=== PATIENT | male | born 1935 | race Caucasian/White ===

== ENCOUNTER 2017-01-18 17:30 | Inpatient (IN) | payer OTHER, MEDICARE ==
[~2017-01-18] VITALS: Ht 188 cm; Wt 107.1 kg
--- NOTE | 2017-01-18 17:30 | NUR ---
Patient to ER bed 1 to gown for evaluation. Side rails up. Report given to Liz FERNANDES.
--- NOTE | 2017-01-18 17:35 | NUR ---
Patient to ER C/O SOB. Patient states that yesterday he felt sick and today he is unable to breathe. AAOx4, accessory muscle effort, lower bases crackles, diminished upper lobes, rhonchi, productive cough.
--- NOTE | 2017-01-18 17:36 | NUR ---
ER MD Kerr at bedside for evaluation
[2017-01-18 17:40] VITALS: BP 150/77; PULSE 77; RESP 26; TEMP 98.1; O2SAT 89
--- NOTE | 2017-01-18 17:40 | NUR ---
RT at bedside for breathing treatments
[2017-01-18] MEDS ORDERED: LEVOFLOXACIN 500 MG/D5W 100 ML IV ONE (17:45)
[2017-01-18] MEDS ORDERED: ASPIRIN 81 MG TAB.CHEW PO ONE (17:45)
[2017-01-18] MEDS ORDERED: ALBUTEROL SULFATE 0.083% 2.5 MG/3 ML VIAL.NEB INH ONE (17:45)
[2017-01-18] MEDS ORDERED: FUROSEMIDE 40 MG/4 ML VIAL IVP ONE (17:45)
[2017-01-18] MEDS ORDERED: NITROGLYCERIN 1 INCH (GM) OINT. TP ONE (17:45)
[2017-01-18 17:57] LABS: BASOPHILS % (AUTO) 0.1 % (0.0-2.0); MEAN CORPUSCULAR HGB CONC 34 % (32-36)
[2017-01-18 18:01] LABS: ANION GAP 11 (5-15); CALCIUM 8.7 mg/dL (8.4-11.0); CHLORIDE 104 mmol/L (98-107); CREATININE 1.21 mg/dL (0.55-1.30); GLUCOSE 163 mg/dL (70-99); POTASSIUM 4.2 mmol/L (3.5-5.1); SODIUM SERUM 139 mmol/L (136-145); UREA NITROGEN, BLOOD 39 mg/dL (8-21)
[2017-01-18 18:06] LABS: ALANINE AMINOTRANSFERASE 76 U/L (12-78); ALBUMIN 3.2 g/dL (3.4-4.8); ASPARTATE AMINOTRANSFERASE 52 U/L (10-37); TOTAL BILIRUBIN 2.1 mg/dL (0.0-1.0); TOTAL PROTEIN, SERUM 6.7 g/dL (6.4-8.3)
[2017-01-18 18:10] LABS: INR 1.4 (0.80-1.20); PROTHROMBIN TIME 15.6 SECS (9.5-12.5)
[2017-01-18 18:11] LABS: LYMPHOCYTES # (AUTO) 1.3 K/uL (1.0-5.5); LYMPHOCYTES % (AUTO) 10.4 % (20.5-51.5); MEAN CORPUSCULAR HEMOGLOBIN 31 pg (27-31); MEAN CORPUSCULAR VOLUME 89 fL (79.0-98.0); MONOCYTES # (AUTO) 2.1 K/uL (0.0-1.0); MONOCYTES % (AUTO) 17.5 % (1.7-9.3); NEUTROPHILS # (AUTO) 8.7 K/uL (1.8-7.7); RED BLOOD CELL COUNT(AUTO) 3.92 MIL/uL (4.2-6.2); RED CELL DISTRIBUTION WIDTH 13.6 % (9.0-15.0); WHITE BLOOD COUNT (AUTO) 12.1 K/uL (4.8-10.8)
[2017-01-18 18:11] LABS: ABG TOTAL HEMOGLOBIN 12.5 G/dL (12.0-18.0); BLOOD GAS BASE EXCESS -2.8 mmol/L (-3.0-3.0); BLOOD GAS COHb% 0.9 % (0.5-1.5); BLOOD GAS HHB 1.3 % (0.0-6.0); BLOOD GAS PH 7.385 (7.350-7.450); BLOOD O2Hb% 97.2 % (94.0-97.0)
[2017-01-18] MEDS ORDERED: OMEP20CA10 PO (18:21)
[2017-01-18] MEDS ORDERED: IBRU140C PO (18:21)
[2017-01-18] MEDS ORDERED: APIX5TAB PO (18:21)
[2017-01-18] MEDS ORDERED: CORCR40 PO (18:21)
[2017-01-18] MEDS ORDERED: DDA.1 PO (18:21)
[2017-01-18] MEDS ORDERED: LISI2.5T48 PO (18:21)
[2017-01-18] MEDS ORDERED: ACET-1010 PO (18:21)
--- NOTE | 2017-01-18 18:21 | NUR ---
Medication reconciliation completed with information provided by - handwritten list from patient. Any prior medication reconciliation on file was reviewed and corrected.
[2017-01-18 18:38] LABS: PLATELET COUNT (AUTO) 112 K/uL (130-430)
--- NOTE | 2017-01-18 18:42 | NUR ---
Patient meets SEPSIS protocol. ER MD Kerr aware of presentation and lab results. Awaiting fluids & ABX
[2017-01-18 18:46] LABS: BILIRUBIN,URINE 1+ (NEGATIVE); BLOOD, URINE TRACE (NEGATIVE); CLARITY/URINE CLEAR (CLEAR); COLOR,URINE YELLOW (YELLOW); GLUCOSE,URINE NEGATIVE (NEGATIVE); KETONES,URINE TRACE (NEGATIVE); LEUKOCYTE ESTERASE ,URINE NEGATIVE (NEGATIVE); NITRITE, URINE NEGATIVE (NEGATIVE); PROTEIN URINE 1+ (NEGATIVE)
[2017-01-18 18:55] LABS: BACTERIA,URINE FEW /HPF (None Seen); FINE GRANULAR CASTS,URINE 0-10 /LPF (None Seen); MUCUS,URINE 2+ /LPF (None Seen); RBC,URINE 0-3 /HPF (0-3); WBC,URINE 0-3 /HPF (0-3)
--- NOTE | 2017-01-18 19:05 | NUR ---
Patient will be admitted to care of DR ALFARO. Admitted to ICU unit. Will go to room ER HOLD. Belongings list completed. Summary report printed. Report given to RN.
--- NOTE | 2017-01-18 19:07 | NUR ---
ICU HOLD per ICU charge, no beds or nurses available. food service supervisor and charge nurse aware.
--- NOTE | 2017-01-18 19:30 | NUR ---
Calling consults Dr Winchester - Cardiology Dr Craig - Pulmonology
--- NOTE | 2017-01-18 19:47 | NUR ---
MD ALFARO at bedside evaluating the patient.
--- NOTE | 2017-01-18 20:06 | NUR ---
Patient evaluated by MD Gloria. Per MD Gloria patient is downgraded to TELE floor.
--- NOTE | 2017-01-18 20:09 | NUR ---
Patient will be admitted to care of DR ALFARO. Admitted to TELE IN unit. Will go to room 107A. Belongings list completed. Summary report printed. Report given to RN.
--- NOTE | 2017-01-18 20:12 | NUR ---
Transfer to 107A via ACLS protocol. Licensed nurse present. IV present no signs or symptoms of infiltration.
--- NOTE | 2017-01-18 20:24 | NUR ---
CONSULTATION PAGED REASON FOR CONSULTATION:PNEUMONIA,CLL WAS CONSULT CALLED?Y PERSON WHO WAS NOTIFIED:JUAN CARLOS CONSULTING PHYSICIAN:YONNY BYRD LAND LEASE INFORMATION CLERK SPECIALTY:INFECTIOUS DISEASE LAND LEASE INFORMATION CLERK PHONE NUMBER:[phone]
--- NOTE | 2017-01-18 20:24 | NUR ---
Admission Note Received patient from ER with diagnosis of ARF, PNA. Initial Plan of Care discussed-patient verbalized understanding. Family at bedside. Oriented to room, call light, pain management and safety.
[2017-01-18] MEDS ORDERED: ACETAMINOPHEN 500 MG TABLET PO SCH (20:30)
--- NOTE | 2017-01-18 20:30 | NUR ---
opening note received patient resting in bed. vs stable. no s/s resp distress. oxymizer in place at 3liters. 02 sat 95%. discoloration noted to bilat lower extremities. occasional coughing noted. no c/o pain. comm board updated.
--- NOTE | 2017-01-18 20:32 | NUR ---
CONSULTATION PAGED REASON FOR CONSULTATION:ELEVATED TROPONIN WAS CONSULT CALLED?Y PERSON WHO WAS NOTIFIED:KATE CONSULTING PHYSICIAN:NAWAF LEIGH STATEMENT CLERK SPECIALTY:RELIGIOUS ACTIVITIES DIRECTOR PHONE NUMBER:[phone]
[2017-01-18 20:36] VITALS: BP 133/81; PULSE 60; RESP 22; TEMP 98.2; O2SAT 95
--- NOTE | 2017-01-18 20:38 | NUR ---
CONSULTATION PAGED REASON FOR CONSULTATION:ACUTE RESPIRATORY FAILURE, PNEUMONIA WAS CONSULT CALLED?Y PERSON WHO WAS NOTIFIED:JUAN CARLOS CONSULTING PHYSICIAN:SARA BOURNE ([employer]) SANDBLASTER STONE SPECIALTY:PULMONARY SANDBLASTER STONE PHONE NUMBER:[phone]
[2017-01-18 21:00] VITALS: BP 133/81; PULSE 64; RESP 22; TEMP 97.8; O2SAT 95
[2017-01-18] MEDS ORDERED: IBRUTINIB 420 MG PO SCH (21:00)
[2017-01-18] MEDS: NITROGLYCERIN 1 INCH (GM) OINT. TP SCH (22:18)
[2017-01-18] MEDS: CARVEDILOL 12.5 MG TABLET (COREG) PO SCH (22:19)
[2017-01-18] MEDS: CEFEPIME 1 GM in D5W 50 ML IV SCH (23:00)
[2017-01-18] MEDS: ALBUTEROL SULFATE 0.083% 2.5 MG/3 ML VIAL.NEB INH SCH (23:34)
[2017-01-18] MEDS: IPRATROPIUM BROM 0.5 MG/2.5 ML VIAL.NEB (ATROVENT) INH PRN (23:34)
[2017-01-18 23:45] VITALS: BP 133/81; PULSE 65
[2017-01-19 00:35] VITALS: BP 109/58; PULSE 77; RESP 21; TEMP 97.6; O2SAT 95
[2017-01-19] MEDS: guaiFENesin 200 MG/10 ML UDC PO PRN ×3 (02:57→23:11)
--- NOTE | 2017-01-19 02:58 | NUR ---
cough pt continues to rest. cough med given as ordered for cough. will continue to monitor. no s/s resp distress.
[2017-01-19] MEDS: IPRATROPIUM BROM 0.5 MG/2.5 ML VIAL.NEB (ATROVENT) INH PRN (03:50)
[2017-01-19] MEDS: ALBUTEROL SULFATE 0.083% 2.5 MG/3 ML VIAL.NEB INH SCH ×4 (03:50→19:46)
[2017-01-19 04:21] VITALS: BP 117/64; PULSE 58; RESP 21; TEMP 97.8; O2SAT 95
--- NOTE | 2017-01-19 05:00 | NUR ---
RN ROUNDS PT. RESTING QUIETLY, VITAL SIGNS STABLE, NO DISTRESS NOTED, DENIES PAIN, CALL LIGHT WITHIN REACH, WILL CONTINUE TO MONITOR. Addendum: 01/20/17 at 2002 by Lynette Villa RN DISREGARD NOTE, WRONG DATE ENTERED
[2017-01-19] MEDS: NITROGLYCERIN 1 INCH (GM) OINT. TP SCH ×3 (06:00→21:25)
[2017-01-19 06:28] LABS: HEMATOCRIT 32.7 % (36-54); HEMOGLOBIN 10.5 g/dL (14.0-18.0); LYMPHOCYTES # (AUTO) 0.6 K/uL (1.0-5.5); LYMPHOCYTES % (AUTO) 7.9 % (20.5-51.5); MEAN CORPUSCULAR HEMOGLOBIN 30 pg (27-31); MEAN CORPUSCULAR HGB CONC 32 % (32-36); MEAN CORPUSCULAR VOLUME 92 fL (79.0-98.0); MONOCYTES # (AUTO) 0.8 K/uL (0.0-1.0); MONOCYTES % (AUTO) 11.1 % (1.7-9.3); NEUTROPHILS # (AUTO) 5.9 K/uL (1.8-7.7); RED BLOOD CELL COUNT(AUTO) 3.57 MIL/uL (4.2-6.2); RED CELL DISTRIBUTION WIDTH 13.6 % (9.0-15.0)
--- NOTE | 2017-01-19 06:30 | NUR ---
rounds pt resting. no coughing noted at this time . cough medication effective. blood pressure 100/53. hr 61 held nitropaste. will endorse to morning nurse. no s/s resp distress. respirations even and unlabored.
[2017-01-19 06:40] LABS: ALANINE AMINOTRANSFERASE 68 U/L (12-78); ALBUMIN 2.6 g/dL (3.4-4.8); ANION GAP 9 (5-15); ASPARTATE AMINOTRANSFERASE 45 U/L (10-37); CALCIUM 8.5 mg/dL (8.4-11.0); CHLORIDE 105 mmol/L (98-107); CREATININE 0.98 mg/dL (0.55-1.30); GLUCOSE 142 mg/dL (70-99); POTASSIUM 3.7 mmol/L (3.5-5.1); SODIUM SERUM 139 mmol/L (136-145); TOTAL BILIRUBIN 1.5 mg/dL (0.0-1.0); TOTAL PROTEIN, SERUM 5.9 g/dL (6.4-8.3); UREA NITROGEN, BLOOD 38 mg/dL (8-21)
[2017-01-19 07:02] LABS: WHITE BLOOD COUNT (AUTO) 7.3 K/uL (4.8-10.8)
--- NOTE | 2017-01-19 08:30 | NUR ---
AM handoff report and vital signs.
[2017-01-19 08:39] LABS: PLATELET COUNT (AUTO) 51 K/uL (130-430)
[2017-01-19] MEDS: FLUTICASONE PROPIONATE 50 mCg/SPRAY 16 GM NS SCH ×2 (09:00→21:00)
[2017-01-19] MEDS: OMEPRAZOLE 20 MG CAPSULE.DR (PriLOSEC) PO SCH (09:04)
[2017-01-19] MEDS: CARVEDILOL 12.5 MG TABLET (COREG) PO SCH ×2 (09:04→21:24)
[2017-01-19] MEDS: LISINOPRIL 5 MG TABLET PO SCH (09:04)
[2017-01-19] MEDS: APIXABAN 2.5 MG TABLET PO SCH ×2 (09:06→21:24)
--- NOTE | 2017-01-19 09:07 | NUR ---
Nutrition Update Steve Scale 15 noted. Pt admitted for acute respiratory failure, pneumonia. Diet: cardiac BMI: 30.7 kg/m2 RD to follow per nutrition care standards.
[2017-01-19] MEDS: methylPREDNISolone SOD SUCC/PF 62.5 MG/ML VIAL IVP SCH ×2 (09:09→21:23)
[2017-01-19] MEDS: DESMOPRESSIN 0.1 MG TAB (DDAVP) PO SCH (09:09)
[2017-01-19] MEDS: TEARS ARTIFICIAL 15 ML DROPS OP PRN (09:09)
[2017-01-19 09:15] VITALS: BP 105/71; PULSE 63; RESP 20; TEMP 97.2; O2SAT 93
--- NOTE | 2017-01-19 10:30 | NUR ---
Patient rounds. Slight confusion. Will continue to monitor for safety.
[2017-01-19 11:46] VITALS: BP 119/54; PULSE 63; RESP 20; TEMP 98; O2SAT 98
[2017-01-19 12:32] VITALS: Ht 188 cm; Wt 107.1 kg
--- NOTE | 2017-01-19 12:42 | NUR ---
Rounds to patient. Given extra orange juice at this time.
[2017-01-19] MEDS ORDERED: FUROSEMIDE 20 MG/2 ML VIAL IVP ONE (14:45)
[2017-01-19] MEDS: IPRATROPIUM BROM 0.5 MG/2.5 ML VIAL.NEB (ATROVENT) INH SCH ×2 (16:00→19:47)
[2017-01-19 16:07] VITALS: BP 116/52; PULSE 70; RESP 20; TEMP 97.8; O2SAT 97
[2017-01-19] MEDS: MONTELUKAST 10 MG TABLET PO SCH (17:53)
[2017-01-19] MEDS ORDERED: VANCOMYCIN HCL 1 GM/NS PREMIX 250 ML IV ONE (18:00)
[2017-01-19 19:45] VITALS: BP 112/56; PULSE 57; RESP 20; TEMP 97.6; O2SAT 97
--- NOTE | 2017-01-19 19:45 | NUR ---
PM ASSESSMENT PT. A/OX4, VITAL SIGNS STABLE, NO DISTRESS NOTED, DENIES PAIN, PT. IS CURRENTLY RECEIVING BREATHING TREATMENT AT THIS TIME. UPDATED WITH PLAN OF CARE, ENCOURAGED PT. TO USE CALL LIGHT FOR ASSISTANCE, CALL LIGHT WITHIN REACH, WILL CONTINUE TO MONITOR.
[2017-01-19] MEDS: CEFEPIME 1 GM in D5W 50 ML IV SCH (21:23)
--- NOTE | 2017-01-19 21:30 | NUR ---
RN ROUNDS PT. RESTING QUIETLY, VITAL SIGNS STABLE, NO DISTRESS NOTED, DENIES PAIN, CALL LIGHT WITHIN REACH, WILL CONTINUE TO MONITOR.
[2017-01-19] MEDS: LEVOFLOXACIN 500 MG/D5W 100 ML IV SCH (23:21)
--- NOTE | 2017-01-19 23:46 | NUR ---
PT. REFUSED SCDS PT. REFUSED SCDS, EDUCATION GIVEN REGARDING DVT PROPHYLAXIS, PT. STILL REFUSED SCDS, SCDS NOT APPLIED.
[2017-01-20] VITALS (7 sets, daily range): BP systolic 119–145; BP diastolic 68–94; PULSE 60–67; RESP 18–21; TEMP 97–98.1; O2SAT 93–97
[2017-01-20] MEDS: ALBUTEROL SULFATE 0.083% 2.5 MG/3 ML VIAL.NEB INH SCH ×7 (00:15→23:25)
[2017-01-20] MEDS: IPRATROPIUM BROM 0.5 MG/2.5 ML VIAL.NEB (ATROVENT) INH SCH ×7 (00:15→23:25)
--- NOTE | 2017-01-20 00:34 | NUR ---
Consultation Paged Reason for consultation: Thrombocytopenia Was consult called: Yes Person who was notified: Lashawn Consulting Physician: Abimael Gabriel Community Educator Specialty: Hematology Consulting
--- NOTE | 2017-01-20 01:00 | NUR ---
RN ROUNDS PT. RESTING QUIETLY, VITAL SIGNS STABLE, NO DISTRESS NOTED, DENIES PAIN, CALL LIGHT WITHIN REACH, WILL CONTINUE TO MONITOR.
--- NOTE | 2017-01-20 03:00 | NUR ---
RN ROUNDS PT. RESTING QUIETLY, VITAL SIGNS STABLE, NO DISTRESS NOTED, DENIES PAIN, CALL LIGHT WITHIN REACH, WILL CONTINUE TO MONITOR.
--- NOTE | 2017-01-20 05:00 | NUR ---
RN ROUNDS PT. RESTING QUIETLY, VITAL SIGNS STABLE, NO DISTRESS NOTED, DENIES PAIN, CALL LIGHT WITHIN REACH, WILL CONTINUE TO MONITOR.
[2017-01-20] MEDS: NITROGLYCERIN 1 INCH (GM) OINT. TP SCH ×3 (05:44→21:21)
--- NOTE | 2017-01-20 06:30 | NUR ---
CLOSING NOTES PT. RESTING QUIETLY, VITAL SIGNS STABLE, NO DISTRESS NOTED, DENIES PAIN, CALL LIGHT WITHIN REACH, KEPT COMFORTABLE.
[2017-01-20 06:33] LABS: BASOPHILS % (AUTO) 0.1 % (0.0-2.0); HEMATOCRIT 33.5 % (36-54); HEMOGLOBIN 10.9 g/dL (14.0-18.0); LYMPHOCYTES % (AUTO) 10.3 % (20.5-51.5); MEAN CORPUSCULAR HEMOGLOBIN 30 pg (27-31); MEAN CORPUSCULAR HGB CONC 33 % (32-36); MEAN CORPUSCULAR VOLUME 91 fL (79.0-98.0); MONOCYTES # (AUTO) 0.7 K/uL (0.0-1.0); MONOCYTES % (AUTO) 7.5 % (1.7-9.3); NEUTROPHILS # (AUTO) 8.3 K/uL (1.8-7.7); NEUTROPHILS % (AUTO) 82.1 % (40.0-70.0); RED BLOOD CELL COUNT(AUTO) 3.69 MIL/uL (4.2-6.2); RED CELL DISTRIBUTION WIDTH 13.7 % (9.0-15.0)
[2017-01-20 07:01] LABS: INR 1.2 (0.80-1.20); PROTHROMBIN TIME 13.2 SECS (9.5-12.5)
[2017-01-20 08:12] LABS: PLATELET COUNT (AUTO) 97 K/uL (130-430)
[2017-01-20] MEDS: FLUTICASONE PROPIONATE 50 mCg/SPRAY 16 GM NS SCH ×2 (09:00→20:26)
[2017-01-20] MEDS: APIXABAN 2.5 MG TABLET PO SCH ×2 (11:25→20:25)
[2017-01-20] MEDS: OMEPRAZOLE 20 MG CAPSULE.DR (PriLOSEC) PO SCH (11:25)
[2017-01-20] MEDS: methylPREDNISolone SOD SUCC/PF 62.5 MG/ML VIAL IVP SCH (11:25)
[2017-01-20] MEDS: guaiFENesin 200 MG/10 ML UDC PO PRN ×2 (11:25→17:47)
[2017-01-20] MEDS: CARVEDILOL 12.5 MG TABLET (COREG) PO SCH ×2 (11:26→20:26)
[2017-01-20] MEDS: LISINOPRIL 5 MG TABLET PO SCH (11:26)
[2017-01-20] MEDS: TEARS ARTIFICIAL 15 ML DROPS OP PRN (11:28)
[2017-01-20] MEDS: DESMOPRESSIN 0.1 MG TAB (DDAVP) PO SCH (11:28)
[2017-01-20] MEDS: CEFEPIME 1 GM in D5W 50 ML IV SCH ×2 (11:29→20:25)
[2017-01-20] MEDS: MONTELUKAST 10 MG TABLET PO SCH (17:45)
--- NOTE | 2017-01-20 19:50 | NUR ---
PM ASSESSMENT PT. A/OX4, VITAL SIGNS STABLE, NO DISTRESS NOTED, DENIES PAIN, PT. IS ON ROOM AIR WITH O2 SAT. 93%, BILATERAL SCDS IN PLACE, UPDATED WITH PLAN OF CARE, ENCOURAGED PT. TO USE CALL LIGHT FOR ASSISTANCE, CALL LIGHT WITHIN REACH, WILL CONTINUE TO MONITOR.
[2017-01-20] MEDS: LEVOFLOXACIN 500 MG/D5W 100 ML IV SCH (21:21)
--- NOTE | 2017-01-20 21:39 | NUR ---
RN ROUNDS PT. RESTING QUIETLY, VITAL SIGNS STABLE, NO DISTRESS NOTED, DENIES PAIN, CALL LIGHT WITHIN REACH, WILL CONTINUE TO MONITOR.
--- NOTE | 2017-01-20 23:42 | NUR ---
RN ROUNDS PT. RESTING QUIETLY, VITAL SIGNS STABLE, NO DISTRESS NOTED, DENIES PAIN, CALL LIGHT WITHIN REACH, WILL CONTINUE TO MONITOR.
[2017-01-21] VITALS: BP 139/84; PULSE 61; RESP 20; TEMP 97.2; O2SAT 99
--- NOTE | 2017-01-21 01:30 | NUR ---
RN ROUNDS PT. RESTING QUIETLY, VITAL SIGNS STABLE, NO DISTRESS NOTED, DENIES PAIN, CALL LIGHT WITHIN REACH, WILL CONTINUE TO MONITOR.
[2017-01-21] MEDS: IPRATROPIUM BROM 0.5 MG/2.5 ML VIAL.NEB (ATROVENT) INH SCH ×6 (03:20→23:54)
[2017-01-21] MEDS: ALBUTEROL SULFATE 0.083% 2.5 MG/3 ML VIAL.NEB INH SCH ×6 (03:20→23:54)
--- NOTE | 2017-01-21 03:30 | NUR ---
RN ROUNDS PT. RESTING QUIETLY, VITAL SIGNS STABLE, NO DISTRESS NOTED, DENIES PAIN, CALL LIGHT WITHIN REACH, WILL CONTINUE TO MONITOR.
[2017-01-21 04:15] VITALS: BP 141/77; PULSE 60; RESP 20; TEMP 97.2; O2SAT 96
--- NOTE | 2017-01-21 05:30 | NUR ---
RN ROUNDS PT. RESTING QUIETLY, VITAL SIGNS STABLE, NO DISTRESS NOTED, DENIES PAIN, CALL LIGHT WITHIN REACH, WILL CONTINUE TO MONITOR.
[2017-01-21] MEDS: NITROGLYCERIN 1 INCH (GM) OINT. TP SCH ×3 (05:54→21:36)
--- NOTE | 2017-01-21 06:39 | NUR ---
CLOSING NOTES PT. RESTING QUIETLY, VITAL SIGNS STABLE, NO DISTRESS NOTED, DENIES PAIN, CALL LIGHT WITHIN REACH, IV ACCESS PATENT AND BENIGN, ALL ANTICIPATED NEEDS MET, KEPT COMFORTABLE.
--- NOTE | 2017-01-21 08:30 | NUR ---
Patient awake and alert, oriented x 4. Patient is paced on monitor on telemetry. He is pleasant and cooperative. No co pain. Eating breakfast and consumes 100%. Jarod Small RN
[2017-01-21] MEDS: DESMOPRESSIN 0.1 MG TAB (DDAVP) PO SCH (08:55)
[2017-01-21] MEDS: TEARS ARTIFICIAL 15 ML DROPS OP PRN (08:56)
[2017-01-21] MEDS: FLUTICASONE PROPIONATE 50 mCg/SPRAY 16 GM NS SCH ×2 (08:56→20:56)
[2017-01-21] MEDS: OMEPRAZOLE 20 MG CAPSULE.DR (PriLOSEC) PO SCH (08:57)
[2017-01-21] MEDS: APIXABAN 2.5 MG TABLET PO SCH ×2 (08:57→20:55)
[2017-01-21] MEDS: LISINOPRIL 5 MG TABLET PO SCH (08:58)
[2017-01-21] MEDS: CEFEPIME 1 GM in D5W 50 ML IV SCH ×2 (08:59→20:55)
[2017-01-21] MEDS: CARVEDILOL 12.5 MG TABLET (COREG) PO SCH ×2 (08:59→20:55)
[2017-01-21 09:35] VITALS: BP 140/92; PULSE 62
[2017-01-21 12:03] VITALS: BP 151/76; PULSE 63; RESP 20; TEMP 97.7; O2SAT 96
--- NOTE | 2017-01-21 14:00 | NUR ---
Patient IV out during using urinal, and second RN applies pressure, and right ac site wrapped with guaze. IV #22 started left arm with good blood return. Jarod Small RN
[2017-01-21] MEDS: guaiFENesin 200 MG/10 ML UDC PO PRN (14:50)
--- NOTE | 2017-01-21 16:30 | NUR ---
Family friend visits patient, and I did update on present condition. The patient has been off 02 all day, and 02 sat wnl. Jarod Small RN
[2017-01-21 16:47] VITALS: BP 129/62; PULSE 63; RESP 20; TEMP 98; O2SAT 95
[2017-01-21] MEDS: MONTELUKAST 10 MG TABLET PO SCH (18:12)
--- NOTE | 2017-01-21 19:30 | NUR ---
PM ASSESSMENT: Patient alert and oriented x 3. Able to make needs known verbally. Afebrile. Paced on the monitor. Patient on O2 2LPM via nasal cannula. IV access on the left wrist G 20, saline lock, patent and intact. No signs of redness or swelling on the IV site. SCDs on the floor. Patient refuses to use SCDs at this time. Patient uses urinal. Denies any pain or discomfort. All needs met. Call light within reach. Will continue to monitor.
[2017-01-21 20:00] VITALS: BP 139/76; PULSE 64; RESP 22; TEMP 97.9; O2SAT 95
[2017-01-21] MEDS: LEVOFLOXACIN 500 MG/D5W 100 ML IV SCH (20:54)
--- NOTE | 2017-01-21 22:20 | NUR ---
PT UPDATE: Patient was assisted by charge nurse to the restroom. Patient assisted back to bed without any incident. No SOB nor acute distress noted at this time. Will continue to monitor.
[2017-01-22] VITALS: BP 143/63; PULSE 60; RESP 18; TEMP 97.7; O2SAT 99
[2017-01-22] MEDS: guaiFENesin 200 MG/10 ML UDC PO PRN ×3 (00:38→20:29)
--- NOTE | 2017-01-22 00:44 | NUR ---
COUGH: Patient noted to have dry hacking cough. Cough medicine given. Afebrile. No acute distress or SOB noted. Made comfortable. Patient can reposition self. Will continue to monitor.
[2017-01-22] MEDS: ALBUTEROL SULFATE 0.083% 2.5 MG/3 ML VIAL.NEB INH SCH ×5 (03:58→19:54)
[2017-01-22] MEDS: IPRATROPIUM BROM 0.5 MG/2.5 ML VIAL.NEB (ATROVENT) INH SCH ×5 (03:58→19:54)
[2017-01-22 04:10] VITALS: BP 150/84; PULSE 67; RESP 18; TEMP 99; O2SAT 94
[2017-01-22] MEDS: NITROGLYCERIN 1 INCH (GM) OINT. TP SCH ×3 (05:36→23:56)
[2017-01-22 07:23] LABS: ALANINE AMINOTRANSFERASE 47 U/L (12-78); ALBUMIN 2.4 g/dL (3.4-4.8); ANION GAP 3 (5-15); ASPARTATE AMINOTRANSFERASE 21 U/L (10-37); CALCIUM 7.8 mg/dL (8.4-11.0); CHLORIDE 108 mmol/L (98-107); CREATININE 0.86 mg/dL (0.55-1.30); GLUCOSE 95 mg/dL (70-99); POTASSIUM 4.2 mmol/L (3.5-5.1); SODIUM SERUM 142 mmol/L (136-145); TOTAL BILIRUBIN 0.9 mg/dL (0.0-1.0); TOTAL PROTEIN, SERUM 5.5 g/dL (6.4-8.3); UREA NITROGEN, BLOOD 30 mg/dL (8-21)
[2017-01-22 07:36] LABS: BASOPHILS % (AUTO) 0.3 % (0.0-2.0); EOSINOPHILS # (AUTO) 0.3 K/uL (0.0-0.4); EOSINOPHILS % (AUTO) 3.3 % (0.0-4.0); HEMATOCRIT 33.9 % (36-54); HEMOGLOBIN 11.2 g/dL (14.0-18.0); LYMPHOCYTES # (AUTO) 1.1 K/uL (1.0-5.5); LYMPHOCYTES % (AUTO) 11.1 % (20.5-51.5); MEAN CORPUSCULAR HEMOGLOBIN 30 pg (27-31); MEAN CORPUSCULAR HGB CONC 33 % (32-36); MEAN CORPUSCULAR VOLUME 91 fL (79.0-98.0); MONOCYTES # (AUTO) 1.2 K/uL (0.0-1.0); MONOCYTES % (AUTO) 11.3 % (1.7-9.3); NEUTROPHILS # (AUTO) 7.6 K/uL (1.8-7.7); RED BLOOD CELL COUNT(AUTO) 3.74 MIL/uL (4.2-6.2); RED CELL DISTRIBUTION WIDTH 13.4 % (9.0-15.0); WHITE BLOOD COUNT (AUTO) 10.2 K/uL (4.8-10.8)
[2017-01-22 08:00] VITALS: BP 123/55; PULSE 60; RESP 18; TEMP 97.4; O2SAT 97
--- NOTE | 2017-01-22 08:00 | NUR ---
initial notes rec patient asleep but arousable to stimuli hob elevated with o2 at 2 liters via nasal cannula. no acute distress noted. on breathing tx at bedside and chip well. bed in low position and side rails up and locked. call light within reached. will continue to monitor patient.
[2017-01-22 08:33] LABS: PLATELET COUNT (AUTO) 153 K/uL (130-430)
[2017-01-22] MEDS: TEARS ARTIFICIAL 15 ML DROPS OP PRN (09:48)
[2017-01-22] MEDS: APIXABAN 2.5 MG TABLET PO SCH ×2 (09:48→20:30)
[2017-01-22] MEDS: OMEPRAZOLE 20 MG CAPSULE.DR (PriLOSEC) PO SCH (09:48)
[2017-01-22] MEDS: DESMOPRESSIN 0.1 MG TAB (DDAVP) PO SCH (09:49)
[2017-01-22] MEDS: FLUTICASONE PROPIONATE 50 mCg/SPRAY 16 GM NS SCH ×2 (09:49→20:29)
[2017-01-22] MEDS: LISINOPRIL 5 MG TABLET PO SCH (09:57)
[2017-01-22] MEDS: CARVEDILOL 12.5 MG TABLET (COREG) PO SCH ×2 (09:58→20:30)
[2017-01-22] MEDS: CEFEPIME 1 GM in D5W 50 ML IV SCH ×2 (09:59→20:29)
[2017-01-22 11:45] VITALS: BP 136/93; PULSE 67; RESP 19; TEMP 97.9; O2SAT 93
--- NOTE | 2017-01-22 12:00 | NUR ---
rounds up sitting at the edge of the bed and eating lunch. no acute distress noted. call light within reached.
--- NOTE | 2017-01-22 14:15 | NUR ---
rounds sleeping when rounds made. stable no acute distress noted. due meds was
[2017-01-22 15:52] VITALS: BP 131/68; PULSE 60; RESP 19; TEMP 97.7; O2SAT 98
--- NOTE | 2017-01-22 16:00 | NUR ---
rounds assisted to the br and chip well with min assists. no sob noted.
--- NOTE | 2017-01-22 18:00 | NUR ---
rounds eating dinner at the edge of the bed slowly. no sob noted. call light within reached and knows when to call for assistance.
[2017-01-22] MEDS: MONTELUKAST 10 MG TABLET PO SCH (18:10)
--- NOTE | 2017-01-22 19:58 | NUR ---
OPENING NOTE PATIENT IS A/OX4. NO SIGNS OF DISTRESS. BREATHING IS NON LABORED. VITAL SIGNS ARE STABLE. IV IS PATENT AND SHOWS NO SIGNS OF COMPLICATION. O2 IS NOTED AND IS FLOWING. PATIENT HAS NO COMPLAINTS OF PAIN. PATIENT INSTRUCTED TO CALL FOR ASSISTANCE. CALL LIGHT IS WITHIN REACH. BED ALARM IS ON. SAFETY MEASURES ARE IN PLACE. WILL CONTINUE TO MONITOR.
[2017-01-22 20:00] VITALS: BP 144/73; PULSE 65; RESP 16; TEMP 98.3
[2017-01-22] MEDS: PREDNISONE 20 MG TABLET PO SCH (20:30)
--- NOTE | 2017-01-22 21:50 | NUR ---
ROUNDS PATIENT WAS ASSISTED TO THE RESTROOM AND BACK INTO BED. PATIENT INSTRUCTED TO CALL FOR ASSISTANCE. CALL LIGHT IS WITHIN REACH. BED ALARM IS ON. WILL CONTINUE TO MONITOR.
[2017-01-22] MEDS: LEVOFLOXACIN 500 MG/D5W 100 ML IV SCH (23:52)
[2017-01-23] VITALS: BP 136/68; PULSE 64; RESP 18; TEMP 98.8; O2SAT 94
[2017-01-23] MEDS: IPRATROPIUM BROM 0.5 MG/2.5 ML VIAL.NEB (ATROVENT) INH SCH ×7 (00:03→23:35)
[2017-01-23] MEDS: ALBUTEROL SULFATE 0.083% 2.5 MG/3 ML VIAL.NEB INH SCH ×7 (00:03→23:35)
--- NOTE | 2017-01-23 00:30 | NUR ---
ROUNDS PATIENT IS IN BED RESTING COMFORTABLY. NO SIGNS OF DISTRESS. BREATHING IS NON LABORED. NO COMPLAINTS OF PAIN. BED ALARM IS ON. CALL LIGHT IS WITHIN REACH. WILL CONTINUE TO MONITOR.
--- NOTE | 2017-01-23 02:25 | NUR ---
ROUNDS PATIENT WAS ASSISTED TO THE RESTROOM AND BACK INTO BED. NO SIGNS OF DISTRESS. BREATHING IS NON LABORED. PATIENT INSTRUCTED TO CALL FOR ASSISTANCE. CALL LIGHT IS WITHIN REACH. BED ALARM IS ON. WILL CONTINUE TO MONITOR.
--- NOTE | 2017-01-23 03:50 | NUR ---
URINARY RETENTION PATIENT COMPLAINED OF ABDOMINAL PAIN. UPON ABDOMINAL ASSESSMENT, PATIENT BLADDER WAS DISTENDED. PATIENT WAS BLADDER SCAN AND THE SCANNER RESULT IN 610 ML OF URINE RETENTION. WILL NOTIFY
--- NOTE | 2017-01-23 03:54 | NUR ---
PAGED PAGED .ELLEN AT [phone] SPOKE WITH GUNJAN.
[2017-01-23 04:00] VITALS: BP 151/79; PULSE 61; RESP 17; TEMP 98.7; O2SAT 98
--- NOTE | 2017-01-23 04:15 | NUR ---
CALLED BACK DR. ALFARO CALLED BACK. INFORMED MD OF BLADDER SCAN READING GREATER THAN 600. WILL INPUT NEW ORDERS.
--- NOTE | 2017-01-23 04:20 | NUR ---
DIEZ CATH: # 16 FR Diez catheter with 10 cc bulb inserted with use of sterile technique. Bulb inflated with 10 cc sterile water. Immediate return of 1100cc clear Laine urine noted. Bedside drainage bag placed below level of bladder. Urine sample collected and sent to lab. Pt tolerated procedure well.
[2017-01-23] MEDS ORDERED: traMADol HCL HCL 50 MG TABLET (ULTRAM) PO PRN (04:30)
[2017-01-23] MEDS: guaiFENesin 200 MG/10 ML UDC PO PRN ×2 (05:13→22:04)
[2017-01-23] MEDS: NITROGLYCERIN 1 INCH (GM) OINT. TP SCH ×3 (06:00→21:52)
--- NOTE | 2017-01-23 06:20 | NUR ---
0600 NITRO PASTE HELD HELD NITRO PASTE HELD. PATIENT BLOOD PRESSURE WAS LOW. BP= 97/73
--- NOTE | 2017-01-23 06:40 | NUR ---
IV INFILTRATION/ PATIENT REFUSED IV IS INFILTRATED. INFORMED PATIENT THAT IV NEEDS TO BE REPLACED. PATIENT STATED THAT " PLEASE NOT RIGHT NOW. I JUST WANT TO SLEEP. I HAVEN'T GOT A BIT OF SLEEP ALL NIGHT." WILL INFORM MORNING NURSE OF IV REPLACEMENT NEEDS.
--- NOTE | 2017-01-23 07:10 | NUR ---
CLOSING NOTES PATIENT IS IN BED SLEEPING. NO SIGNS OF DISTRESS. BREATHING IS NON LABORED. PATIENT REFUSED IV INSERTION. WILL INFORM MORNING NURSE. BED ALARM IS ON. CALL LIGHT IS WITHIN REACH. WILL ENDORSE CARE TO MORNING NURSE.
--- NOTE | 2017-01-23 07:54 | NUR ---
initial notes rec patient asleep but arousable to stimuli.with o2 at 2 liters via nasal cannula. no sob noted. hob slightly elevated. cramer cath intact and draining to mod amount of yumi output. bed in low position and side rails up and locked. call light within reached and know when to call for assistance.will continue to monitor patient.
[2017-01-23 08:00] VITALS: BP 127/74; PULSE 60; RESP 18; TEMP 97.4; O2SAT 97
[2017-01-23] MEDS ORDERED: TAMSULOSIN HCL 0.4 MG CAP PO SCH (09:30)
[2017-01-23] MEDS: DESMOPRESSIN 0.1 MG TAB (DDAVP) PO SCH (09:47)
[2017-01-23] MEDS: FLUTICASONE PROPIONATE 50 mCg/SPRAY 16 GM NS SCH ×2 (09:47→21:54)
[2017-01-23] MEDS: APIXABAN 2.5 MG TABLET PO SCH ×2 (09:49→21:51)
[2017-01-23] MEDS: PREDNISONE 20 MG TABLET PO SCH ×2 (09:49→21:52)
[2017-01-23] MEDS: CARVEDILOL 12.5 MG TABLET (COREG) PO SCH ×2 (09:49→21:52)
[2017-01-23] MEDS: OMEPRAZOLE 20 MG CAPSULE.DR (PriLOSEC) PO SCH (09:49)
[2017-01-23] MEDS: CEFEPIME 1 GM in D5W 50 ML IV SCH ×2 (09:50→21:51)
[2017-01-23] MEDS: LISINOPRIL 5 MG TABLET PO SCH (09:50)
--- NOTE | 2017-01-23 10:00 | NUR ---
rounds seen by dr acosta and with orders. sleeping sounfly at intervals. no acute distress.
--- NOTE | 2017-01-23 10:10 | NUR ---
CONSULT CALLED CONSULT JERALD WAN FOR URINARY RETENTION
[2017-01-23 12:00] VITALS: BP 127/65; PULSE 60; RESP 20; TEMP 97.7; O2SAT 95
--- NOTE | 2017-01-23 14:00 | NUR ---
rounds pt eating at this time. no sob noted. assisted to the br after with min assists and chip well.
[2017-01-23 16:00] VITALS: BP 124/65; PULSE 65; RESP 20; TEMP 98; O2SAT 95
[2017-01-23 17:21] LABS: BILIRUBIN,URINE NEGATIVE (NEGATIVE); BLOOD, URINE 3+ (NEGATIVE); CLARITY/URINE CLOUDY (CLEAR); COLOR,URINE YELLOW (YELLOW); GLUCOSE,URINE NEGATIVE (NEGATIVE); KETONES,URINE NEGATIVE (NEGATIVE); LEUKOCYTE ESTERASE ,URINE NEGATIVE (NEGATIVE); NITRITE, URINE NEGATIVE (NEGATIVE); PROTEIN URINE 1+ (NEGATIVE); UROBILINOGEN,URINE 0.2 (0.2-1.0)
[2017-01-23 17:30] LABS: BACTERIA,URINE FEW /HPF (None Seen); MUCUS,URINE None Seen /LPF (None Seen); RBC,URINE >100 /HPF (0-3)
[2017-01-23] MEDS: MONTELUKAST 10 MG TABLET PO SCH (17:45)
--- NOTE | 2017-01-23 18:00 | NUR ---
rounds seen by dr martinez with order.
--- NOTE | 2017-01-23 18:30 | NUR ---
closing notes pt went back to sleep after dinner. resting quietly at this time. no sob noted. stable.bed in low position.
[2017-01-23] MEDS: TAMSULOSIN HCL 0.4 MG CAP PO SCH (19:42)
--- NOTE | 2017-01-23 20:00 | NUR ---
ROUNDS PATIENT RESTING COMFORTABLY IN BED, NOT IN DISTRESS, VITALS STABLE, DENIES ANY PAIN AND DISCOMFORT AT THIS TIME. ASSESSMENT DONE AND DOCUMENTED. SEE FLOWSHEET. NEEDS ATTENDED TO. REPOSITIONED AND MADE COMFORTABLE. SAFETY AND FALL PRECAUTION MEASURES IN PLACED. CALL LIGHT PLACED WITHIN REACH.
--- NOTE | 2017-01-23 21:00 | NUR ---
MEDICATION DUE MEDICATIONS GIVEN SCHEDULED, TOLERATED WELL. WILL CONTINUE TO MONITOR.
[2017-01-23] MEDS: LEVOFLOXACIN 500 MG/D5W 100 ML IV SCH (22:32)
[2017-01-24] VITALS (7 sets, daily range): BP systolic 104–147; BP diastolic 60–82; PULSE 60–69; RESP 16–20; TEMP 96.4–98.8; O2SAT 94–97
--- NOTE | 2017-01-24 00:10 | NUR ---
PATIENT RESTING: Patient resting quietly. No acute distress noted. Vital signs within normal range.
--- NOTE | 2017-01-24 02:10 | NUR ---
ROUNDS PATIENT ASLEEP, NO SOB NOTED, WILL CONTINUE TO MONITOR.
[2017-01-24] MEDS: IPRATROPIUM BROM 0.5 MG/2.5 ML VIAL.NEB (ATROVENT) INH SCH ×6 (03:00→23:17)
[2017-01-24] MEDS: ALBUTEROL SULFATE 0.083% 2.5 MG/3 ML VIAL.NEB INH SCH ×6 (03:00→23:17)
--- NOTE | 2017-01-24 04:00 | NUR ---
PATIENT RESTING: Patient resting quietly. No acute distress noted. Vital signs within normal range.
[2017-01-24] MEDS: NITROGLYCERIN 1 INCH (GM) OINT. TP SCH (05:19)
--- NOTE | 2017-01-24 07:00 | NUR ---
CLOSING NOTES PATIENT AWAKE, VITALS STABLE, NO PAIN AT THIS TIME. ALL NEEDS ATTENDED TO. SAFETY AND FALL PRECAUTION MEASURES MAINTAINED. CALL LIGHT PLACED WITH PATIENT.
[2017-01-24 07:09] LABS: ANION GAP 3 (5-15); CHLORIDE 108 mmol/L (98-107); CREATININE 0.77 mg/dL (0.55-1.30); GLUCOSE 128 mg/dL (70-99); POTASSIUM 4.5 mmol/L (3.5-5.1); SODIUM SERUM 141 mmol/L (136-145); UREA NITROGEN, BLOOD 21 mg/dL (8-21)
[2017-01-24 07:11] LABS: BASOPHILS % (AUTO) 0.1 % (0.0-2.0); EOSINOPHILS # (AUTO) 0.1 K/uL (0.0-0.4); HEMATOCRIT 33.3 % (36-54); HEMOGLOBIN 10.6 g/dL (14.0-18.0); LYMPHOCYTES % (AUTO) 11.5 % (20.5-51.5); MEAN CORPUSCULAR HEMOGLOBIN 29 pg (27-31); MEAN CORPUSCULAR HGB CONC 32 % (32-36); MEAN CORPUSCULAR VOLUME 91 fL (79.0-98.0); MONOCYTES # (AUTO) 0.8 K/uL (0.0-1.0); MONOCYTES % (AUTO) 8.9 % (1.7-9.3); NEUTROPHILS # (AUTO) 6.7 K/uL (1.8-7.7); NEUTROPHILS % (AUTO) 78.5 % (40.0-70.0); PLATELET COUNT (AUTO) 113 K/uL (130-430); RED BLOOD CELL COUNT(AUTO) 3.65 MIL/uL (4.2-6.2); RED CELL DISTRIBUTION WIDTH 13.7 % (9.0-15.0); WHITE BLOOD COUNT (AUTO) 8.6 K/uL (4.8-10.8)
--- NOTE | 2017-01-24 08:00 | NUR ---
Patient is at rest, A/Ox4. Iv on left forearm, #20, SL. On O2 2L, satting at mid 90s%. Has F/C, draining yumi urine. Call light in place, bed at lowest position, instructed patient to use call light for needs.
[2017-01-24] MEDS: LISINOPRIL 5 MG TABLET PO SCH (08:07)
[2017-01-24] MEDS: APIXABAN 2.5 MG TABLET PO SCH ×2 (08:07→21:02)
[2017-01-24] MEDS: CEFEPIME 1 GM in D5W 50 ML IV SCH ×3 (08:07→21:09)
[2017-01-24] MEDS: OMEPRAZOLE 20 MG CAPSULE.DR (PriLOSEC) PO SCH (08:10)
[2017-01-24] MEDS: CARVEDILOL 12.5 MG TABLET (COREG) PO SCH ×2 (08:10→21:02)
[2017-01-24] MEDS: PREDNISONE 20 MG TABLET PO SCH ×2 (08:10→21:02)
[2017-01-24] MEDS: DESMOPRESSIN 0.1 MG TAB (DDAVP) PO SCH (08:11)
[2017-01-24] MEDS: FLUTICASONE PROPIONATE 50 mCg/SPRAY 16 GM NS SCH ×2 (08:16→21:03)
[2017-01-24] MEDS ORDERED: LEVOFLOXACIN 500 MG TABLET PO SCH (10:00)
--- NOTE | 2017-01-24 10:49 | NUR ---
DISCHARGE PLANNING DC order to [facility]. Faxed SNF referral to [facility] [phone]. will follow up. Addendum: 01/24/17 at 1523 by Serena MCDERMOTT [phone] keep coming back busy. spoke with Lew in admitting re-faxed referral to [facility] [phone]. Lew will return call to [facility] to confirm fax was received. Addendum: 01/24/17 at 1608 by Serena MCDERMOTT Spoke with Sylvia in admitting at [facility] patient accepted assigned to room 104A RN to report , bed available anytime. Confirmed patient currently not on BiPap and is on O2. DOM Jerome made aware. Called [facility] [phone] spoke with Francisco arranged BLS transport tow picker between 6-7pm. Placed transportation packet in nurses station.
--- NOTE | 2017-01-24 11:16 | NUR ---
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 fibr. per MD notes Pertinent Medications Levofloxacin IB, fluticasone propionate, cefepime HCl, prednisone, prilosec, desmopressin acetate, eliquis, coreg Current Diet Order Cardiac (x5 days) Height (Feet) 6 feet Height (Inches) 2.00 inches Weight (Pounds) 239 pounds (admission) 01/21/17: 236 lb, 107.06 kg (bedscale) Weight (Calculated Kilograms) 108.950831 kilograms Patient Weight 108.409 kg Body Mass Index (modified 01/24) 30.3 kg/m2 (overweight, geriatric status) [place]/Adjusted Body Weight IBW: 190 lb (86 kg), 124% of IBW; Adjusted IBW: 202 lb (92 kg) Estimated Needs 6422-2322 kcal/day (BEE x 1.2-1.5 for sepsis and cancer) Grams of Protein per Day 129-172 gm/day (1.5-2 gm/kg IBW for sepsis and cancer) Fluid Intake Goal 2.3-2.9 L/day (1 ml/kcal/day for maintenance) Pertinent Labs 01/24/17: Hgb 10.6 L, Hct 33.3 L, BUN 21 WNL (improved), BG 128 H 01/22/17: BNP 161 H, Procalcitonin 1.73 H 01/20/17: Tbili 0.9 WNL (improved), AST 21 WNL (improved), ALB 2.4 L 01/19/17: Troponin 0.037 WNL (improved) Other Subjective Data Physical: Pt seen awake and alert resting in bed. Per recorded wt 01/21/17, pt's weight stable. Slight wt loss likely d/t reduction in edema. GI Integrity: Abdomen is soft and non-distended with active bowel sounds. BM x1 yesterday, normal stool. No BM today. States BM every 2 days is normal for him. Pt denies any n/v/d/c at this time. PO Intakes: PO records average 91% x 12 meals. Pt reports good appetite. Plans/Procedures: Active DC order to SNF. Current diet is appropriate, pt is tolerating and meeting optimum nutrition. Pt declined nutrition education at this time. Problem, Etiology, Signs/Symptoms Increased nutrient needs related to catabolic illness and metabolic demands as evidenced by increased estimated caloric and protein needs for sepsis and cancer. * ongoing Expected Outcomes or Goals 1. Monitor PO intakes with goal of meeting at least 75% of estimated needs with acceptable tolerance 2. Labs trending within normal limits 3. Weight maintenance 4. Maintain skin integrity 5. Maintain normal GI function Dietitian Recommendations * Continue cardiac diet per MD order * Encourage increase PO intakes at meal times Follow Up Low Risk: F/U in 7 days Addendum: 01/24/17 at [address] CORRECTIONS: [place]/Adjusted Body Weigh 126% of IBW RD reviewed/approved internal investigator's note. DAT, CEASAR
--- NOTE | 2017-01-24 12:30 | NUR ---
DC planning: DC conservation planner Serena indicates fax to [facility] keeps coming back busy. I communicated this with Lew, intake at [facility], that there is issue with their fax #. Lew checking on this. DOM
--- NOTE | 2017-01-24 15:00 | NUR ---
DC planning: Serena has fax confirmation of 30 pages to [facility] at fax#[phone] but Sylvia at [facility] says they still don't have fax--I have let Don know this as well. I checked back with Lew again at 1525 and he said he found the fax and they are reviewing-questions arose about bipap. I checked with Jj in cardio and he indicates pt only used bipap machine in ER. Serena had put call out to Sylvia at approx 1535 and called her back again later to confirm that pt doesn't require bipap. VEENA RN
--- NOTE | 2017-01-24 16:40 | NUR ---
DC planning: nurse Justus came to our dept to let us know there is a cousin Basia at [phone] who told him she isn't agreeable for pt to go to [facility] due to internet findings--I spoke with pt, he is alert/oriented, brought him pamphlet and explained the facility has 5 star rating by Medicare and that Dr. Gloria could follow his care there. Pt said he didn't have any issues with going there and agreeable to go and that his cousin had just been looking on the internet. I returned to give pt IM letter and gave pt copy as well, and pt changed his mind about going to [facility] because his cousin wants to go look at facility now. I gave pt list of local SNFs with pamphlets and pt choice of vendor form signed-pt would only choose [facility] or [place] at this time. I asked director of community services to put ambulance on will-call in case pt agrees after feedback from his cousin. Per Justus, he hasn't seen this cousin at bedside all day, but had received a call from her this evening disagreeing about [facility]. Dr. Gloria made aware, he called the cousin, who told him she has been here several times to visit pt. Our family caseworker had only spoken with pt, who never mentioned he had a cousin who would have input on placement at SNF--will f/u for further dc planning tomorrow. VEENA FERNANDES
--- NOTE | 2017-01-24 17:33 | NUR ---
Patient refused to leave; Case management is notified.
--- NOTE | 2017-01-24 17:42 | NUR ---
Ambulance Call was placed to [facility], spoke with Francisco, placed on will call. Will follow up as needed.
[2017-01-24] MEDS: MONTELUKAST 10 MG TABLET PO SCH (18:17)
[2017-01-24] MEDS: TAMSULOSIN HCL 0.4 MG CAP PO SCH (18:17)
--- NOTE | 2017-01-24 18:45 | NUR ---
Patient is eating, dinner, tolerated well, no signs of distress noted.
--- NOTE | 2017-01-24 19:40 | NUR ---
initial note pt. received aaox4. no s/s of distress noted. VSS. pt. sating well on 2L NC. denies any pain. bilateral upper arm bruising noted. IV access to right AC saline lock, no redness or swelling at the site. cramer catheter draining to gravity, yumi colored output noted. SCDs in place bilaterally. plan of care discussed with the pt., verbalizes understanding. will continue to monitor for any changes. safety and fall precautions in place. call light in reach, side rails up x3.
--- NOTE | 2017-01-24 22:03 | NUR ---
rounds pt. resting in bed, no s/s of sob or distress noted. pt. denies pain at this time. will continue to monitor for any changes. safety and fall precautions in place. call light in reach.
[2017-01-25 00:30] VITALS: BP 129/59; PULSE 60; RESP 18; TEMP 97.6; O2SAT 95
--- NOTE | 2017-01-25 02:05 | NUR ---
rounds pt. resting in bed with eyes closed. chest rise and fall noted. no s/s of sob or distress, no facial grimacing indicating any pain. will continue to monitor for any changes. safety and fall precautions in place. call light in reach.
[2017-01-25] MEDS: ALBUTEROL SULFATE 0.083% 2.5 MG/3 ML VIAL.NEB INH SCH ×3 (03:00→11:29)
[2017-01-25] MEDS: IPRATROPIUM BROM 0.5 MG/2.5 ML VIAL.NEB (ATROVENT) INH SCH ×3 (03:00→11:29)
--- NOTE | 2017-01-25 04:03 | NUR ---
rounds pt. resting in bed with eyes closed. chest rise and fall noted. no s/s of sob or distress, no facial grimacing indicating any pain. pt. removed SCDs for time being. does not wish to have them on at this time. will continue to monitor for any changes. safety and fall precautions in place. call light in reach.
[2017-01-25 04:25] VITALS: BP 133/76; PULSE 60; RESP 18; TEMP 96.2; O2SAT 98
--- NOTE | 2017-01-25 06:58 | NUR ---
CLOSING NOTE PT. RESTING IN BED. NO S/S OF SOB OR DISTRESS NOTED. PT. DENIES ANY PAIN AT THIS TIME. ALL NECESSARY NEEDS WERE MET. SAFETY AND FALL PRECAUTIONS WERE MAINTAINED. WILL ENDORSE CARE TO AM NURSE. CALL LIGHT IN REACH, BED IN LOWEST POSITION.
[2017-01-25 08:00] VITALS: BP 147/74; PULSE 62; RESP 18; TEMP 97.2; O2SAT 98
--- NOTE | 2017-01-25 08:00 | NUR ---
Patient awake .alert and oriented with occasional productive cough with scanty whitish secretion. Lungs bilaterally Diminished on O@ at 2 liters NC.,O2 Sat -96%.
--- NOTE | 2017-01-25 08:50 | NUR ---
JANETH planning: satish Pastrana and I met w/pt at bedside and requested his decision on which preference of SNFs he had. He said he had only one choice now, [facility]. Victoriano updated choice of vendor form to include his choice of [facility]. janeth Lyons production planner scheduler, will fax snf referral to [facility]. Pt said he would also [facility] himself and interview them. Pt has phone# and brochure for [facility]. VEENA RN
[2017-01-25] MEDS: CEFEPIME 1 GM in D5W 50 ML IV SCH (08:51)
[2017-01-25] MEDS: APIXABAN 2.5 MG TABLET PO SCH (08:51)
[2017-01-25] MEDS: OMEPRAZOLE 20 MG CAPSULE.DR (PriLOSEC) PO SCH (08:52)
[2017-01-25] MEDS: LISINOPRIL 5 MG TABLET PO SCH (08:52)
[2017-01-25] MEDS: CARVEDILOL 12.5 MG TABLET (COREG) PO SCH (08:54)
[2017-01-25] MEDS: FLUTICASONE PROPIONATE 50 mCg/SPRAY 16 GM NS SCH (08:54)
[2017-01-25] MEDS: PREDNISONE 20 MG TABLET PO SCH (08:54)
[2017-01-25] MEDS: DESMOPRESSIN 0.1 MG TAB (DDAVP) PO SCH (08:55)
--- NOTE | 2017-01-25 09:31 | NUR ---
DISCHARGE PLANNING Faxed SNF referral to [facility] [phone] [phone]. Will follow up. Addendum: 01/25/17 at 1045 by Serena Lei DP spoke with Jordan at [facility] patient accepted assigned to room Melvin, RN to report [phone]. bed available anytime. QUANG Pastrana updated patient/family. Called [facility] [phone] spoke with Francisco arranged transport turkey picker 1pm.
--- NOTE | 2017-01-25 10:00 | NUR ---
Ambulated with Physical Therapy. Tolerated activity,no shortness of breath.
--- NOTE | 2017-01-25 10:35 | NUR ---
DC PLANNING: Per pt's request to notify Baisa via her cell phone that the pt. chose [facility]. The pt.already spoke with staff at [facility] and agreed to be transferred there. Basia stated " she did some research about the facility but unable to visit the facility until 3 pm today. CM made her aware that the pt. will be transferred by 1 pm today. She stated " it is okay to transfer the pt. today." The pt. also made aware and agreed .
--- NOTE | 2017-01-25 12:00 | NUR ---
Patient at bedside ,denies any pain or discomfort. Made aware that he will be transferred to [facility] at 1pm and he agreed.
[2017-01-25 12:12] VITALS: BP 147/74; PULSE 62; RESP 20; TEMP 98; O2SAT 96
[2017-01-25 12:53] VITALS: BP 139/77; PULSE 62; RESP 18; TEMP 97.8; O2SAT 99
--- NOTE | 2017-01-25 13:00 | NUR ---
PHYSICAL THERAPY CO-SIGN The Physical Therapy Progress Notes documented by Log Chipper have been reviewed. Reviewed/Co-Signed by: Melonie Velazquez PT Documentation Done by: Jose Henry PTA I concur with the documentation of this HEALTH RECORD TECHNICIAN. Patient will be going to SNF placement later today. Addendum: 01/26/17 at 0846 by Melonie Velazquez PT Amended: Links added.
--- NOTE | 2017-01-25 13:00 | NUR ---
Report given to nursing supervisor byproducts at [facility].
--- NOTE | 2017-01-25 13:18 | NUR ---
Discharge DC patient to [facility] via ambulance. patient awake ,alert and oriented ,denies any pain. Saline lock on the left forearm patent and cramer cath kept .ID band removed. All belongings sent with patient .
== END 2017-01-25 13:25 | DRG 871 ==
LOC: SED 17:30 → SIC 19:09 → STU 20:12 → SMU 01-23 17:17
PROVIDERS: ADMIT Internal Medicine; ATTEND Internal Medicine
PROC: 5A09357 Assistance with Respiratory Ventilation, Less than 24 Consecutive Hours, Continuous Positive Airway Pressure (ICD-10-PCS; principal; 2017-01-18)
DX: A41.9 Sepsis, unspecified organism (principal); J96.00 Acute respiratory failure, unspecified whether with hypoxia or hypercapnia; J15.9 Unspecified bacterial pneumonia; I42.9 Cardiomyopathy, unspecified; C91.10 Chronic lymphocytic leukemia of B-cell type not having achieved remission; J44.0 Chronic obstructive pulmonary disease with (acute) lower respiratory infection; J44.1 Chronic obstructive pulmonary disease with (acute) exacerbation; J98.01 Acute bronchospasm; I11.0 Hypertensive heart disease with heart failure; I50.9 Heart failure, unspecified; I48.2 Chronic atrial fibrillation; I25.10 Atherosclerotic heart disease of native coronary artery without angina pectoris; D69.6 Thrombocytopenia, unspecified; J32.9 Chronic sinusitis, unspecified; R33.9 Retention of urine, unspecified; Z82.49 Family history of ischemic heart disease and other diseases of the circulatory system; Z95.1 Presence of aortocoronary bypass graft; Z87.891 Personal history of nicotine dependence; Z95.2 Presence of prosthetic heart valve; Z95.810 Presence of automatic (implantable) cardiac defibrillator
CPT/HCPCS: 36415; 36600; 71010; 80048; 80053; 81000-TC; 82550-TC; 82803-TC; 83605; 83880; 84484; 85025; 85610-TC; 85730-TC; 86480; 86710; 86738; 87040-TC; 87081; 87205-TC; 93005; 93306; 94640; 94660; 94760; 96365; 96375; 97110-GP; 97116-GP; 97530-GP; 99285; J0692; J1940; J1956; J2930; J3370; J7040; J7060; J7512

== ENCOUNTER 2017-02-16 18:06 | Inpatient (IN) | payer OTHER, MEDICARE ==
[~2017-02-16] VITALS: Ht 188 cm; Wt 93.0 kg
[2017-02-16 18:06] VITALS: BP 95/46; PULSE 123; RESP 28; TEMP 98.2; O2SAT 96
[~2017-02-16 18:06] MED LIST: ACET-1010 PO; APIX5TAB PO; CORCR40 PO; DDA.1 PO; IBRU140C PO; LISI2.5T48 PO; OMEP20CA10 PO
--- NOTE | 2017-02-16 18:06 | NUR ---
Patient to ER bed 5 to gown for evaluation. Side rails up. Report given to Liz FERNANDES.
--- NOTE | 2017-02-16 18:08 | NUR ---
Patient brought to ER by BLS from [facility] sent by MD Gloria for low H/H. Patient was recently admitted to [facility] about 3 weeks ago and had a cystoscopy done my MD Dc. Patient states since them gross hematuria and prior procedure he was unable to urinate. Patient C/O generalized weakness, denies N/V, denies pain, skin pale, unlabored breathing, tachycardia 130-140's, has pacemaker with defibrilator.
--- NOTE | 2017-02-16 18:10 | NUR ---
ER MD Barron at bedside for evaluation
--- NOTE | 2017-02-16 18:17 | NUR ---
Patient arrived with Lancaster placed by SD at last admission 3 weeks ago. Patient states that MD Dc performed a cystoscopy for bladder and prostate evaluation. Patient has Hx of BPH and prior was unable to urinate. At this time the urine has gross hematuria. Due to the existing BPH and recent procedure, to avoid further trauma to the urethra, Lancaster will not be changed per protocol. ER MD Barron aware.
--- NOTE | 2017-02-16 18:20 | NUR ---
# 18 gauge angiocath placed to RIGHT FOREARM. Use of asceptic technique. Opsite placed over site. Blood return noted. Blood for lab drawn from site including lactic & blood cultures and pink top. Flushed with 10 cc of normal saline. No evidence of infiltration noted. Patient tolerated well.
[2017-02-16 18:39] LABS: BASOPHILS # (AUTO) 0.1 K/uL (0.0-0.2); EOSINOPHILS % (AUTO) 0.1 % (0.0-4.0); LYMPHOCYTES # (AUTO) 2.2 K/uL (1.0-5.5); MONOCYTES # (AUTO) 0.7 K/uL (0.0-1.0); MONOCYTES % (AUTO) 6.4 % (1.7-9.3); NEUTROPHILS # (AUTO) 7.5 K/uL (1.8-7.7); RED BLOOD CELL COUNT(AUTO) 2.42 MIL/uL (4.2-6.2); WHITE BLOOD COUNT (AUTO) 10.5 K/uL (4.8-10.8)
[2017-02-16 18:43] LABS: BASOPHILS % (AUTO) 0.9 % (0.0-2.0); MEAN CORPUSCULAR HEMOGLOBIN 30 pg (27-31); MEAN CORPUSCULAR HGB CONC 34 % (32-36); MEAN CORPUSCULAR VOLUME 87 fL (79.0-98.0); NEUTROPHILS % (AUTO) 71.6 % (40.0-70.0); RED CELL DISTRIBUTION WIDTH 13.8 % (9.0-15.0)
[2017-02-16 18:52] LABS: PLATELET COUNT (AUTO) 89 K/uL (130-430)
[2017-02-16 18:55] LABS: ANION GAP 5 (5-15); CALCIUM 7.9 mg/dL (8.4-11.0); CHLORIDE 98 mmol/L (98-107); CREATININE 1.37 mg/dL (0.55-1.30); GLUCOSE 143 mg/dL (70-99); HEMOGLOBIN 7.2 g/dL (14.0-18.0); POTASSIUM 5.2 mmol/L (3.5-5.1); SODIUM SERUM 129 mmol/L (136-145); UREA NITROGEN, BLOOD 30 mg/dL (8-21)
[2017-02-16 18:56] LABS: BILIRUBIN,URINE NEGATIVE (NEGATIVE); BLOOD, URINE 3+ (NEGATIVE); CLARITY/URINE CLOUDY (CLEAR); COLOR,URINE RED (YELLOW); GLUCOSE,URINE NEGATIVE (NEGATIVE); KETONES,URINE NEGATIVE (NEGATIVE); LEUKOCYTE ESTERASE ,URINE 1+ (NEGATIVE); NITRITE, URINE NEGATIVE (NEGATIVE); PH,URINE 6.5 (5.0-8.0); PROTEIN URINE 3+ (NEGATIVE); UROBILINOGEN,URINE 0.2 (0.2-1.0)
[2017-02-16] MEDS ORDERED: FLUT16SP16 NS (18:57)
[2017-02-16] MEDS ORDERED: PRED20TA PO (18:57)
[2017-02-16] MEDS ORDERED: DULR10 RC (18:57)
[2017-02-16] MEDS ORDERED: ACET325T53 PO (18:57)
[2017-02-16] MEDS ORDERED: IBRU140C PO ×2 (18:57→21:00)
[2017-02-16] MEDS ORDERED: TAMS-11 PO (18:57)
[2017-02-16] MEDS ORDERED: MAGN400O4 PO (18:57)
[2017-02-16] MEDS ORDERED: FERR-57 PO (18:57)
[2017-02-16] MEDS ORDERED: MONT10TA25 PO (18:57)
[2017-02-16] MEDS ORDERED: NA P118E RC (18:57)
[2017-02-16] MEDS ORDERED: TRAM50TA92 PO (18:57)
--- NOTE | 2017-02-16 18:57 | NUR ---
Medication reconciliation completed based upon medication list from SN[facility].
[2017-02-16 18:59] LABS: ALANINE AMINOTRANSFERASE 24 U/L (12-78); ALBUMIN 2.4 g/dL (3.4-4.8); ASPARTATE AMINOTRANSFERASE 15 U/L (10-37); TOTAL BILIRUBIN 0.3 mg/dL (0.0-1.0); TOTAL PROTEIN, SERUM 5.1 g/dL (6.4-8.3)
[2017-02-16 19:00] LABS: BACTERIA,URINE FEW /HPF (None Seen); MUCUS,URINE None Seen /LPF (None Seen); RBC,URINE >100 /HPF (0-3)
[2017-02-16 19:03] LABS: INR 1.1 (0.80-1.20); PROTHROMBIN TIME 11.5 SECS (9.5-12.5)
[2017-02-16] MEDS ORDERED: cefTRIAXone 1 GM IVPB PREMIX 50 ML IV ONE (19:30)
[2017-02-16] MEDS ORDERED: NS 500 ML IV ONE ×2 (19:45→21:00)
--- NOTE | 2017-02-16 19:51 | NUR ---
Patient will be admitted to care of DR ALFARO. Admitted to TELE IN unit. Will go to room 135. Belongings list completed. Summary report printed. Report given to RN.
--- NOTE | 2017-02-16 19:58 | NUR ---
Transfer to [facility] via ACLS protocol. Licensed nurse present. IV present no signs or symptoms of infiltration.
[2017-02-16 20:00] VITALS: BP 102/60; PULSE 70; RESP 18; TEMP 97.6; O2SAT 99
--- NOTE | 2017-02-16 20:15 | NUR ---
ADMISSION NOTES: Received patient from ER with diagnosis of UTI, ANEMIA. Initial Plan of Care discussed-patient verbalized understanding. Family at bedside. Oriented to room, call light, pain management and safety.
--- NOTE | 2017-02-16 20:15 | NUR ---
recieved pt.via er-dept.nguyen vasquez;rn yecenian present.pt.present admit dx:anemia;2 recieve 2-units rbc's blood trx. pt.preswents cramer catheter;hematuria manifested:gross: apprised of the hematuria.pt.presents hx:cll cancer po meds present 2 b sent 2 rx.v/s assessed.no c/o pain,nausea,nor sob.
[2017-02-16 20:20] VITALS: BP 102/60; PULSE 70; RESP 18; TEMP 97.6; O2SAT 99
[2017-02-16] MEDS ORDERED: POTASSIUM CHLORIDE 10 MEQ in NACL 0.9% 1,000 ML IV SCH (21:00)
--- NOTE | 2017-02-16 21:00 | NUR ---
pt.assessed.food snacks provided 2 pt.cramer catheter flushed:blood clots present.belongings accounted 4. ruiz:$65.00 @bedside w/ pt.accounted 4 w/ pt's attesting 2 amount & denominations.
--- NOTE | 2017-02-16 21:13 | NUR ---
Consult Called Reason for consultation: Anemia, CLL was consult called: yes Person who was notified: [place] Consulting Physician: JENNIFER HUTCHISON MD Order by: ELLEN ALFARO MD
[2017-02-16 21:30] VITALS: BP 102/60; PULSE 70; RESP 18; TEMP 97.6; O2SAT 99
[2017-02-16] MEDS ORDERED: BISACODYL 10 MG/SUPPOSITORY RC PRN (21:30)
[2017-02-16] MEDS ORDERED: ACETAMINOPHEN 500 MG TABLET PO SCH (21:30)
[2017-02-16] MEDS ORDERED: MILK OF MAGNESIA 30 ML UDC PO PRN (21:30)
[2017-02-16] MEDS ORDERED: NA PHOS,M-B/NA PHOS,DI-BA 118 ML (FLEET ENEMA) RC PRN (21:30)
[2017-02-16] MEDS ORDERED: ACETAMINOPHEN 325 MG TABLET PO PRN (21:30)
--- NOTE | 2017-02-16 21:35 | NUR ---
Consult Called Reason for Consultation: Hematuria Person who was notified: Hillary Consulting Physician: JERALD WAN Day Light Relief Operator Speciality: Nephrology Order by: Dr. Gloria
[2017-02-16 21:59] LABS: ANION GAP 4 (5-15); CALCIUM 7.7 mg/dL (8.4-11.0); CHLORIDE 100 mmol/L (98-107); CREATININE 1.22 mg/dL (0.55-1.30); GLUCOSE 139 mg/dL (70-99); POTASSIUM 5.4 mmol/L (3.5-5.1); SODIUM SERUM 131 mmol/L (136-145); UREA NITROGEN, BLOOD 29 mg/dL (8-21)
--- NOTE | 2017-02-16 22:00 | NUR ---
pt.assessed.pt.repositioned.juice provided. Addendum: 02/17/17 at 0549 by Gianni Diaz RN cramer catheter flushed.clots manifested.
[2017-02-17] VITALS (8 sets, daily range): BP systolic 101–132; BP diastolic 53–72; PULSE 60–83; RESP 17–20; TEMP 96.6–98; O2SAT 94–100; Ht 188 cm; Wt 93.0 kg
--- NOTE | 2017-02-17 | NUR ---
pt.assessed.pt.repositioned.v/s assessed.no c/o pain,nauseas.cramer catheter flushed.clots manifested.
[2017-02-17] MEDS: NACL 0.9% 1,000 ML IV SCH ×2 (00:58→07:30)
--- NOTE | 2017-02-17 02:00 | NUR ---
pt.assessed.pt.repositioned.cramer catheter flushed:clots manifested.no c/o pain. Addendum: 02/17/17 at 0554 by Gianni Diaz RN iv fluids initiated via peripheral access;rt.forearm.
--- NOTE | 2017-02-17 02:30 | NUR ---
blood trx initiated:the 1st of 2 units;via rt.forearm access.nguyen vasquez;rn double checked the pts' info/data. v/s assessed.
--- NOTE | 2017-02-17 03:00 | NUR ---
pt.assessed.blood tx assessed.v/s assessed.no c/o pain,nausea.juice provided 2 the pt.
--- NOTE | 2017-02-17 04:00 | NUR ---
pt.assessed.pt.repositioned.blood trx.cramer catheter flushed;clots manifested.no c/o pain.
--- NOTE | 2017-02-17 05:30 | NUR ---
blood trx completed:unit#1 0f 2.no adverse reaction manifested.call light w/in pt's reach.no distress/discomfort manifested.pt.asleep. Addendum: 02/18/17 at 1827 by Gianni Diaz RN noted time [place] record:@[id number].
--- NOTE | 2017-02-17 05:58 | NUR ---
pt.assessed.blood trx transfusing nearing completion.pt.repositioned.cramer catheter flushed.clots manifested.
[2017-02-17 07:22] LABS: BASOPHILS % (AUTO) 0.2 % (0.0-2.0); EOSINOPHILS % (AUTO) 0.1 % (0.0-4.0); HEMOGLOBIN 7.3 g/dL (14.0-18.0); LYMPHOCYTES % (AUTO) 29.9 % (20.5-51.5); MEAN CORPUSCULAR HEMOGLOBIN 30 pg (27-31); MEAN CORPUSCULAR HGB CONC 34 % (32-36); MEAN CORPUSCULAR VOLUME 87 fL (79.0-98.0); MONOCYTES # (AUTO) 0.8 K/uL (0.0-1.0); MONOCYTES % (AUTO) 11.3 % (1.7-9.3); NEUTROPHILS # (AUTO) 3.9 K/uL (1.8-7.7); NEUTROPHILS % (AUTO) 58.5 % (40.0-70.0); RED BLOOD CELL COUNT(AUTO) 2.45 MIL/uL (4.2-6.2); RED CELL DISTRIBUTION WIDTH 14.2 % (9.0-15.0); WHITE BLOOD COUNT (AUTO) 6.7 K/uL (4.8-10.8)
[2017-02-17 07:27] LABS: INR 1.1 (0.80-1.20); PROTHROMBIN TIME 11.5 SECS (9.5-12.5)
[2017-02-17 07:34] LABS: ALANINE AMINOTRANSFERASE 22 U/L (12-78); ANION GAP 4 (5-15); ASPARTATE AMINOTRANSFERASE 13 U/L (10-37); CALCIUM 7.7 mg/dL (8.4-11.0); CHLORIDE 102 mmol/L (98-107); GLUCOSE 110 mg/dL (70-99); SODIUM SERUM 132 mmol/L (136-145); TOTAL BILIRUBIN 0.3 mg/dL (0.0-1.0); TOTAL PROTEIN, SERUM 4.5 g/dL (6.4-8.3); UREA NITROGEN, BLOOD 25 mg/dL (8-21)
--- NOTE | 2017-02-17 07:40 | NUR ---
Received Critical Labs for Hgb / HCT. - Will have blood redrawn because patient was having blood transfusion at the time of the draw. Will redraw an hour after 2nd unit of PRBC is complete.
[2017-02-17 07:44] LABS: HEMATOCRIT 21.4 % (36-54)
[2017-02-17] MEDS ORDERED: CARVEDILOL PHOSPHATE 10 MG CPMP.24HR ( COREG CR) PO SCH (08:00)
--- NOTE | 2017-02-17 08:01 | NUR ---
OPENING NOTES PT SITTING UP IN BED WITH HIS FEET ON THE FLOOR, EATING BREAKFAST, AND IS ABLE TO FEED HIMSELF. STATES HE IS COMFORTABLE, PAIN 0/10. VS STABLE. BEGAN INFUSING PRBC #2 OF 2 AT 0800 AND WILL REMAIN WITH PT FOR 15 MINUTES
--- NOTE | 2017-02-17 08:15 | NUR ---
PT ASSESSED FOR BLOOD TRANSFUSION REACTION VS STABLE, NO COMPLAINTS OF PAIN OR NAUSEA. NO S/S OF ADVERSE REACTION
[2017-02-17 08:18] LABS: PLATELET COUNT (AUTO) 62 K/uL (130-430)
--- NOTE | 2017-02-17 09:03 | NUR ---
Nutrition Update Steve Scale 15 noted. Pt admitted for UTI, anemia. Diet: cardiac BMI: 26.4 kg/m2 RD to follow per nutrition care standards.
[2017-02-17] MEDS: PREDNISONE 20 MG TABLET PO SCH ×2 (10:07→20:54)
[2017-02-17] MEDS: OMEPRAZOLE 20 MG CAPSULE.DR (PriLOSEC) PO SCH (10:07)
[2017-02-17] MEDS: FERROUS SULFATE 325 MG TABLET.DR PO SCH ×3 (10:07→20:54)
[2017-02-17] MEDS: FLUTICASONE PROPIONATE 50 mCg/SPRAY 16 GM NS SCH ×2 (10:07→20:55)
[2017-02-17] MEDS: DESMOPRESSIN 0.1 MG TAB (DDAVP) PO SCH (10:25)
[2017-02-17] MEDS ORDERED: AMINOCAPROIC ACID 500 MG TABLET PO ONE ×2 (10:45)
--- NOTE | 2017-02-17 10:45 | NUR ---
DIEZ CHANGE DR BARAJAS'S VENDOR MANAGEMENT ASSOCIATE, PHYSICIAN'S VENDOR MANAGEMENT ASSOCIATE HANS, IS AT BEDSIDE PERFORMING THE BLADDER IRRIGATION. HANS REMOVED THE CURRENT DIEZ AND INSERTED A 22 FRINGE 3-WAY DIEZ SO THAT CONTINUOUS IRRIGATION CAN BE ESTABLISHED. PT TOLERATED PROCEDURE WELL
[2017-02-17] MEDS ORDERED: AMINOCAPROIC ACID IV ONE ×2 (11:45)
[2017-02-17] MEDS ORDERED: NS IV SCH (11:45)
[2017-02-17] MEDS ORDERED: AMINOCAPROIC ACID IV SCH (11:45)
[2017-02-17] MEDS ORDERED: NS IV ONE ×2 (11:45)
[2017-02-17] MEDS: cefTRIAXone 1 GM in D5W 50 ML IV SCH (11:54)
[2017-02-17] MEDS ORDERED: CARVEDILOL 12.5 MG TABLET (COREG) PO ONE (12:00)
--- NOTE | 2017-02-17 12:33 | NUR ---
ROUNDS PT SITTING UP IN BED, EATING LUNCH. DIEZ IS SECURED AND PT DOES NOT COMPLAIN OF PAIN. VS STABLE, BED IN LOWEST POSITION, BED ALARM SET. PT EDUCATED ON REASON FOR BLADDER IRRIGATION AND USE OF HIS CALL LIGHT.
[2017-02-17 12:41] LABS: BASOPHILS % (AUTO) 0.2 % (0.0-2.0); EOSINOPHILS % (AUTO) 0.5 % (0.0-4.0); HEMATOCRIT 25.3 % (36-54); HEMOGLOBIN 8.4 g/dL (14.0-18.0); LYMPHOCYTES # (AUTO) 2.1 K/uL (1.0-5.5); LYMPHOCYTES % (AUTO) 27.4 % (20.5-51.5); MEAN CORPUSCULAR HEMOGLOBIN 29 pg (27-31); MEAN CORPUSCULAR HGB CONC 33 % (32-36); MEAN CORPUSCULAR VOLUME 88 fL (79.0-98.0); MONOCYTES # (AUTO) 0.9 K/uL (0.0-1.0); MONOCYTES % (AUTO) 12.3 % (1.7-9.3); NEUTROPHILS # (AUTO) 4.7 K/uL (1.8-7.7); NEUTROPHILS % (AUTO) 59.6 % (40.0-70.0); RED BLOOD CELL COUNT(AUTO) 2.89 MIL/uL (4.2-6.2); RED CELL DISTRIBUTION WIDTH 13.9 % (9.0-15.0); WHITE BLOOD COUNT (AUTO) 7.7 K/uL (4.8-10.8)
[2017-02-17 12:56] LABS: PLATELET COUNT (AUTO) 78 K/uL (130-430)
--- NOTE | 2017-02-17 13:40 | NUR ---
ROUNDS/URINE SAMPLE COLLECTED PT IN BED, TALKING WITH A FRIEND WHO IS AT BEDSIDE. PT STATED HE IS COMFORTABLE AND FREE OF PAIN. BED IN LOWEST POSITION AND CALL LIGHT IS WITHIN REACH
[2017-02-17] MEDS ORDERED: cefTRIAXone 1 GM IVPB PREMIX 50 ML IV SCH (16:00)
--- NOTE | 2017-02-17 16:00 | NUR ---
ROUNDS ND IS RESTING IN BED AND REQUESTED A YOGURT A SNACK (I ORDERED IT FROM DIETARY). I HUNG THE SECOND 3-LITER BAG OF SALINE TO MAINTAIN CONTINUOUS BLADDER IRRIGATION ORDERED. BED IN LOWEST POSITION AND CALL LIGHT IS WITHIN REACH.
--- NOTE | 2017-02-17 17:19 | NUR ---
paged dr Castro [facility] Imbruvica 140mg PO 3 caps daily at bedtime
[2017-02-17] MEDS: MONTELUKAST 10 MG TABLET PO SCH (18:26)
[2017-02-17] MEDS: CARVEDILOL 12.5 MG TABLET (COREG) PO SCH (18:27)
--- NOTE | 2017-02-17 18:35 | NUR ---
CLOSING NOTES PT FINISHED DINNER AND IS IN BED WATCHING TV. PT IS IN GOOD SPIRITS AND IS NOT COMPLAINING OF PAIN, ASIDE FROM A DISCOMFORT AT THE MEATUS DUE TO THE DIEZ. REPOSITIONED FOR COMFORT. SET THE BED TO THE LOWEST POSITION AND ENSURED CALL LIGHT IS WITHIN REACH
--- NOTE | 2017-02-17 19:50 | NUR ---
NOTES; RECEIVED PT IN BED. A/A/O X4. NO ACUTE DISTRESS NOTED. 3WAY DIEZ CATHETER WITH CONTINUOUS BLADDER IRRIGATION ONGOING. OUT PUT IN DIEZ BAG IS BRIGHT RED. WILL MONITOR PATENCY OF DIEZ CATHETER. DIEZ SECUREMENT IN PLACE. IV ON THE RT FOREARM WITH ORDERED IVF INFUSING WELL. NO SIGNS OR SYMPTOMS OF INFECTION NOTED ON IV SITE. PT DENIES ANY PAIN AT THIS TIME. INSTRUCTED PT ON THE USE OF CALL LIGHT. PT VERBALIZED UNDERSTANDING. BED LOCKED AND IN LOW POSITION, SIDE RAILS UP X3, BED ALARM ON. CALL LIGHT WITHIN REACH. WILL CONTINUE TO MONITOR.
[2017-02-17] MEDS: TAMSULOSIN HCL 0.4 MG CAP PO SCH (20:54)
--- NOTE | 2017-02-17 20:56 | NUR ---
NOTES; SCHEDULED PO MEDICATION ADMINISTERED. PT TOLERATED MEDS WELL.
--- NOTE | 2017-02-17 21:00 | NUR ---
NOTES; DIEZ CATHETER IS NOT DRAINING WELL. OUT PUT IN BAG APPEAR TO BE RED BLOOD. MANUAL DIEZ CATHETER IRRIGATED. NOTED BIG CLOTS OF BLOOD. IRRIGATION OPEN TO FAST FLOW. WILL CONTINUE TO MONITOR.
--- NOTE | 2017-02-17 22:00 | NUR ---
NOTES; OUT PUT IN DIEZ BAG COLOR CHANGED TO PINK. CONTINUOUS BLADDER IRRIGATION ONGOING. PT DENIES ANY PAIN AT THIS TIME. SAFETY MEASURES IN PROGRESS. WILL CONTINUE TO MONITOR.
--- NOTE | 2017-02-17 23:00 | NUR ---
NOTES; INCONTINENT OF LARGE SOFT GREEN BM. TOTAL BED BATH GIVEN, LINEN CHANGED. DIEZ CATHETER WITH ONGOING BLADDER IRRIGATION PATENT. URIN OUT PUT IS PINK. PT DENIES ANY PAIN AT THIS TIME. SAFETY MEASURES IN PROGRESS. WILL CONTINUE TO MONITOR.
--- NOTE | 2017-02-18 | NUR ---
NOTES; CONTINUOUS BLADDER IRRIGATION ONGOING. URINE IS PINK. PT DENIES ANY PAIN AT THIS TIME. SAFETY MEASURES IN PROGRESS.
[2017-02-18] MEDS: NACL 0.9% 1,000 ML IV SCH ×3 (00:01→20:27)
--- NOTE | 2017-02-18 02:00 | NUR ---
NOTES; CONTINUOUS BLADDER IRRIGATION ONGOING. URINE IS PINK. PT DENIES ANY PAIN AT THIS TIME. SAFETY MEASURES IN PROGRESS.
--- NOTE | 2017-02-18 03:00 | NUR ---
NOTES; CONTINUOUS BLADDER IRRIGATION ONGOING. URINE IS PINK. PT DENIES ANY PAIN AT THIS TIME. SAFETY MEASURES IN PROGRESS.
[2017-02-18 03:26] VITALS: BP 118/69; PULSE 79; RESP 18; TEMP 97.2; O2SAT 98
--- NOTE | 2017-02-18 04:58 | NUR ---
NOTES; CONTINUOUS BLADDER IRRIGATION ONGOING. URINE IS PINK. PT DENIES ANY PAIN AT THIS TIME. SAFETY MEASURES IN PROGRESS.
[2017-02-18 06:48] LABS: EOSINOPHILS % (AUTO) 0.2 % (0.0-4.0); MONOCYTES # (AUTO) 0.4 K/uL (0.0-1.0); NEUTROPHILS # (AUTO) 3.3 K/uL (1.8-7.7)
[2017-02-18 06:57] LABS: BASOPHILS % (AUTO) 0.1 % (0.0-2.0); HEMATOCRIT 22.4 % (36-54); HEMOGLOBIN 7.6 g/dL (14.0-18.0); LYMPHOCYTES # (AUTO) 2.1 K/uL (1.0-5.5); LYMPHOCYTES % (AUTO) 35.6 % (20.5-51.5); MEAN CORPUSCULAR HEMOGLOBIN 30 pg (27-31); MEAN CORPUSCULAR HGB CONC 34 % (32-36); MEAN CORPUSCULAR VOLUME 88 fL (79.0-98.0); MONOCYTES % (AUTO) 7.3 % (1.7-9.3); NEUTROPHILS % (AUTO) 56.8 % (40.0-70.0); RED BLOOD CELL COUNT(AUTO) 2.55 MIL/uL (4.2-6.2); RED CELL DISTRIBUTION WIDTH 13.9 % (9.0-15.0); WHITE BLOOD COUNT (AUTO) 5.8 K/uL (4.8-10.8)
[2017-02-18 06:59] LABS: PLATELET COUNT (AUTO) 60 K/uL (130-430)
--- NOTE | 2017-02-18 07:02 | NUR ---
NOTES; RESTING QUIETLY, EASILY AROUSED. NO ACUTE DISTRESS NOTED. CONTINUOUS BLADDER IRRIGATION FLOWING WELL, DIEZ CATHETER IS PATENT. NO CLOTS NOTED. URINE. OUT PUT IS PINK. IVF INFUSING WELL. PT DENIES ANY PAIN AT THIS TIME. ALL NEEDS ATTENDED. SAFETY MEASURES IN PROGRESS.
[2017-02-18 07:03] LABS: ANION GAP 3 (5-15); CALCIUM 7.7 mg/dL (8.4-11.0); CHLORIDE 104 mmol/L (98-107); CREATININE 0.97 mg/dL (0.55-1.30); GLUCOSE 107 mg/dL (70-99); SODIUM SERUM 133 mmol/L (136-145); UREA NITROGEN, BLOOD 21 mg/dL (8-21)
[2017-02-18 07:53] VITALS: BP 101/63; PULSE 60; RESP 17; TEMP 96.6; O2SAT 100
--- NOTE | 2017-02-18 07:55 | NUR ---
OPENING NOTE PT SITTING UP IN BED, EATING BREAKFAST. PT STATED HE SLEPT WELL AND IS IN NO DISCOMFORT.
[2017-02-18 08:05] LABS: PROTHROMBIN TIME 11.1 SECS (9.5-12.5)
--- NOTE | 2017-02-18 08:09 | NUR ---
PRBC ORDERED PT HBG IS 7.6. PER DR HUTCHISON'S ORDER, PREPARING TO TRANSFUSE 2 UNITS OF PRBC.
[2017-02-18] MEDS: FLUTICASONE PROPIONATE 50 mCg/SPRAY 16 GM NS SCH ×2 (09:00→20:26)
[2017-02-18] MEDS: DESMOPRESSIN 0.1 MG TAB (DDAVP) PO SCH (09:07)
[2017-02-18] MEDS: PREDNISONE 20 MG TABLET PO SCH ×2 (09:07→20:26)
[2017-02-18] MEDS: OMEPRAZOLE 20 MG CAPSULE.DR (PriLOSEC) PO SCH (09:08)
[2017-02-18] MEDS: FERROUS SULFATE 325 MG TABLET.DR PO SCH ×3 (09:08→20:25)
[2017-02-18] MEDS: CARVEDILOL 12.5 MG TABLET (COREG) PO SCH ×2 (09:08→17:04)
--- NOTE | 2017-02-18 10:00 | NUR ---
NOTES PT RESTING IN BED, COMPLAINES OF URETHRA PAIN. SLOWED BLADDER IRRIGATION SLIGHTLY, EMPTIED DIEZ BAG, AND PROVIDED PRN ANALGESIC. WILL CONTINUE TO MONITOR
[2017-02-18] MEDS: traMADol HCL HCL 50 MG TABLET (ULTRAM) PO PRN (10:17)
--- NOTE | 2017-02-18 12:00 | NUR ---
ROCEPHIN DELAYED DUE TO BLOOD TRANSFUSION
[2017-02-18 12:08] VITALS: BP 120/62; PULSE 79; RESP 16; TEMP 97.6; O2SAT 99
--- NOTE | 2017-02-18 12:24 | NUR ---
PRBC TRANSFUSION STARTED VS STABLE, REMAINING WITH PT FOR THE FIRST 15 MINUTES TO MONITOR FOR S/S OF TRANSFUSION REACTION
--- NOTE | 2017-02-18 12:50 | NUR ---
BT 15-MINUTE CHECK PT EDUCATED ON S/S OF TRANSFUSION REACTION. NOT SIGN OF REACTION OR DISTRESS, VE STABLE AND PT TOLERATING WELL. BED IN LOWEST POSITION AND CALL LIGHT WITHIN REACH
--- NOTE | 2017-02-18 14:00 | NUR ---
Patient resting, tolerating CBI well. Pt complain of occasional spasm, but overall doing well. Will continue to monitor.
[2017-02-18] MEDS: cefTRIAXone 1 GM in D5W 50 ML IV SCH (15:06)
--- NOTE | 2017-02-18 16:00 | NUR ---
ROUNDS PT STILL SLEEPING. BED IN LOWEST POSITION AND CALL LIGHT WITHIN REACH
[2017-02-18 16:18] VITALS: BP 102/46; PULSE 61; RESP 16; TEMP 97.6; O2SAT 98
[2017-02-18] MEDS: MONTELUKAST 10 MG TABLET PO SCH (17:02)
--- NOTE | 2017-02-18 17:17 | NUR ---
BT INITIATION: Consent signed per pt agreeing to administration of blood. Blood has been type and crossmatched. Blood sent from blood bank. Information on unit of blood checked against patient wristband at bedside by two nurses. All information matches. Patient informed of potential complications associated with blood transfusion. Informed of possible transfusion reaction symptoms. Aware of need to notify nurse at once of itching, shortness of breath, flushing, feeling of impending doom, or other symptoms not previously present. Vital signs taken within 5 minutes prior to initiation of transfusion and are stable. RN will remain with patient for first 15 minutes of transfusion at which time vital signs will be re-assessed.
--- NOTE | 2017-02-18 19:00 | NUR ---
CLOSING NOTES PT IN BED, RESTING, PRBC STILL TRANSFUSING. PT STATES HE IS NOT IN PAIN AND EXHIBITS NO S/S OF BLOOD TRANSFUSE REACTION. BED IN LOWEST POSITION AND CALL LIGHT WITHIN REACH
--- NOTE | 2017-02-18 19:30 | NUR ---
PM ASSESSMENT PT. A/OX4, VITAL SIGNS STABLE, NO DISTRESS NOTED, DENIES PAIN, NOTED WITH CONTINUOUS BLADDER IRRIGATION, FLUSHED BY AM NURSE DURING CHANGE OF SHIFT, CBI NOTED WITH VERY SLOW DRIP AT THIS TIME, WILL REATTEMPT TO FLUSH AGAIN LATER, 400 CC RED DRAINAGE EMPTIED FROM DIEZ, UPDATED WITH PLAN OF CARE, ENCOURAGED PT. TO USE CALL LIGHT FOR ASSISTANCE, CALL LIGHT WITHIN REACH, WILL CONTINUE TO MONITOR.
--- NOTE | 2017-02-18 19:55 | NUR ---
BLOOD TRANSFUSION COMPLETE BLOOD TRANSFUSION COMPLETE, VITAL SIGNS STABLE, NO S/S OF BLOOD TRANSFUSION REACTION NOTED, PT. TOLERATED WELL. WILL NOTIFY LAB FOR H/H DRAW AFTER 1 HOUR.
[2017-02-18] MEDS: TAMSULOSIN HCL 0.4 MG CAP PO SCH (20:25)
[2017-02-18] MEDS: MUPIROCIN 2% TOPICAL OINTMENT 22 GM TP SCH (20:26)
--- NOTE | 2017-02-18 21:30 | NUR ---
RN ROUNDS DIEZ DRAINING WITH DARK RED DRAINAGE, DRIP CHAMBER ON CBI DRIPPING VERY SLOW, WILL FLUSH CBI WITH 50 ML NS, VITAL SIGNS STABLE, PT. DENIES PAIN AT THIS TIME.
[2017-02-18 22:06] LABS: HEMATOCRIT 27.1 % (36-54)
--- NOTE | 2017-02-18 23:37 | NUR ---
RN ROUNDS DIEZ DRAINING PINK DRAINAGE AT THIS TIME, CBI DRIPPING CONTINUOUSLY, PT. VITAL SIGNS STABLE, DENIES PAIN AT THIS TIME, WILL CONTINUE TO MONITOR.
[2017-02-18 23:48] VITALS: BP 136/68; PULSE 62; RESP 18; TEMP 97.2; O2SAT 99
--- NOTE | 2017-02-19 01:32 | NUR ---
RN ROUNDS DIEZ DRAINING PINK DRAINAGE AT THIS TIME, CBI DRIPPING CONTINUOUSLY, PT. VITAL SIGNS STABLE, DENIES PAIN AT THIS TIME, WILL CONTINUE TO MONITOR.
--- NOTE | 2017-02-19 02:00 | NUR ---
RN ROUNDS DIEZ CATHETER DRAINING WELL WITH RED DRAINAGE AND BLOOD CLOTS, VITAL SIGNS STABLE, DENIES PAIN AT THIS TIME, WILL CONTINUE TO MONITOR.
--- NOTE | 2017-02-19 04:00 | NUR ---
RN ROUNDS DIEZ DRAINING PINK DRAINAGE AT THIS TIME, CBI DRIPPING CONTINUOUSLY, PT. VITAL SIGNS STABLE, DENIES PAIN AT THIS TIME, WILL CONTINUE TO MONITOR.
[2017-02-19 04:26] VITALS: BP 140/86; PULSE 88; RESP 18; TEMP 97.9; O2SAT 99
--- NOTE | 2017-02-19 06:18 | NUR ---
CLOSING NOTES DIEZ DRAINING PINK DRAINAGE AT THIS TIME, CBI DRIPPING CONTINUOUSLY, PT. VITAL SIGNS STABLE, DENIES PAIN AT THIS TIME, WILL CONTINUE TO MONITOR. ALL ANTICIPATED NEEDS MET, KEPT COMFORTABLE.
[2017-02-19 07:06] LABS: PROTHROMBIN TIME 11.3 SECS (9.5-12.5)
[2017-02-19 07:10] LABS: BASOPHILS # (AUTO) 0.1 K/uL (0.0-0.2); BASOPHILS % (AUTO) 0.7 % (0.0-2.0); EOSINOPHILS % (AUTO) 0.2 % (0.0-4.0); HEMOGLOBIN 9.3 g/dL (14.0-18.0); LYMPHOCYTES # (AUTO) 2.4 K/uL (1.0-5.5); LYMPHOCYTES % (AUTO) 29.8 % (20.5-51.5); MEAN CORPUSCULAR HEMOGLOBIN 29 pg (27-31); MEAN CORPUSCULAR HGB CONC 32 % (32-36); MEAN CORPUSCULAR VOLUME 89 fL (79.0-98.0); MONOCYTES # (AUTO) 0.5 K/uL (0.0-1.0); MONOCYTES % (AUTO) 6.3 % (1.7-9.3); NEUTROPHILS # (AUTO) 5.1 K/uL (1.8-7.7); PLATELET COUNT (AUTO) 87 K/uL (130-430); RED BLOOD CELL COUNT(AUTO) 3.27 MIL/uL (4.2-6.2); RED CELL DISTRIBUTION WIDTH 13.9 % (9.0-15.0); WHITE BLOOD COUNT (AUTO) 8.1 K/uL (4.8-10.8)
--- NOTE | 2017-02-19 07:20 | NUR ---
Initial notes: pt on bed awake, alert and oriented. stable. i.v. access patent. on going bladder irrigation. cramer cath draining well with blood in urine. discussed plan of care. call light within reach. report received at bedside.
[2017-02-19 08:00] VITALS: BP 141/78; PULSE 77; RESP 14; TEMP 97.2; O2SAT 99
[2017-02-19] MEDS: MUPIROCIN 2% TOPICAL OINTMENT 22 GM TP SCH ×2 (08:35→21:16)
[2017-02-19] MEDS: FLUTICASONE PROPIONATE 50 mCg/SPRAY 16 GM NS SCH ×2 (08:35→21:17)
[2017-02-19] MEDS: FERROUS SULFATE 325 MG TABLET.DR PO SCH ×3 (08:35→21:17)
[2017-02-19] MEDS: OMEPRAZOLE 20 MG CAPSULE.DR (PriLOSEC) PO SCH (08:36)
[2017-02-19] MEDS: CARVEDILOL 12.5 MG TABLET (COREG) PO SCH ×2 (08:36→18:31)
[2017-02-19] MEDS: PREDNISONE 20 MG TABLET PO SCH ×2 (08:36→21:17)
[2017-02-19] MEDS: DESMOPRESSIN 0.1 MG TAB (DDAVP) PO SCH (08:36)
--- NOTE | 2017-02-19 08:39 | NUR ---
rounds: pt sitting on the bed. eating breakfast. no distress noted.
[2017-02-19] MEDS: cefTRIAXone 1 GM in D5W 50 ML IV SCH (10:52)
[2017-02-19] MEDS: traMADol HCL HCL 50 MG TABLET (ULTRAM) PO PRN (10:52)
--- NOTE | 2017-02-19 10:57 | NUR ---
P.T. did P.T. exercise. able to walk inside the room.
--- NOTE | 2017-02-19 11:15 | NUR ---
STEVE SCALE EVALUATION: Patient evaluated for a low Steve score of 17. Patient was awake, alert, oriented, and received in a Micaela bed with an IsoFlex OSCAR mattress. Patient is able to turn independently, and ambulate with FWW with assist. Skin is fair. Recommend encourage and assist patient as needed with repositioning every 2 hours with pillow support, and off-load heels and pressure areas with pillows for pressure re-distribution. Use moisture barrier cream on buttocks and other moisture susceptible areas QID and as needed for soiling. Perform skin care and monitor skin integrity Q shift.
[2017-02-19 12:37] VITALS: BP 144/73; PULSE 67; RESP 16; TEMP 97.6; O2SAT 99
[2017-02-19] MEDS: NACL 0.9% 1,000 ML IV SCH ×2 (13:33→21:17)
--- NOTE | 2017-02-19 16:00 | NUR ---
Bladder irrigation: Pt on continuous bladder irrigation. It was clogged. Charge Nurse changed cramer cath. Draining well with bloody urine. Drained 1400cc.
[2017-02-19 16:52] VITALS: BP 134/68; PULSE 66; RESP 18; TEMP 98.2; O2SAT 98
[2017-02-19] MEDS: MONTELUKAST 10 MG TABLET PO SCH (18:28)
--- NOTE | 2017-02-19 18:45 | NUR ---
rounds: pt eating dinner. stable.
--- NOTE | 2017-02-19 19:30 | NUR ---
closing notes: pt on bed awake. stable. bladder irrigation stop/clogged. pass report to construction driller. call light within reach.
[2017-02-19 20:00] VITALS: BP 110/64; PULSE 60; RESP 19; TEMP 97.8; O2SAT 97
--- NOTE | 2017-02-19 20:00 | NUR ---
PM Shift Assessment Received patient sitting up in bed, AAO x4, no acute distress noted. IV noted to right forearm, IV fluids infusing well, no redness or swelling noted to IV site. Catheter noted, not patent, irrigated, continuous bladder irrigation re-started and flowing well. Plan of care discussed with patient, he verbalized understanding. Patient is verbally able to make needs known and encouraged to do so. Education provided to not get out of bed without calling for assistance for safety, he verbalized understanding. Call light is within reach, all fall, safety and isolation precautions in place, will continue to monitor for change in patient status.
[2017-02-19] MEDS: TAMSULOSIN HCL 0.4 MG CAP PO SCH (21:17)
--- NOTE | 2017-02-19 22:18 | NUR ---
RN Rounds Patient is resting quietly in bed, no acute distress noted. Continuous bladder irrigation flowing well, patent, no complain of pain or pressure, patient tolerating well. Scheduled medications were administered as ordered per MD earlier. IV fluids infusing well. Encouraged patient to call with all needs. Call light is within reach, all fall and safety precautions in place, will continue to monitor.
[2017-02-20 00:04] VITALS: BP 130/80; PULSE 92; RESP 20; TEMP 98; O2SAT 98
--- NOTE | 2017-02-20 00:27 | NUR ---
RN Rounds Patient is sleeping but easily arousable, no acute distress noted. IV fluids infusing well. Continuous bladder irrigation patent and flowing well. Call light is within reach, all fall and safety precautions in place, will continue to monitor closely.
--- NOTE | 2017-02-20 02:32 | NUR ---
RN Rounds Patient is resting quietly in bed, no acute distress noted. Continuous bladder irrigation patent and flowing well. Call light is within reach, all fall and safety precautions in place, will continue to monitor.
[2017-02-20 03:26] VITALS: BP 104/51; PULSE 62; RESP 20; TEMP 97.6; O2SAT 96
[2017-02-20 06:35] LABS: INR 1.1 (0.80-1.20); PROTHROMBIN TIME 11.5 SECS (9.5-12.5)
--- NOTE | 2017-02-20 06:39 | NUR ---
Closing Notes Patient is sleeping but easily arousable, no acute distress noted. IV fluids infusing well. Continuous bladder irrigation patent and flowing well. Patient is stable, all needs met throughout shift. Call light is within reach. All fall, safety, and isolation precautions in place, will continue to monitor until SBAR report is endorsed to AM nurse at bedside.
[2017-02-20 07:11] LABS: BASOPHILS # (AUTO) 0.1 K/uL (0.0-0.2); EOSINOPHILS % (AUTO) 0.2 % (0.0-4.0); HEMATOCRIT 28.5 % (36-54); HEMOGLOBIN 9.1 g/dL (14.0-18.0); LYMPHOCYTES # (AUTO) 2.7 K/uL (1.0-5.5); LYMPHOCYTES % (AUTO) 30.8 % (20.5-51.5); MEAN CORPUSCULAR HEMOGLOBIN 28 pg (27-31); MEAN CORPUSCULAR HGB CONC 32 % (32-36); MEAN CORPUSCULAR VOLUME 89 fL (79.0-98.0); MONOCYTES # (AUTO) 0.5 K/uL (0.0-1.0); MONOCYTES % (AUTO) 5.2 % (1.7-9.3); NEUTROPHILS # (AUTO) 5.4 K/uL (1.8-7.7); NEUTROPHILS % (AUTO) 62.8 % (40.0-70.0); PLATELET COUNT (AUTO) 99 K/uL (130-430); RED BLOOD CELL COUNT(AUTO) 3.21 MIL/uL (4.2-6.2); RED CELL DISTRIBUTION WIDTH 14.3 % (9.0-15.0); WHITE BLOOD COUNT (AUTO) 8.7 K/uL (4.8-10.8)
--- NOTE | 2017-02-20 08:00 | NUR ---
Opening note: Received report from night nurse. Patient is alert and oriented. IV is patent and infusing. Lancaster draining to gravity. Bladder Irrigation is in place. Vital signs wnl, assessment complete. Call light in reach, bed in lowest position, and will continue to monitor.
[2017-02-20 08:03] VITALS: BP 110/65; PULSE 79; RESP 16; TEMP 97.4; O2SAT 93
[2017-02-20] MEDS: PREDNISONE 20 MG TABLET PO SCH ×2 (08:57→21:40)
[2017-02-20] MEDS: OMEPRAZOLE 20 MG CAPSULE.DR (PriLOSEC) PO SCH (08:57)
[2017-02-20] MEDS: FERROUS SULFATE 325 MG TABLET.DR PO SCH ×3 (08:57→21:40)
[2017-02-20] MEDS: FLUTICASONE PROPIONATE 50 mCg/SPRAY 16 GM NS SCH ×2 (08:58→21:40)
[2017-02-20] MEDS: MUPIROCIN 2% TOPICAL OINTMENT 22 GM TP SCH ×2 (08:58→21:39)
[2017-02-20] MEDS: CARVEDILOL 12.5 MG TABLET (COREG) PO SCH ×2 (08:58→17:37)
[2017-02-20] MEDS: DESMOPRESSIN 0.1 MG TAB (DDAVP) PO SCH (10:00)
--- NOTE | 2017-02-20 10:00 | NUR ---
NOTE: PATIENT IS RESTING COMFORTABLY IN BED. NO S/S OF DISTRESS OR SOB. PATIENT IS ALERT AND ORIENTED, ABLE TO EXPRESS NEEDS, AND ASK FOR ASSISTANCE. CALL LIGHT IN REACH, BED IN LOWEST POSITION, AND WILL CONTINUE TO MONITOR.
[2017-02-20] MEDS: cefTRIAXone 1 GM in D5W 50 ML IV SCH (11:23)
[2017-02-20] MEDS: NACL 0.9% 1,000 ML IV SCH ×2 (11:23→18:49)
[2017-02-20 12:47] VITALS: BP 113/69; PULSE 72; RESP 18; TEMP 97.4; O2SAT 95
--- NOTE | 2017-02-20 14:00 | NUR ---
NOTE: PATIENT IS RESTING COMFORTABLY IN BED. NO S.S OF DISTRESS OR SOB. BLADDER IRRIGATION STOPPED DUE TO CLOTS, MANUAL IRRIGATION WAS PERFORMED AND SOME CLOTS REMOVED. IV IRRIGATION CONTINUED ON ITS OWN, SLOW BUT RUNNING. PATIENT TOLERATED WELL. CALL LIGHT IN REACH, BED IN LOWEST POSITION, AND WILL CONTINUE TO MONITOR.
--- NOTE | 2017-02-20 14:48 | NUR ---
PHYSICAL THERAPY CO-SIGN The Physical Therapy Progress Notes documented by Game Designer have been reviewed. I CONCUR W/TAILERCPA NOTE; CONT PER TX PLAN Reviewed/Co-Signed by: Molly Torres PT Documentation Done by: JAYLEN NGO TAILERCPA Addendum: 02/20/17 at 1449 by Molly Torres PT Amended: Links added.
--- NOTE | 2017-02-20 16:00 | NUR ---
Note: Patient is resting comfortably in bed. No s/s of distress or sob. patient is alert and oriented, able to express needs, and ask for assistance. Call light in reach, bed in lowest position, and will continue to monitor.
[2017-02-20 17:27] VITALS: BP 142/73; PULSE 69; RESP 18; TEMP 97.5; O2SAT 98
[2017-02-20] MEDS: MONTELUKAST 10 MG TABLET PO SCH (17:36)
--- NOTE | 2017-02-20 18:27 | NUR ---
CLOSING NOTE: PATIENT IS RESTING COMFORTABLY IN BED. NO S/S OF DISTRESS OR SOB. PATIENT IS CURRENTLY SITTING IN BED EATING DINNER. IV IS PATENT AND INFUSING. CONTINUOUS IRRIGATION IN PLACE. DIEZ DRAINING TO GRAVITY. CALL LIGHT IN REACH, BED IN LOWEST POSITION, AND WILL GIVE REPORT TO NIGHT NURSE.
[2017-02-20 19:15] VITALS: BP 124/60; PULSE 71; RESP 16; TEMP 98; O2SAT 98
--- NOTE | 2017-02-20 19:15 | NUR ---
OPENING NOTES RECEIVED REPORT AT BEDSIDE FROM AM NURSE. PATIENT'S CONTINUOUS BLADDER IRRIGATION RUNNING AND DIEZ FILLING. PATIENT DENIES ANY PAIN. NO ACUTE SIGNS OR SYMPTOMS OF DISTRESS NOTED. BED IN LOWEST POSITION, CALL LIGHT WITHIN REACH, CONTACT PRECAUTIONS IN PLACE. WILL CONTINUE TO MONITOR FREQUENTLY.
[2017-02-20] MEDS: TAMSULOSIN HCL 0.4 MG CAP PO SCH (21:40)
--- NOTE | 2017-02-20 21:50 | NUR ---
ROUNDS PATIENT SITTING UP IN BED WATCHING TELEVISION, EATING A SANDWICH. PATIENT IN GOOD SPIRITS. CONTINUOUS BLADDER IRRIGATION CONTINUES TO RUN. NO IMMEDIATE COMPLICATIONS NOTED. IV PATENT. FALL AND CONTACT PRECAUTIONS IN PLACE. CALL LIGHT WITHIN REACH.
--- NOTE | 2017-02-20 23:45 | NUR ---
ROUNDS PATIENT SLEEPING COMFORTABLY. VISIBLE RISE AND FALL OF CHEST NOTED, AUDIBLY SNORING. FALL PRECAUTIONS IN PLACE. NO ACUTE S/S OF DISTRESS NOTED. WILL CONTINUE TO MONITOR. CALL LIGHT WITHIN REACH.
[2017-02-21] VITALS: BP 102/43; PULSE 61; RESP 16; TEMP 97.6; O2SAT 96
--- NOTE | 2017-02-21 02:00 | NUR ---
ROUNDS PATIENT SLEEPING COMFORTABLY WITH VISIBLE RISE AND FALL OF CHEST NOTED. FALL PRECAUTIONS IN PLACE. NO ACUTE S/S OF DISTRESS NOTED. WILL CONTINUE TO MONITOR. CALL LIGHT WITHIN REACH.
[2017-02-21 04:00] VITALS: BP 127/63; PULSE 74; RESP 16; TEMP 98.4; O2SAT 98
--- NOTE | 2017-02-21 04:04 | NUR ---
ROUNDS PATIENT SITTING UP IN BED WATCHING TELEVISION. NO ACUTE S/S OF DISTRESS NOTED. CONTINUOUS BLADDER IRRIGATION RUNNING. PATIENT PROVIDED WITH CRACKERS AT HIS REQUEST. BED IN LOWEST POSITION AND CALL LIGHT WITHIN REACH.
[2017-02-21 06:28] LABS: ANION GAP 3 (5-15); CALCIUM 7.7 mg/dL (8.4-11.0); CHLORIDE 106 mmol/L (98-107); CREATININE 0.78 mg/dL (0.55-1.30); GLUCOSE 164 mg/dL (70-99); POTASSIUM 3.7 mmol/L (3.5-5.1); SODIUM SERUM 134 mmol/L (136-145); UREA NITROGEN, BLOOD 20 mg/dL (8-21)
--- NOTE | 2017-02-21 06:42 | NUR ---
CLOSING NOTES PATIENT SITTING IN BED RESTING COMFORTABLY. CONTINUOUS BLADDER IRRIGATION RUNNING AND LIGHTENING UP IN COLOR, FROM A DARK RED TO A LIGHT PADMAJA. IV PATENT AND RUNNING. PATIENT IN GOOD SPIRITS WATCHING TELEVISION. NO ACUTE S/S OF DISTRESS NOTED. BED IN LOWEST POSITION, CALL LIGHT WITHIN REACH. ALL NEEDS MET THROUGHOUT THE SHIFT. WILL ENDORSE CARE TO DAY SHIFT NURSE.
[2017-02-21 06:58] LABS: BASOPHILS # (AUTO) 0.1 K/uL (0.0-0.2); EOSINOPHILS % (AUTO) 0.2 % (0.0-4.0); HEMATOCRIT 26.8 % (36-54); HEMOGLOBIN 8.6 g/dL (14.0-18.0); LYMPHOCYTES # (AUTO) 2.5 K/uL (1.0-5.5); LYMPHOCYTES % (AUTO) 25.4 % (20.5-51.5); MEAN CORPUSCULAR HEMOGLOBIN 29 pg (27-31); MEAN CORPUSCULAR HGB CONC 32 % (32-36); MEAN CORPUSCULAR VOLUME 89 fL (79.0-98.0); MONOCYTES # (AUTO) 0.6 K/uL (0.0-1.0); MONOCYTES % (AUTO) 6.1 % (1.7-9.3); NEUTROPHILS # (AUTO) 6.7 K/uL (1.8-7.7); NEUTROPHILS % (AUTO) 67.3 % (40.0-70.0); PLATELET COUNT (AUTO) 111 K/uL (130-430); RED CELL DISTRIBUTION WIDTH 13.7 % (9.0-15.0); WHITE BLOOD COUNT (AUTO) 9.9 K/uL (4.8-10.8)
--- NOTE | 2017-02-21 07:15 | NUR ---
initial notes: pt on bed awake, alert and oriented. discussed plan of care. call light within reach. report given at bedside.
[2017-02-21] MEDS: FERROUS SULFATE 325 MG TABLET.DR PO SCH ×3 (09:08→21:29)
[2017-02-21] MEDS: PREDNISONE 20 MG TABLET PO SCH ×2 (09:09→21:28)
[2017-02-21] MEDS: CARVEDILOL 12.5 MG TABLET (COREG) PO SCH ×2 (09:09→17:51)
[2017-02-21] MEDS: OMEPRAZOLE 20 MG CAPSULE.DR (PriLOSEC) PO SCH (09:09)
[2017-02-21] MEDS: MUPIROCIN 2% TOPICAL OINTMENT 22 GM TP SCH ×2 (09:10→21:29)
[2017-02-21] MEDS: FLUTICASONE PROPIONATE 50 mCg/SPRAY 16 GM NS SCH ×2 (09:12→21:29)
[2017-02-21] MEDS: DESMOPRESSIN 0.1 MG TAB (DDAVP) PO SCH (09:13)
--- NOTE | 2017-02-21 09:18 | NUR ---
Eduardo.: seen by Mehnaz plan to ambulate in the hallway.
--- NOTE | 2017-02-21 09:18 | NUR ---
Tayler rounds: seen by Dr. Corona.
[2017-02-21 11:45] VITALS: BP 98/50; PULSE 60; RESP 16; TEMP 97.7; O2SAT 99
[2017-02-21] MEDS: cefTRIAXone 1 GM in D5W 50 ML IV SCH (11:49)
--- NOTE | 2017-02-21 12:45 | NUR ---
PHYSICAL THERAPY CO-SIGN The Physical Therapy Progress Notes documented by Payment Poster have been reviewed. Reviewed/Co-Signed by: Melonie Velazquez,PT Documentation Done by: Jose Henry PTA I concur with the documentation of this BAND RIPSAW OPERATOR. Plan: continue PT as per plan of care. Addendum: 02/21/17 at 1404 by Melonie Velazquez PT Amended: Links added.
[2017-02-21 16:18] VITALS: BP 144/101; PULSE 71; RESP 16; TEMP 98.5; O2SAT 99
[2017-02-21] MEDS: NACL 0.9% 1,000 ML IV SCH (16:46)
--- NOTE | 2017-02-21 16:52 | NUR ---
Urine output: Drained 3,000cc with light red urine color.
[2017-02-21] MEDS: MONTELUKAST 10 MG TABLET PO SCH (17:50)
--- NOTE | 2017-02-21 18:00 | NUR ---
rounds: pt on bed. stable. finishing dinner. urine output very light red.
--- NOTE | 2017-02-21 19:30 | NUR ---
Initial Notes Pt is A/Ox3, pleasant and cooperative. Pt denies any pain or discomfort at this time. Pt is on a continuous bladder irrigation 3 way with light pink tinged urine noted with good flow to gravity. Plan of care discussed with pt, pt verbalized understanding. Will reinforce teaching as needed. VSS. IV intact. Breathing is even and unlabored. Safety precautions in place, side rails up x3, with bed in lowest, locked position, bed alarm on, pt's room close to nurses station. Pt educated modeling and simulation analyst light and correct back demonstration noted. All needs met at this time. Call light in hand. Will continue to monitor.
--- NOTE | 2017-02-21 19:30 | NUR ---
closing notes: pt on bed resting. stable. needs attended. call light within reach. report received at bedside.
--- NOTE | 2017-02-21 21:15 | NUR ---
Pain Management Pt c/o pain 05/28 to right hip/leg, stating that pain was not relived by tylenol given earlier. Pt medicated with Ultram for moderate pain as ordered. Will continue to monitor. Addendum: 02/22/17 at 0021 by Luz Bob LVN Correct time [id number]
[2017-02-21] MEDS: TAMSULOSIN HCL 0.4 MG CAP PO SCH (21:29)
--- NOTE | 2017-02-21 21:30 | NUR ---
Assisted fall/pain management Pt assisted to floor, when pt stated that his right leg "gave out" and was painful. No acute distress or sob noted. Pt noted to have skin tear to right arm. Wound care provided. Oil emulsion applied with non - adherent dressing and covered with kerlix and secured with tape. Pt assisted into bed safely. All scheduled medications discussed with pt, pt verbalized understanding. Pt c/o pain to right leg 01/26, pt medicated with Tylenol as ordered. All needs met at this time. Call light in hand. Will continue to monitor.
[2017-02-21] MEDS: traMADol HCL HCL 50 MG TABLET (ULTRAM) PO PRN (23:15)
--- NOTE | 2017-02-21 23:22 | NUR ---
Spoke with MD Rizo Informed that pt c/o right hip/leg pain after he had an assisted fall tonight, stating "It feels like my hip is broken." stated to take xray of hip and leg. general maintenance mechanic and Radiology made aware of new orders.
[2017-02-22] VITALS (11 sets, daily range): BP systolic 112–157; BP diastolic 59–99; PULSE 54–79; RESP 14–22; TEMP 97.3–98.4; O2SAT 66–100
--- NOTE | 2017-02-22 | NUR ---
Radiology at bedside Jayde from radiology with pt at this time.
--- NOTE | 2017-02-22 00:40 | NUR ---
Shira Rizo with Preliminary results of Xray of hip
--- NOTE | 2017-02-22 00:59 | NUR ---
Spoke with MD - Endorsement of care Spoke with MD Ladd informed of preliminary results of xray of right hip with showed fracture. MD ordered bucks traction 5 lbs, ortho consult with MD Germain, and Dilaudid 1mg IVP Q4 PRN for severe pain. Continuous bladder irrigation with pink tinged urine. Care and report endorsed to Elisabet FERNANDES.
--- NOTE | 2017-02-22 01:00 | NUR ---
CONSULTATION PAGED REASON FOR CONSULTATION:RIGHT FEMORAL NECK FRACTURE WAS CONSULT CALLED?Y PERSON WHO WAS NOTIFIED:CANDELARIO CONSULTING PHYSICIAN:VAZQUEZ OLGUIN SUPERINTENDENT DIVISION SPECIALTY:SURGEON SUPERINTENDENT DIVISION PHONE NUMBER:[phone]
--- NOTE | 2017-02-22 01:46 | NUR ---
ASSUMPTION OF CARE Pt. and report received from LVN. Amaris Will assume care for patient.
[2017-02-22] MEDS: NACL 0.9% 1,000 ML IV SCH ×3 (01:52→16:37)
[2017-02-22] MEDS: HYDROmorphone 1 MG INJ. 1 MG/ML AMPUL IVP PRN (01:54)
--- NOTE | 2017-02-22 01:58 | NUR ---
FALL RISK BAND ALERT/DILAUDID Pt. medicated with Dilaudid 1mg IVP as ordered PRN for severe pain to right leg. Educated pt. regarding medication and s/e and his risk for falls. Pt. verbalized understanding. Educated pt. regarding MD order for [place]' traction 5lbs. Pt. denies any questions or concerns at this time. Encouraged pt. to use call light for needs. Call light to right hand. Will continue to monitor.
--- NOTE | 2017-02-22 03:11 | NUR ---
BUCKS' TRACTION Randall' traction at 5lbs applied to right leg as ordered by . Pt. was instructed on its use and tolerated well with no other concerns at this time. Encouraged pt. to use call light for needs. Bed alarm on. Will continue to monitor.
--- NOTE | 2017-02-22 04:23 | NUR ---
ROUNDS Pt. is resting quietly in bed with eyes closed. Respirations are even and unlabored with visible chest rise and fall. No s/s of acute distress. Safety and fall precautions in place. Bed alarm on. Call light to right hand. Will continue to monitor.
--- NOTE | 2017-02-22 06:11 | NUR ---
TRANSFERRED TO ROOM 120A Transferred pt. to room 120A for safety/fall precautions. Pt. tolerated well. Oriented pt. to room, call light, safety and isolation precautions. Pt. denies any discomfort at this time. Bed alarm on. Will continue to monitor.
[2017-02-22 06:22] LABS: BASOPHILS % (AUTO) 0.1 % (0.0-2.0); EOSINOPHILS # (AUTO) 0.1 K/uL (0.0-0.4); EOSINOPHILS % (AUTO) 0.3 % (0.0-4.0); HEMATOCRIT 27.3 % (36-54); LYMPHOCYTES # (AUTO) 3.2 K/uL (1.0-5.5); LYMPHOCYTES % (AUTO) 18.6 % (20.5-51.5); MEAN CORPUSCULAR HEMOGLOBIN 28 pg (27-31); MEAN CORPUSCULAR HGB CONC 33 % (32-36); MEAN CORPUSCULAR VOLUME 85 fL (79.0-98.0); MONOCYTES # (AUTO) 0.8 K/uL (0.0-1.0); MONOCYTES % (AUTO) 4.8 % (1.7-9.3); NEUTROPHILS # (AUTO) 13.2 K/uL (1.8-7.7); NEUTROPHILS % (AUTO) 76.2 % (40.0-70.0); PLATELET COUNT (AUTO) 121 K/uL (130-430); RED CELL DISTRIBUTION WIDTH 14.3 % (9.0-15.0); WHITE BLOOD COUNT (AUTO) 17.3 K/uL (4.8-10.8)
--- NOTE | 2017-02-22 06:53 | NUR ---
WOUND CARE/CLOSING NOTES All needs met. Pt. is resting quietly in bed with no s/s of acute distress. VSS. Pt. denies any pain or discomfort at this time. States he is "comfortable." Wound care done to right arm due to soiling. Pt. tolerated well. IV site redressed due to soiling. No s/s of infiltration. IVF infusing as ordered. Lancaster catheter is intact with continuous irrigation as ordered, pinkish clear output noted. Hart traction to right leg with 5lb weight. Safety and fall precautions in place. Call light to right hand. Bed alarm on. Encouraged pt. to use call light for needs. Will endorse care to oncoming day shift nurse.
--- NOTE | 2017-02-22 07:51 | NUR ---
INITIAL NOTE PT LAYING IN BED, AWAKE, ALERT AND ORIENTED X4, NO S/S OF DISTRESS. VSS. NOTED RIGHT LEG TO BUCKS TRACTION 5 LBS, PT REFUSES SCD PLACEMENT AT THIS TIME DESPITE EDUCATION. IV TO RFA INTACT AND INFUSING FLUIDS AT ORDERED RATE, NOT S/S OF INFILTRATION NOTED. DIEZ CATHETER IN PLACE WITH CONTINUOUS IRRIGATION ORDERED, PINK CLEAR TINGED URINE NOTED. PT REORENTED TO USE OF CALL LIGHT AND IT IS PLACED WITHIN REACH, SAFETY MEASURES IN PLACE, BED IN LOW POSITION AND LOCKED, POC DISCUSSED WITH PATIENT, PT VERBALIZED UNDERSTANDING, WILL CONTINUE TO MONITOR.
[2017-02-22] MEDS: CARVEDILOL 12.5 MG TABLET (COREG) PO SCH ×2 (08:50→18:44)
[2017-02-22] MEDS: DESMOPRESSIN 0.1 MG TAB (DDAVP) PO SCH (08:52)
[2017-02-22] MEDS: FERROUS SULFATE 325 MG TABLET.DR PO SCH ×3 (08:55→20:40)
[2017-02-22] MEDS: PREDNISONE 20 MG TABLET PO SCH ×2 (08:55→20:37)
[2017-02-22] MEDS: OMEPRAZOLE 20 MG CAPSULE.DR (PriLOSEC) PO SCH (08:57)
[2017-02-22] MEDS: MUPIROCIN 2% TOPICAL OINTMENT 22 GM TP SCH ×2 (09:00→20:41)
[2017-02-22] MEDS: FLUTICASONE PROPIONATE 50 mCg/SPRAY 16 GM NS SCH ×2 (09:01→20:41)
--- NOTE | 2017-02-22 10:00 | NUR ---
PAIN ASSESSMENT PT VERBALIZED HE WAS INJURED WHILE HE WAS UP WITH ASSISTANCE TO THE RESTROOM, STATES HE WAS WALKING WALKER AND HE FELT HIS LEG GIVE OUT UNDER HIM, WAS ASSISTED TO FLOOR. WAS IN EXCRUCIATING PAIN BEFORE PAIN MEDICATION AND BUCKS TRACTION WAS APPLIED. WITH BUCKS TRACTION PAIN IS TOLERABLE, PT OFFERED PAIN MEDICATION, PT REFUSES MEDICATION AT THIS TIME, STATE PAIN IS AT A TOLERABLE LEVEL. NEURO CHECK COMPLETE, PEDAL PULSES PALPABLE, WILL FOLLOW UP
[2017-02-22] MEDS: cefTRIAXone 1 GM in D5W 50 ML IV SCH (10:28)
--- NOTE | 2017-02-22 11:00 | NUR ---
PT NOTE 1028 MEDICAL CHART REVIEWED, XRAY OF R FEMUR SHOWED DISPLACED FEMORAL NECK FX. PER RN, Pt FELL LAST NIGHT CURRENTLY ON BELLO'S TRACTION AND HAS PENDING ORTHO CONSULT. DC PT SERVICES FOR NOW DUE TO CHANGE IN MEDICAL CONDITION. ZACHERYE(1)
--- NOTE | 2017-02-22 12:00 | NUR ---
ROUNDS PT SITTING UP IN BED, PAIN ASSESSED, PT STATES HE HAS NO PAIN AT THIS TIME, PEDAL PULSES PALPABLE, ABLE TO WIGGLE TOES, PT SET UP FOR LUNCH, WILL FOLLOW UP.
--- NOTE | 2017-02-22 13:35 | NUR ---
DR FRY PAGED TO FOLLOW UP ON CONSULT, STATED HE WOULD BE IN TO SEE PATIENT SOON. WILL FOLLOW UP.
--- NOTE | 2017-02-22 14:10 | NUR ---
DR FRY AT BEDSIDE UPDATED PATIENT ON PLAN OF CARE, PT TO BE NPO AFTER MIDNIGHT PENDING RIGHT HIP HEMIARTHROPLASTY IN AM, PT VERBALIZED UNDERSTANDING AND AGREES WITH PLAN OF CARE. WILL FOLLOW UP WITH CONSENT AND PAPERWORK.
--- NOTE | 2017-02-22 15:30 | NUR ---
DR SOLIS ROUNDING FOR DR ALFARO, UPDATED ON PLAN OF CARE. NO NEW ORDERS RECEIVED.
--- NOTE | 2017-02-22 16:50 | NUR ---
Nutrition F/U Admitting Diagnosis UTI, severe anemia, acute renal failure, sepsis Reviewed Pertinent Medical/Surgical Hx Medical Record Medical History Comment: Significant for CLL, CAD, chronic leukemia Subjective Information Pt seen resting in bed at time of RD visit w/ primary RN providing care. Pt reported good appetite since last RD visit. He reported that he has been receiving snacks BID as previously ordered. Per RN, pt will have R hip hemiarthroplasty tomorrow, as pt had a fall yesterday per nursing notes. RD inquired about further food preferences for tonphilippe's dinner/snack prior to NPO status for Sx tomorrow. RD noted food preferences and notified [facility] staff. Current diet and snacks BID remain appropriate and adequate. Pt declined nutrition education. Current Diet Order/Nutrition Support Cardiac x5 days (active order for NPO at breakfast 02/23/17) Patient/Significant Other Able To Verbalize Pertinent Medications ceftriaxone/D5% IV at 100 ml/hr (408 kcal/day), prednisone, MoM, dulcolax Pertinent Labs 02/16/17: lactic acid 2 WNL (improved) Height (Feet) 6 feet Height (Inches) 2.00 inches Weight (Pounds) 205 pounds (admission) Weight (Calculated Kilograms) 92.921534 kilograms Patient Weight 92.986 kg Body Mass Index 26.32 kg/m2 (normal, appropriate for geriatric status) Usual Weight 240 lbs %UBW 85 %IBW 108 [place]/Adjusted Body Weight 190 lb/86 kg Recent Weight Change Yes - Reported 13% wt loss x 1 month Weight Status Overweight Last BM x3 02/18/17 Food Allergies Reported avoids foods high in vK d/t blood thinners Usual Diet At Home Adequate, 3 meals per day Skin Integrity Comment: Steve: 18. Per Retirement Actuary note 02/19/17: skin is fair Current % PO Good (75-100%); 94% average x12 meals Estimated Energy Expenditure (kcals/day) -- MODIFIED 9207-4914 kcal/day (BEE x 1.2-1.5 for sepsis, anticipated Sx) Estimated Protein Required (g/day) -- MODIFIED 86-103 gm/day (1-1.2 gm/kg IBW for acute renal failure, sepsis, anticipated Sx) Estimated Fluid Required (l/day) Per MD (ARF) Problem/Etiology/Signs/Symptoms Increased nutrient needs related to infection as evidenced by unintentional 13% wt loss x 1 month. *ongoing Expected Outcomes/Goals * Monitor tolerance of diet, appetite, and PO intakes with goal of pt meeting at least 75% of estimated nutritional needs, labs trending WNL, normal GI function, skin integrity/weight maintenance Dietitian Recommendations * Recommend continuing cardiac diet per MD * Encourage PO intake as tolerated * Recommend continuing snacks BID Follow Up Mod Risk: F/U in 3-5 days
--- NOTE | 2017-02-22 18:21 | NUR ---
PT SITTING IN BED, HAVING DINNER, NO S/S OF DISTRESS OR DIFFICULTY SWALLOWING, PT A/O X3, PT STATES HE HAS NO NEEDS AT THIS TIME, TO PLEASE RETURN LATER FOR [place] MEDICATIONS, SAFETY MEASURES IN PLACE,WILL FOLLOW UP.
[2017-02-22] MEDS: MONTELUKAST 10 MG TABLET PO SCH (18:44)
--- NOTE | 2017-02-22 19:20 | NUR ---
initial nursing notes: Patient is awake. Patient has IV fluid infusing on the right forearm IV access. Patient is on continuous bladder irrigation. Lancaster catheter draining yumi colored urine output with sediments.
--- NOTE | 2017-02-22 19:30 | NUR ---
CLOSING NOTE ALL NEEDS ATTENDED TO THROUGHOUT SHIFT, NO S/S OF DISTRESS OR COMPLAINT OF PAIN, VSS, IV TO RFA INTACT AND INFUSING AT ORDERED RATE, NO COMPLAINT OF PAIN OR DISCOMFORT AT SITE. DRESSING TO RIGHT ARM CLEAN, DRY AND INTACT. DIEZ CATHETER INTACT WITH CONTINUOUS IRRIGATION ORDERED, URINE OUTPUT CLEAR JAMES/PINK TINGED, BUCKS TRACTION TO RIGHT LEG WITH 5LB WEIGHT. SAFETY MEASURES IN PLACE, CALL LIGHT WITHIN REACH, BED IN LOW POSITION AND LOCKED, BED ALARM ON, SIDE RAILS UP X2, PT REMINDED TO CALL FOR ASSISTANCE, WILL GIVE REPORT TO RECEIVING DOM LEMUS.
[2017-02-22] MEDS: TAMSULOSIN HCL 0.4 MG CAP PO SCH (20:36)
--- NOTE | 2017-02-22 21:20 | NUR ---
nursing rounds: Patient watching television. Patient denies of having pain.
--- NOTE | 2017-02-22 23:20 | NUR ---
nursing rounds: Patient is asleep. Patient has no shortness of breath.
[2017-02-23 00:19] VITALS: BP 112/58; PULSE 60; RESP 18; TEMP 98.8; O2SAT 96
--- NOTE | 2017-02-23 01:20 | NUR ---
nursing rounds: Patient received suppository for constipation. Suppository was effective. Patient had a bowel movement.
[2017-02-23] MEDS: traMADol HCL HCL 50 MG TABLET (ULTRAM) PO PRN (03:02)
--- NOTE | 2017-02-23 03:20 | NUR ---
Patient received pain medication PO for right hip pain.
--- NOTE | 2017-02-23 05:20 | NUR ---
nursing rounds: Patient is sleeping in bed. Patient has no respiratory distress.
[2017-02-23 05:22] VITALS: BP 144/72; PULSE 58; RESP 18; TEMP 98.7; O2SAT 98
[2017-02-23 06:25] LABS: BASOPHILS % (AUTO) 0.1 % (0.0-2.0); EOSINOPHILS # (AUTO) 0.1 K/uL (0.0-0.4); EOSINOPHILS % (AUTO) 0.8 % (0.0-4.0); HEMATOCRIT 24.8 % (36-54); HEMOGLOBIN 8.2 g/dL (14.0-18.0); LYMPHOCYTES # (AUTO) 3.4 K/uL (1.0-5.5); LYMPHOCYTES % (AUTO) 27.9 % (20.5-51.5); MEAN CORPUSCULAR HEMOGLOBIN 29 pg (27-31); MEAN CORPUSCULAR HGB CONC 33 % (32-36); MEAN CORPUSCULAR VOLUME 88 fL (79.0-98.0); NEUTROPHILS # (AUTO) 7.6 K/uL (1.8-7.7); NEUTROPHILS % (AUTO) 63.2 % (40.0-70.0); PLATELET COUNT (AUTO) 128 K/uL (130-430); RED BLOOD CELL COUNT(AUTO) 2.83 MIL/uL (4.2-6.2); RED CELL DISTRIBUTION WIDTH 14.1 % (9.0-15.0); WHITE BLOOD COUNT (AUTO) 12.1 K/uL (4.8-10.8)
--- NOTE | 2017-02-23 07:55 | NUR ---
closing nursing notes: Patient is awake, alert and oriented X 4. Patient is in no acute respiratory distress. No episodes of fall and no injuries throughout the welder 2nd shift. Provided nursing report to incoming morning shift nurse, DOM Jimenes, at patient's bedside.
--- NOTE | 2017-02-23 08:00 | NUR ---
Neurovascular Alert/oriented x4 , kept NPO for surgery in the afternoon , right leg externally rotated short compare to left leg , warm to touch , pulse positive , right hip pain positional per patient but tolerable ,with bucks traction, able to move foot/toes with good peripheral sensation , needs attended, plan of care discussed with patient , pre operative health teaching , what to expect , pain management , rehab , skin care, safety , verbalized understanding.
[2017-02-23] MEDS: FLUTICASONE PROPIONATE 50 mCg/SPRAY 16 GM NS SCH ×2 (09:04→21:04)
[2017-02-23] MEDS: FERROUS SULFATE 325 MG TABLET.DR PO SCH ×3 (09:05→21:00)
[2017-02-23] MEDS: OMEPRAZOLE 20 MG CAPSULE.DR (PriLOSEC) PO SCH (09:05)
[2017-02-23] MEDS: MUPIROCIN 2% TOPICAL OINTMENT 22 GM TP SCH (09:05)
[2017-02-23] MEDS: PREDNISONE 20 MG TABLET PO SCH ×2 (09:05→20:59)
[2017-02-23] MEDS: CARVEDILOL 12.5 MG TABLET (COREG) PO SCH ×2 (09:06→17:17)
[2017-02-23] MEDS: DESMOPRESSIN 0.1 MG TAB (DDAVP) PO SCH (09:06)
[2017-02-23 09:10] VITALS: BP 131/62; PULSE 61; RESP 18; TEMP 98.6; O2SAT 98
[2017-02-23] MEDS: cefTRIAXone 1 GM in D5W 50 ML IV SCH (11:02)
[2017-02-23] MEDS: NACL 0.9% 1,000 ML IV SCH (11:03)
--- NOTE | 2017-02-23 11:30 | NUR ---
Seen and examined by Dr. jacinto with clear urine output , discussed plan of care verbalized understanding..bladder irrigation discontinued and will continue to observe,
[2017-02-23] MEDS: PHENOL/MENTHOL 14.5 MG LOZENGE MM PRN ×2 (11:31→16:17)
[2017-02-23 12:10] VITALS: BP 141/61; PULSE 64; RESP 18; TEMP 97.7; O2SAT 99
--- NOTE | 2017-02-23 13:00 | NUR ---
BT INITIATION:H/H 8.224.8 Consent signed per PATIENT agreeing to administration of blood. Blood has been type and crossmatched. Blood sent from blood bank. Information on unit of blood checked against patient wristband at bedside by two nurses. All information matches. Patient or responsible libertarian informed of potential complications associated with blood transfusion. Informed of possible transfusion reaction symptoms. Aware of need to notify nurse at once of itching, shortness of breath, flushing, feeling of impending doom, or other symptoms not previously present. Vital signs taken within 5 minutes prior to initiation of transfusion. RN will remain with patient for first 15 minutes of transfusion at which time vital signs will be re-assessed.
--- NOTE | 2017-02-23 13:50 | NUR ---
Spoke to Dr. Germain , with order to feed the patient surgery reschedule for 9:30 in the morning , patient was informed and ok with it , still with blood transfusion no sign of transfusion reaction, denies any hip pain unless he moves as verbalized , with good peripheral sensation able to wiggle toes, right leg externally rotated , will continue to monitor.
--- NOTE | 2017-02-23 15:34 | NUR ---
1st unit of PRBC completed, vitals sign stable , no sign of blood transfusion reaction.
[2017-02-23 16:18] VITALS: BP 122/57; PULSE 72; RESP 20; TEMP 98.1; O2SAT 99
--- NOTE | 2017-02-23 16:30 | NUR ---
2nd unit of PRBC will monitor and patient instructed of possible blood transfusion reaction and verbalized understanding , will monitor at the bedside.
[2017-02-23] MEDS: MONTELUKAST 10 MG TABLET PO SCH (17:16)
--- NOTE | 2017-02-23 18:37 | NUR ---
Blood transfusion still infusing no sign of transfusion reaction,tolerates po well,cramer catheter with yellow urine, patient instructed nothing by mouth after midnight for surgery in the morning., verbalized understanding.
[2017-02-23 19:23] VITALS: BP 123/54; PULSE 60; RESP 18; TEMP 99.7; O2SAT 98
--- NOTE | 2017-02-23 19:25 | NUR ---
initial nursing notes: Patient is awake. Patient had just finished receiving blood transfusion. Patient has no blood transfusion reaction.
[2017-02-23] MEDS: TAMSULOSIN HCL 0.4 MG CAP PO SCH (21:02)
--- NOTE | 2017-02-23 21:25 | NUR ---
nursing rounds: Patient watching television. Patient denies of having pain.
--- NOTE | 2017-02-23 23:25 | NUR ---
nursing rounds: Patient is getting ready to go to sleep. Reminded patient that he will be NPO after midnight. Patient verbalized understanding.
[2017-02-23] MEDS: HYDROmorphone 1 MG INJ. 1 MG/ML AMPUL IVP PRN (23:47)
--- NOTE | 2017-02-24 00:45 | NUR ---
ROUNDS PATIENT RESTING COMFORTABLY. NO S/S OF ACUTE DISTRESS NOTED. DIEZ DRAINING PROPERLY. IV PATENT, NO S/S OF INFILTRATION NOTED. BELLO'S TRACTION SET 5LBS, RIGHT LEG. BED IN LOWEST POSITION, BED ALARM SET, CALL LIGHT WITHIN REACH. WILL CONTINUE TO MONITOR.
[2017-02-24 00:46] VITALS: BP 134/64; PULSE 64; RESP 20; TEMP 98.5; O2SAT 97
--- NOTE | 2017-02-24 01:25 | NUR ---
nursing rounds: Patient is asleep. Patient has no shortness of breath.
[2017-02-24 03:22] VITALS: BP 132/69; PULSE 60; RESP 18; TEMP 98.6; O2SAT 95
--- NOTE | 2017-02-24 03:25 | NUR ---
nursing rounds: Patient is sleeping in bed. Patient has no respiratory distress.
[2017-02-24] MEDS: NACL 0.9% 1,000 ML IV SCH ×2 (05:25→13:55)
--- NOTE | 2017-02-24 05:25 | NUR ---
nursing rounds: Patient calmly resting in bed. Call light within patient's reach.
[2017-02-24 08:00] VITALS: BP 137/69; PULSE 77; RESP 18; TEMP 98; O2SAT 95
[2017-02-24] MEDS: CARVEDILOL 12.5 MG TABLET (COREG) PO SCH ×2 (08:00→18:06)
--- NOTE | 2017-02-24 08:00 | NUR ---
OPENING NOTES, RECIEVED PT IN BED, PT IS AAO4X , DENIES PAIN BUT PT STATED HE HAS PAIN ON R HIP WHEN HE MOVES, 5LBS BLELO TRACTION ON ON RIGHT LEG. NO SOB, NO DISTRESS, AFEBRILE. VITALS WNL. CHG BATH GIVEN BYT THIS RN. DIEZ INTACT AND WITH SECURE DEVICE, CLEAR YELLO URINE. CALL LIGHT IN REACH, BED IN LOW POSITION.
--- NOTE | 2017-02-24 08:14 | NUR ---
closing nursing notes: Patient is awake, alert and oriented X 4. Patient is in no acute respiratory distress. No episodes of fall and no injuries throughout the carton wrapper. Provided nursing report to incoming morning shift nurse, DOM Raygoza, at patient's bedside.
[2017-02-24] MEDS: FERROUS SULFATE 325 MG TABLET.DR PO SCH ×3 (09:00→20:20)
[2017-02-24] MEDS: OMEPRAZOLE 20 MG CAPSULE.DR (PriLOSEC) PO SCH (09:00)
[2017-02-24] MEDS: DESMOPRESSIN 0.1 MG TAB (DDAVP) PO SCH (09:00)
[2017-02-24] MEDS: PREDNISONE 20 MG TABLET PO SCH ×2 (09:00→20:20)
[2017-02-24] MEDS ORDERED: POLYMYXIN 500,000/BACIT.10,000 UNITS in NS IRR 1 L IR ONE (09:20)
[2017-02-24] MEDS: FLUTICASONE PROPIONATE 50 mCg/SPRAY 16 GM NS SCH ×2 (09:23→20:21)
--- NOTE | 2017-02-24 10:00 | NUR ---
NOTES; PT IN SURGERY.
--- NOTE | 2017-02-24 11:22 | NUR ---
CARDIOLOGY CONSULT Spoke with Jailyn regarding request for consultation with Dr. Winchester ([phone]) for reason: cardiac clearance for surgery. Dr. Be is currently video control engineer.
--- NOTE | 2017-02-24 12:00 | NUR ---
NOTES, PT IN BED, EATING LUNCH, PT'S SURGERY CANCELLED DUE TO NEEDING CARDIAC CLEARANCE PER DR FRY. NO SOB, NO DISTRESS. BED IN LOW POSITION. DIEZ AT FOOT OF BED, PATENT AND DRAINING WELL. BUCKS TRACTION ON. CALL LIGHT IN REACH. INSTRUCTED TO CALL FOR ASSIST.
--- NOTE | 2017-02-24 14:00 | NUR ---
NOTES, PT IN BED, NO SOB, NO PAIN, NO DISTRESS. BED IN LOW POSITION. DIEZ AT FOOT OF BED, PATENT AND DRAINING WELL. BUCKS TRACTION ON. CALL LIGHT IN REACH. INSTRUCTED TO CALL FOR ASSIST.
[2017-02-24 16:48] VITALS: BP 135/63; PULSE 71; RESP 17; TEMP 98.1; O2SAT 94
--- NOTE | 2017-02-24 17:54 | NUR ---
Seen and examined by for cardiac clearance ,OK for surgery from cardiac point of view , Dr. Germain paged to inform.
[2017-02-24] MEDS: MONTELUKAST 10 MG TABLET PO SCH (18:03)
--- NOTE | 2017-02-24 18:35 | NUR ---
CLOSING NOTES PT REMAINED ALERT AND ORIENTED, C/O OF DISCOMFORT ON R HIP BUT NO MAJOR PAIN, PAIN MED OFFERED AND REFUSED. ALL MEDS OFFERED AND TAKEN.DIEZ INTACT, ON FOOT OF BED, 5 LBS BUCKS TRACTION ON.CALLIGHT IN REACH, BED IN LOW POSITION. PT CLEARED BY DR OSPINA FOR SURGERY AND DR FRY IS AWARE PER BUTTON CUTTING MACHINE OPERATOR SYLVIA. WILL ENDORSE TO NIGHT DOM.
--- NOTE | 2017-02-24 19:54 | NUR ---
Initial Notes Received patient laying in bed, awake, alert, oriented. Vital signs stable. Patient denies any acute distress or pain at this time. Breathing even and unlabored on room air. Right lower extremity to treviño's traction, 5lbs weight hanging freely, toes warm to touch, pulses/sensation present, cap refill normal. Patient repositioned for comfort. IV to left forearm #20, patent/clean/dry, some bruising noted on forearm towards elbow but does not seem related to current IV. Lancaster draining to gravity. Skin tear noted to right forearm, dressing clean/dry/intact. Educated patient on use of call light for assistance and fall precautions, patient verbalized understanding. Call light in hand, fall precautions in place, will continue to monitor.
[2017-02-24 20:00] VITALS: BP 139/65; PULSE 73; RESP 18; TEMP 97.7; O2SAT 95
[2017-02-24] MEDS: TAMSULOSIN HCL 0.4 MG CAP PO SCH (20:20)
--- NOTE | 2017-02-24 22:36 | NUR ---
Rounds and handoff Patient resting in bed, awake. Patient denies any acute distress or pain at this time. Breathing even and unlabored. IV site patent/clean/dry. Lancaster draining yumi urine to gravity. Right leg to Pringle's traction, 5lbs hanging freely, patient tolerating well. Needs addressed. Call light in hand, fall precautions in place. Endorsed care of patient to Zulema FERNANDES.
--- NOTE | 2017-02-24 22:45 | NUR ---
REPORT RECEIVED FOR TRANSITION OF CARE
--- NOTE | 2017-02-25 | NUR ---
ROUNDS PATIENT NPO IN PREPARATION FOR SURGERY SET FOR 0930.
[2017-02-25] MEDS: HYDROmorphone 1 MG INJ. 1 MG/ML AMPUL IVP PRN ×2 (00:20→06:59)
[2017-02-25 00:53] VITALS: BP 128/64; PULSE 62; RESP 18; TEMP 99.6; O2SAT 96
--- NOTE | 2017-02-25 02:45 | NUR ---
ROUNDS PATIENT SLEEPING, VISIBLE RISE AND FALL OF CHEST NOTED. NO S/S OF ACUTE DISTRESS NOTED. DIEZ DRAINING PROPERLY, URINE YELLOW. IV PATENT, NO S/S OF INFILTRATION NOTED. BELLO'S TRACTION SET 5LBS, RIGHT LEG. BED IN LOWEST POSITION, BED ALARM SET, CALL LIGHT WITHIN REACH. WILL CONTINUE TO MONITOR.
[2017-02-25] MEDS: NACL 0.9% 1,000 ML IV SCH ×3 (03:20→22:39)
--- NOTE | 2017-02-25 04:45 | NUR ---
ROUNDS PATIENT SLEEPING, VISIBLE RISE AND FALL OF CHEST NOTED. NO S/S OF ACUTE DISTRESS NOTED. BELLO'S TRACTION SET 5LBS, RIGHT LEG. BED IN LOWEST POSITION, BED ALARM SET, CALL LIGHT WITHIN REACH. WILL CONTINUE TO MONITOR.
[2017-02-25 04:56] VITALS: BP 136/63; PULSE 60; RESP 18; TEMP 99.4; O2SAT 95
--- NOTE | 2017-02-25 06:45 | NUR ---
ROUNDS PATIENT SLEEPING, VISIBLE RISE AND FALL OF CHEST NOTED. NO S/S OF ACUTE DISTRESS NOTED. DIEZ DRAINING PROPERLY, URINE YELLOW. IV PATENT, NO S/S OF INFILTRATION NOTED, IV FLUIDS RUNNING. BELLO'S TRACTION SET 5LBS, RIGHT LEG. BED IN LOWEST POSITION, BED ALARM SET, CALL LIGHT WITHIN REACH. WILL ENDORSE CARE TO DAY SHIFT NURSE.
--- NOTE | 2017-02-25 06:45 | NUR ---
CLOSING NOTES WILL ENDORSE CARE TO DAY SHIFT NURSE
[2017-02-25 07:02] LABS: ANION GAP 1 (5-15); CALCIUM 7.6 mg/dL (8.4-11.0); CHLORIDE 104 mmol/L (98-107); CREATININE 0.64 mg/dL (0.55-1.30); GLUCOSE 123 mg/dL (70-99); SODIUM SERUM 133 mmol/L (136-145); UREA NITROGEN, BLOOD 19 mg/dL (8-21)
[2017-02-25 07:05] LABS: BASOPHILS % (AUTO) 0.2 % (0.0-2.0); EOSINOPHILS % (AUTO) 0.1 % (0.0-4.0); HEMATOCRIT 29.2 % (36-54); HEMOGLOBIN 9.1 g/dL (14.0-18.0); MEAN CORPUSCULAR HEMOGLOBIN 27 pg (27-31); MEAN CORPUSCULAR HGB CONC 31 % (32-36); MEAN CORPUSCULAR VOLUME 88 fL (79.0-98.0); MONOCYTES # (AUTO) 0.6 K/uL (0.0-1.0); MONOCYTES % (AUTO) 5.5 % (1.7-9.3); NEUTROPHILS # (AUTO) 7.6 K/uL (1.8-7.7); NEUTROPHILS % (AUTO) 67.2 % (40.0-70.0); PLATELET COUNT (AUTO) 117 K/uL (130-430); RED BLOOD CELL COUNT(AUTO) 3.34 MIL/uL (4.2-6.2); RED CELL DISTRIBUTION WIDTH 14.5 % (9.0-15.0); WHITE BLOOD COUNT (AUTO) 11.2 K/uL (4.8-10.8)
--- NOTE | 2017-02-25 07:30 | NUR ---
AM ROUNDS PATIENT RESTING IN BED, AWAKE, ALERT AND ORIENTED X4, DENIES PAIN , ASSESSMENT COMPLETE, BUCKS TRACTION IN PLACE ON RIGHT LEG, PATIENT TO HAVE SURGERY TODAY WITH DR BRUNSON, [facility] BATH DONE, EDUCATED THE PATIENT DUST COLLECTOR ATTENDANT LIGHT SYSTEM AND TO CALL FOR ANY ASSISTANCE, PATIENT VERBALIZED UNDERSTANDING AT THIS TIME, BED IN LOWEST POSITION, THREE SIDE RAILS UP, BED ALARM ON, BED CLOSE TO NURSE'S STATION, FALL, ASPIRATION AND ISOLATION PRECAUTIONS IN PLACE, CALL LIGHT PLACED IN THE PATIENT'S HAND.
[2017-02-25 07:36] LABS: IRON (SERUM) 24 mcg/dL (59-158); TOTAL IRON BIND. CAPACITY 157 ug/dL (250-450)
[2017-02-25] MEDS: FERROUS SULFATE 325 MG TABLET.DR PO SCH ×3 (08:12→20:17)
[2017-02-25] MEDS: CARVEDILOL 12.5 MG TABLET (COREG) PO SCH ×2 (08:12→17:26)
[2017-02-25] MEDS: DESMOPRESSIN 0.1 MG TAB (DDAVP) PO SCH (08:12)
[2017-02-25] MEDS: PREDNISONE 20 MG TABLET PO SCH ×2 (08:12→20:17)
--- NOTE | 2017-02-25 08:12 | NUR ---
RN ROUNDS PATIENT RESTING IN BED, DENIES PAIN, EDUCATED ON MEDICATION AND NEED TO TAKE BLOOD PRESSURE MEDICATION PRIOR TO SURGERY EVEN THOUGH PATIENT IS NOTHING BY MOUTH, EDUCATED ON THE MEDICATION AND POTENTIAL SIDE EFFECTS, PATIENT VERBALIZED UNDERSTANDING AND TOLERATED WELL, NO OTHER NEEDS AT THIS TIME, BED IN LOWEST POSITION, THREE SIDE RAILS UP, BED ALARM ON, BED CLOSE TO NURSE'S STATION, FALL, ASPIRATION AND ISOLATION PRECAUTIONS IN PLACE, CALL LIGHT NEXT TO THE PATIENT'S HAND.
[2017-02-25] MEDS: OMEPRAZOLE 20 MG CAPSULE.DR (PriLOSEC) PO SCH (08:13)
[2017-02-25] MEDS: FLUTICASONE PROPIONATE 50 mCg/SPRAY 16 GM NS SCH ×2 (08:13→20:17)
[2017-02-25] MEDS: HEPARIN SODIUM,PORCINE 5000 UNITS/ML VIAL SUBCUT SCH ×2 (08:13→20:17)
[2017-02-25] MEDS ORDERED: LR 1,000 ML IV ONE (09:18)
--- NOTE | 2017-02-25 09:20 | NUR ---
PATIENT OFF THE UNIT TO THE OR, STABLE CONDITION.
[2017-02-25] MEDS ORDERED: POLYMYXIN 500,000/BACIT.10,000 UNITS in NS IRR 1 L IR ONE (09:26)
[2017-02-25] MEDS ORDERED: NALBUPHINE HCL 10 MG/ML AMP IVP PRN (09:30)
[2017-02-25] MEDS ORDERED: fentaNYL CITRATE/PF 100 MCG/2 ML AMP IVP PRN (09:30)
[2017-02-25] MEDS ORDERED: ONDANSETRON HCL 4 MG/2 ML VIAL IVP PRN ×2 (09:30)
[2017-02-25] MEDS ORDERED: ePHEDrine sulfate 50 MG/ML VIAL IVP PRN (09:30)
[2017-02-25] MEDS ORDERED: DIPHENHYDRAMINE INJ 50 MG/ML VIAL IVP PRN (09:30)
[2017-02-25] MEDS ORDERED: NALOXONE HCL 0.4 MG/ML AMP (NARCAN) IVP PRN (09:30)
[2017-02-25 09:57] VITALS: BP 135/68; PULSE 63; RESP 16; TEMP 97; O2SAT 98
[2017-02-25] MEDS ORDERED: TRANEXAMIC ACID 1,000 MG/10 ML VIAL IV ONE ×2 (11:00→14:00)
--- NOTE | 2017-02-25 12:37 | NUR ---
PATIENT BACK ON THE UNIT STABLE CONDITION, WILL CONTINUE TO MONITOR, BED IN LOWEST POSITION, THREE SIDE RAILS UP, BED ALARM ON, FALL, ASPIRATION AND ISOLATION PRECAUTIONS IN PLACE, SURGICAL DRESSING IN PLACE ON RIGHT HIP, CLEAN, DRY AND INTACT, ICE PACK OVER THE DRESSING, CALL LIGHT NEXT TO THE PATIENT'S HAND.
--- NOTE | 2017-02-25 12:40 | NUR ---
NEUROVASCULAR CHECK PATIENT PEDAL PULSES PRESENT ON BLE, NORMAL AND STRONG, PATIENT IS ABLE TO MOVE TOES AND ANKLES BILATERALLY, PATIENT DENIES NUMBNESS OR TINGLING, CAPILLARY REFILL IS LESS THAN 3 SECONDS, PATIENT DENIES PAIN, WILL CONTINUE TO TO MONITOR.
[2017-02-25] MEDS ORDERED: CEFAZOLIN 2 GM IVPB PREMIX 50 ML IV ONE (14:00)
[2017-02-25] MEDS ORDERED: ONDANSETRON HCL 4 MG/2 ML VIAL ONE (14:00)
[2017-02-25] MEDS ORDERED: MIDAZOLAM HCL 5 MG/5 ML VIAL ONE (14:00)
[2017-02-25] MEDS ORDERED: MORPHINE SULFATE 10MG/10ML PF AMP ONE (14:00)
[2017-02-25] MEDS ORDERED: LR 1,000 ML IV.SOLN IV ONE (14:00)
[2017-02-25] MEDS ORDERED: fentaNYL CITRATE/PF 100 MCG/2 ML AMP ONE (14:00)
--- NOTE | 2017-02-25 14:06 | NUR ---
RN ROUNDS PATIENT RESTING IN BED, AWAKE, EATING LUNCH, ASPIRATION PRECAUTIONS IN PLACE, DENIES PAIN, NO OTHER NEEDS AT THIS TIME, BED IN LOWEST POSITION, THREE SIDE RAILS UP, BED ALARM ON, FALL AND ISOLATION PRECAUTIONS IN PLACE, CALL LIGHT NEXT TO THE PATIENT'S HAND, WILL CONTINUE TO MONITOR.
[2017-02-25] MEDS: CEFAZOLIN 1 GM IVPB PREMIX 50 ML IV SCH ×2 (14:41→21:00)
--- NOTE | 2017-02-25 14:51 | NUR ---
RN ROUNDS PATIENT RESTING IN BED, AWAKE, DENIES PAIN, EDUCATED ON MEDICATIONS AND POTENTIAL SIDE EFFECTS, PATIENT VERBALIZED UNDERSTANDING AND TOLERATED WELL, IV ANTIBIOTIC HUNG AND INFUSING WELL, IV SITE IS PATENT WITH NO SIGNS OF INFILTRATION, BED IN LOWEST POSITION, THREE SIDE RAILS UP, BED ALARM ON, BED CLOSE TO NURSE'S STATION, FALL, ASPIRATION AND ISOLATION PRECAUTIONS IN PLACE, CALL LIGHT IN THE PATIENT'S HAND.
[2017-02-25] MEDS: traMADol HCL HCL 50 MG TABLET (ULTRAM) PO PRN (15:45)
--- NOTE | 2017-02-25 15:51 | NUR ---
RN ROUNDS NOTIFIED BY RT THAT PATIENT IS HAVING SOME PAIN, AFTER USING THE INCENTIVE SPIROMETER, PATIENT RESTING IN BED, SAID HE HAS LOWER BACK PAIN 05/28, EDUCATED THE PATIENT ON PAIN MEDICATION AND POTENTIAL SIDE EFFECTS, PATIENT VERBALIZED UNDERSTANDING AND TOLERATED WELL, NO OTHER NEEDS AT THIS TIME, BED IN LOWEST POSITION, THREE SIDE RAILS UP, BED ALARM ON, FALL, ASPIRATION, AND ISOLATION PRECAUTIONS IN PLACE, BED CLOSE TO NURSE'S STATION, CALL LIGHT NEXT TO THE PATIENT'S HAND.
--- NOTE | 2017-02-25 15:55 | NUR ---
INCENTIVE SPIROMETER PATIENT EDUCATED BY RT AND BY NURSE ON HOW, HOW OFTEN AND WHY HE SHOULD USE THE INCENTIVE SPIROMETER, PATIENT VERBALIZED UNDERSTANDING AND ABLE TO GIVE RETURN DEMONSTRATION OF 4000 AT THIS TIME.
[2017-02-25 16:00] VITALS: BP 119/81; PULSE 79
--- NOTE | 2017-02-25 16:43 | NUR ---
NEUROVASCULAR CHECK PATIENT PEDAL PULSES PRESENT ON BLE, NORMAL AND STRONG, PATIENT IS ABLE TO MOVE TOES AND ANKLES BILATERALLY, PATIENT DENIES NUMBNESS OR TINGLING, CAPILLARY REFILL IS LESS THAN 3 SECONDS, PATIENT STATES MILD PAIN, WILL CONTINUE TO TO MONITOR.
[2017-02-25 16:55] VITALS: BP 124/73; PULSE 66; RESP 18; TEMP 97.9; O2SAT 97
[2017-02-25] MEDS: MONTELUKAST 10 MG TABLET PO SCH (17:26)
--- NOTE | 2017-02-25 17:54 | NUR ---
DELIVERED PT'S DINNER TRAY TO HIS ROOM. PT STATED THAT HE IS NOT HUNGRY AT THIS TIME, AND WOULD LIKE US TO HOLD HIS DINNER TRAY UNTIL HE IS READY TO EAT. HE STATED THAT WHEN HE WAS READY HE WILL PRESS HIS CALL LIGHT AND LET THE STAFF KNOW. RN NOTIFIED.
--- NOTE | 2017-02-25 19:00 | NUR ---
CLOSING NOTES PATIENT RESTING IN BED, EYES CLOSED, BREATHING IS EVEN AND UNLABORED, NO SIGNS OF DISTRESS, BED IN LOWEST POSITION, THREE SIDE RAILS UP, BED ALARM ON, BED CLOSE TO NURSE'S STATION, FALL, ASPIRATION, ISOLATION PRECAUTIONS IN PLACE, CALL LIGHT NEXT TO THE PATIENT'S HAND, ALL NEEDS MET, WILL ENDORSE REPORT TO NOC SHIFT NURSE.
[2017-02-25 20:00] VITALS: BP 131/75; PULSE 69; RESP 18; TEMP 97.7; O2SAT 97
--- NOTE | 2017-02-25 20:00 | NUR ---
Initial Notes Received patient resting in bed with eyes closed, easily aroused to name. Patient is drowsy, oriented. Patient denies any acute distress or pain at this time. Vital signs stable. Breathing even and unlabored on room air. IV site patent/clean/dry. Lancaster draining yumi urine to gravity. Surgical incision noted to right hip, surgical dressing clean/dry/intact, adductor pillow in place. Educated patient on use of call light for assistance and fall precautions, patient verbalized understanding. Call light in hand, will continue to monitor.
[2017-02-25] MEDS: TAMSULOSIN HCL 0.4 MG CAP PO SCH (20:17)
--- NOTE | 2017-02-25 22:00 | NUR ---
Rounds Patient resting in bed with eyes closed, easily aroused. Patient denies any acute distress or pain. Breathing even and unlabored. IV site patent/clean/dry. Dressings clean/dry/intact, toes warm to touch, sensations and pulses present. Needs addressed. Call light in hand, fall precautions in place.
[2017-02-26] VITALS (7 sets, daily range): BP systolic 95–132; BP diastolic 51–83; PULSE 52–78; RESP 16–20; TEMP 97.3–100; O2SAT 92–98
--- NOTE | 2017-02-26 | NUR ---
Rounds Patient resting in bed with eyes closed. No acute distress noted, breathing even and unlabored. IV site patent/clean/dry. Call light in hand, fall precautions in place, will continue to monitor.
--- NOTE | 2017-02-26 02:00 | NUR ---
Rounds Patient laying in bed, awake. Patient denies any acute distress or pain at this time. Breathing even and unlabored, IV site patent/clean/dry. Re-educated patient on use of incentive spirometer, patient able to demonstrate usage. Needs addressed, call light in hand. Will continue to monitor.
--- NOTE | 2017-02-26 04:16 | NUR ---
Rounds Patient resting in bed with eyes closed. No acute distress noted, breathing even and unlabored. IV site patent/clean/dry. Call light in hand, will continue to monitor.
--- NOTE | 2017-02-26 06:35 | NUR ---
Closing Notes Patient resting in bed with eyes closed, easily aroused. Patient denies any acute distress or pain at this time. Breathing even and unlabored. IV site patent/clean/dry, no S/S infection/infiltration noted. Lancaster draining yumi urine to gravity. Dressing changed to right forearm. Right hip dressing clean/dry/intact, adductor pillow in place, toes warm to touch, sensations/pulses present. Needs addressed throughout shift. Call light in hand, fall precautions in place. Will continue to monitor for changes and safety, and endorse all patient care/needs to oncoming nurse.
[2017-02-26 07:42] LABS: BASOPHILS # (AUTO) 0.1 K/uL (0.0-0.2); BASOPHILS % (AUTO) 0.4 % (0.0-2.0); HEMOGLOBIN 8.8 g/dL (14.0-18.0); LYMPHOCYTES # (AUTO) 2.7 K/uL (1.0-5.5); MEAN CORPUSCULAR VOLUME 87 fL (79.0-98.0); NEUTROPHILS # (AUTO) 10.6 K/uL (1.8-7.7)
[2017-02-26 07:51] LABS: EOSINOPHILS % (AUTO) 0.2 % (0.0-4.0); HEMATOCRIT 26.4 % (36-54); LYMPHOCYTES % (AUTO) 19.1 % (20.5-51.5); MEAN CORPUSCULAR HEMOGLOBIN 29 pg (27-31); MEAN CORPUSCULAR HGB CONC 33 % (32-36); MONOCYTES # (AUTO) 0.7 K/uL (0.0-1.0); MONOCYTES % (AUTO) 5.3 % (1.7-9.3); PLATELET COUNT (AUTO) 137 K/uL (130-430); RED BLOOD CELL COUNT(AUTO) 3.05 MIL/uL (4.2-6.2); RED CELL DISTRIBUTION WIDTH 14.2 % (9.0-15.0); WHITE BLOOD COUNT (AUTO) 14.1 K/uL (4.8-10.8)
--- NOTE | 2017-02-26 08:00 | NUR ---
OPENING NOTES, RECEIVED PT IN BED, PT AA0X4 , C/O PAIN ON LEFT LEG, PAIN MED GIVEN, NO SOB, NO DISTRESS. LEFT LEG FLOATED ON PILLOW. CALL LIGHT IN REACH, BED IN LOW POSITION. NOTED URINAL WITH YELLOW, CLEAR URINE. INSTRUCTED TO CALL FOR PAIN OR ANY ASSIST NEEDED. Addendum: 02/26/17 at 0941 by Jaret Pierre RN PLEASE DISREGARD THIS NOTES, THIS BELONGS TO ANOTHER PT.
--- NOTE | 2017-02-26 08:00 | NUR ---
OPENING NOTES, RECEIVED PT IN BED, PT AA0X4 , DENIES PAIN. R HIP WOUND DRESSING DRY AND INTACT, NO BLEEDING NOTED. NO SOB, NO DISTRESS. ABDUCTOR PILLOW. CALL LIGHT IN REACH, BED IN LOW POSITION. DIEZ ON FOOT OF BED WITH CLEAR LIGHT JAMES URINE INSTRUCTED TO CALL FOR PAIN OR ANY ASSIST NEEDED
[2017-02-26 08:09] LABS: ANION GAP 4 (5-15); CALCIUM 7.4 mg/dL (8.4-11.0); CHLORIDE 101 mmol/L (98-107); CREATININE 0.86 mg/dL (0.55-1.30); GLUCOSE 138 mg/dL (70-99); POTASSIUM 4.2 mmol/L (3.5-5.1); SODIUM SERUM 134 mmol/L (136-145); UREA NITROGEN, BLOOD 22 mg/dL (8-21)
[2017-02-26] MEDS: FERROUS SULFATE 325 MG TABLET.DR PO SCH ×3 (08:22→20:46)
[2017-02-26] MEDS: OMEPRAZOLE 20 MG CAPSULE.DR (PriLOSEC) PO SCH (08:22)
[2017-02-26] MEDS: PREDNISONE 20 MG TABLET PO SCH ×2 (08:22→20:46)
[2017-02-26] MEDS: CARVEDILOL 12.5 MG TABLET (COREG) PO SCH ×2 (08:22→18:01)
[2017-02-26] MEDS: DESMOPRESSIN 0.1 MG TAB (DDAVP) PO SCH (08:36)
[2017-02-26] MEDS: FLUTICASONE PROPIONATE 50 mCg/SPRAY 16 GM NS SCH ×2 (08:36→20:45)
[2017-02-26] MEDS: HEPARIN SODIUM,PORCINE 5000 UNITS/ML VIAL SUBCUT SCH ×2 (08:39→20:47)
--- NOTE | 2017-02-26 09:02 | NUR ---
DR CARR ROUNDS DR CARR WAS HERE AND EXAMINE PT, MADE AWARE THAT PT HAS EDEMA FROM LOWER BACK AND DOWN TO LEGS
--- NOTE | 2017-02-26 10:00 | NUR ---
NOTES PT IN BED, OFFERED BUT REFUSED PAIN MEDS, STATED ON LY PAIN 2/10 WHEN HE MOVES, NO SOB, NO DISTRESS. CALL LIGHT IN REACH. BED IN LOW POSITION. DIEZ INTACT AND SECURED TO LEFT THIGH, ON FOOT OF BED. INSTRUCTED TO CALL FOR PAIN MED AND ASSIST.
[2017-02-26] MEDS: HYDROmorphone 1 MG INJ. 1 MG/ML AMPUL IVP PRN (10:45)
--- NOTE | 2017-02-26 12:00 | NUR ---
NOTES PT IN BED, PT WORKED WITH PT STARTED TODAY, NO C/O PAIN NO SOB NO DISTRESS. CALL LIGHT IN REACH, BED IN LOW POSITION. DIEZ CATH INTACT AND SECURED TO LEFT LEG, DIEZ ON FOOT OF FEET.
--- NOTE | 2017-02-26 14:00 | NUR ---
NOTES PT IN BED, PT WORKED WITH PT STARTED TODAY, NO C/O PAIN NO SOB NO DISTRESS. CALLIGHT IN REACH, BEDIN LOW POSITION DIEZ CATH INTACT AND SECURED TO LEFT LEG, DIEZ ON FOOT OF FEET.
[2017-02-26] MEDS: NACL 0.9% 1,000 ML IV SCH (15:11)
--- NOTE | 2017-02-26 15:22 | NUR ---
PHYSICAL THERAPY CO-SIGN The Physical Therapy Progress Notes documented by Assembler Wire Mesh Gate have been reviewed. Reviewed/Co-Signed by: Melonie Velazquez, PT Documentation Done by: Jose Henry PTA I concur with the documentation of this HEAD TELLER. Plan: continue PT as per plan of care. Addendum: 02/26/17 at 1523 by Melonie Velazquez PT Amended: Links added.
--- NOTE | 2017-02-26 16:00 | NUR ---
NOTES PT IN BED, PT WORKED WITH PT STARTED TODAY, NO C/O PAIN NO SOB NO DISTRESS. CALLIGHT IN REACH, BEDIN LOW POSITION. DIEZ CATH INTACT AND SECURED TO LEFT LEG, DIEZ ON FOOT OF FEET. INSTRUCTED TO CALL FOR ASSIST AND PAIN MEDS. Addendum: 02/26/17 at 1900 by Jaret Pierre RN CLOSING NOTES, PT REMAINED STABLE, NO C/O PAIN THIS TIME, NO SOB. EATING DINNER. CALL LIGHT IN REACH, BED IN LOW POSITION. R HIP SURGERY SITE DRESSING INTACT. WILL ENDORSE TO NIGHT RN.
[2017-02-26] MEDS: MONTELUKAST 10 MG TABLET PO SCH (18:00)
--- NOTE | 2017-02-26 18:30 | NUR ---
CLOSING NOTES, PT REMAINED STABLE, NO C/O PAIN THIS TIME, NO SOB. EATING DINNER. CALL LIGHT IN REACH, BED IN LOW POSITION. R HIP SURGERY SITE DRESSING INTACT. WILL ENDORSE TO NIGHT RN.
--- NOTE | 2017-02-26 20:00 | NUR ---
Opening Note Report received from the day shift RN. Patient is in stable condition. He is wake and alert currently resting in bed. 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 IV is on the left arm running NS @ 75ml/hr. Lancaster catheter is to gravity draining yumi urine. Occlusive dressing is on the right hip. Dressing is dry and intact. Abducter pillow is in place. SCDS are on. Call light is within reach. Bed is in low position. Will continue to monitor.
[2017-02-26] MEDS: TAMSULOSIN HCL 0.4 MG CAP PO SCH (20:46)
--- NOTE | 2017-02-26 22:00 | NUR ---
Rounds Patient is currently resting in bed. No signs of distress noted. Call light is within reach. Bed is visible from the nurses station.
--- NOTE | 2017-02-27 | NUR ---
Rounds Patient is resting in bed. Call light is within reach.
--- NOTE | 2017-02-27 00:38 | NUR ---
ROUNDS PATIENT IS IN BED RESTING AND WATCHING TV. WILL CONTINUE TO MONITOR.
--- NOTE | 2017-02-27 02:05 | NUR ---
Rounds Patient is sleeping in bed. No signs of distress noted. Call light is within reach.
[2017-02-27] MEDS: NACL 0.9% 1,000 ML IV SCH ×2 (03:25→18:02)
--- NOTE | 2017-02-27 04:18 | NUR ---
Rounds Patient is currently resting in bed. Stated having 0/10 pain on the right hip.
[2017-02-27 05:10] VITALS: BP 126/63; PULSE 66; RESP 18; TEMP 99; O2SAT 98
[2017-02-27 06:09] LABS: FERRITIN 104 ng/mL (30-400)
--- NOTE | 2017-02-27 06:24 | NUR ---
Closing Note Patient is in stable condition. No complaints of pain throughout the shift. IV is on the left arm 22g running NS@75. Lancaster catheter is to gravity draining yumi urine. Patient is using the IS up to 1500. Right hip dressing is dry and intact. 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 Will give report to the oncoming nurse.
[2017-02-27 06:37] LABS: BASOPHILS % (AUTO) 0.2 % (0.0-2.0); EOSINOPHILS % (AUTO) 0.1 % (0.0-4.0); HEMOGLOBIN 8.4 g/dL (14.0-18.0); LYMPHOCYTES # (AUTO) 2.6 K/uL (1.0-5.5); LYMPHOCYTES % (AUTO) 22.1 % (20.5-51.5); MEAN CORPUSCULAR HEMOGLOBIN 28 pg (27-31); MEAN CORPUSCULAR HGB CONC 32 % (32-36); MEAN CORPUSCULAR VOLUME 88 fL (79.0-98.0); MONOCYTES # (AUTO) 0.6 K/uL (0.0-1.0); MONOCYTES % (AUTO) 5.3 % (1.7-9.3); NEUTROPHILS # (AUTO) 8.4 K/uL (1.8-7.7); NEUTROPHILS % (AUTO) 72.3 % (40.0-70.0); PLATELET COUNT (AUTO) 104 K/uL (130-430); RED BLOOD CELL COUNT(AUTO) 2.95 MIL/uL (4.2-6.2); RED CELL DISTRIBUTION WIDTH 14.5 % (9.0-15.0); WHITE BLOOD COUNT (AUTO) 11.6 K/uL (4.8-10.8)
[2017-02-27 07:33] LABS: ANION GAP 4 (5-15); CALCIUM 7.7 mg/dL (8.4-11.0); CHLORIDE 102 mmol/L (98-107); CREATININE 0.79 mg/dL (0.55-1.30); GLUCOSE 172 mg/dL (70-99); POTASSIUM 4.3 mmol/L (3.5-5.1); SODIUM SERUM 133 mmol/L (136-145); UREA NITROGEN, BLOOD 19 mg/dL (8-21)
[2017-02-27 07:50] VITALS: BP 130/64; PULSE 66; RESP 18; TEMP 97.3; O2SAT 95
--- NOTE | 2017-02-27 08:00 | NUR ---
OPENING NOTES, RECEIVED PT IN BED, PT AA0X4 , DENIES PAIN. R HIP WOUND DRESSING DRY AND INTACT, NO BLEEDING NOTED. NO SOB, NO DISTRESS. ABDUCTOR PILLOW ON. CALL LIGHT IN REACH, BED IN LOW POSITION. DIEZ ON FOOT OF BED WITH CLEAR LIGHT JAMES URINE INSTRUCTED TO CALL FOR PAIN OR ANY ASSIST NEEDED ANYTIME.
[2017-02-27] MEDS: FERROUS SULFATE 325 MG TABLET.DR PO SCH ×3 (09:47→22:04)
[2017-02-27] MEDS: OMEPRAZOLE 20 MG CAPSULE.DR (PriLOSEC) PO SCH (09:47)
[2017-02-27] MEDS: CARVEDILOL 12.5 MG TABLET (COREG) PO SCH ×2 (09:47→17:55)
[2017-02-27] MEDS: FLUTICASONE PROPIONATE 50 mCg/SPRAY 16 GM NS SCH ×2 (09:47→21:00)
[2017-02-27] MEDS: PREDNISONE 20 MG TABLET PO SCH ×2 (09:47→22:04)
[2017-02-27] MEDS: DESMOPRESSIN 0.1 MG TAB (DDAVP) PO SCH (09:47)
[2017-02-27] MEDS: HEPARIN SODIUM,PORCINE 5000 UNITS/ML VIAL SUBCUT SCH ×2 (09:53→22:07)
--- NOTE | 2017-02-27 10:00 | NUR ---
NOTES, PT SITTING ON CHAIR , DENIES PAIN. R HIP WOUND DRESSING DRY AND INTACT, NO BLEEDING NOTED. NO SOB, NO DISTRESS. CALL LIGHT IN REACH, BED IN LOW POSITION. DIEZ ON FOOT OF BED WITH CLEAR LIGHT JAMES URINE INSTRUCTED TO CALL FOR PAIN OR ANY ASSIST NEEDED ANYTIME.
[2017-02-27 11:29] VITALS: BP 124/56; PULSE 60; RESP 19; TEMP 97.6; O2SAT 97
--- NOTE | 2017-02-27 12:00 | NUR ---
NOTES, PT IN BED, DENIES PAIN. R HIP WOUND DRESSING DRY AND INTACT, NO SOB, NO DISTRESS. ABDUCTOR PILLOW. CALL LIGHT IN REACH, BED IN LOW POSITION. DIEZ ON FOOT OF BED. INSTRUCTED TO CALL FOR PAIN OR ANY ASSIST NEEDED ANYTIME.
--- NOTE | 2017-02-27 14:59 | NUR ---
PHYSICAL THERAPY CO-SIGN The Physical Therapy Progress Notes documented by Jute Bag Clipper have been reviewed. I CONCUR WITH AM/PM FISH INSPECTOR NOTE; CONT PER TX PLAN Reviewed/Co-Signed by: Molly Torres PT Documentation Done by: JAYLEN NGO FISH INSPECTOR Addendum: 02/27/17 at 1500 by Molly Torres PT Amended: Links added.
[2017-02-27 15:24] VITALS: BP 129/64; PULSE 73; RESP 16; TEMP 96.7; O2SAT 100
--- NOTE | 2017-02-27 16:00 | NUR ---
NOTES, PT IN BED, DENIES PAIN. NO SOB, NO DISTRESS. ABDUCTOR PILLOW. CALL LIGHT IN REACH, BED IN LOW POSITION. DIEZ ON FOOT OF BED. INSTRUCTED TO CALL FOR PAIN OR ANY ASSIST NEEDED ANYTIME. NEW IV ACCESS STARTED ON R FORE ARM.
[2017-02-27] MEDS: POLYETHYLENE GLYCOL 3350, 17 GM/ POWD.PACK PO SCH (16:15)
[2017-02-27] MEDS ORDERED: HYDROcodone/ACETAMIN 10-325 MG TAB PO PRN (16:15)
[2017-02-27] MEDS ORDERED: BISACODYL 10 MG/SUPPOSITORY RC PRN (16:15)
[2017-02-27] MEDS ORDERED: MILK OF MAGNESIA 30 ML UDC PO PRN (16:15)
[2017-02-27] MEDS: MONTELUKAST 10 MG TABLET PO SCH (17:55)
--- NOTE | 2017-02-27 18:20 | NUR ---
NOTES, PT IN BED, DENIES PAIN. R HIP WOUND DRESSING DRY AND INTACT, NO SOB, NO DISTRESS. ABDUCTOR PILLOW. CALL LIGHT IN REACH, BED IN LOW POSITION. DIEZ ON FOOT OF BED. INSTRUCTED TO CALL FOR PAIN OR ANY ASSIST NEEDED ANYTIME. ALL PM MED OFFERED AND TAKEN BY PT.
--- NOTE | 2017-02-27 18:46 | NUR ---
MIRALAX REQUESTED FROM PHARMACIST BUT NOT SENT TO UNIT UNTIL NOW. WILL ENDORSE TO NIGHT RN.
[2017-02-27 20:05] VITALS: BP 128/62; PULSE 62; RESP 15; TEMP 98.5; O2SAT 96
--- NOTE | 2017-02-27 20:10 | NUR ---
OPENING NOTES PATIENT IS IN BED RESTING. NO SIGNS OF DISTRESS. BREATHING IS NON LABORED. VITAL SIGNS ARE STABLE. DRESSING TO THE RIGHT HIP IS NOTED AND IS CLEAN DRY AND INTACT. ABDUCTOR PILLOW IS NOTED AND IS ON. PATIENT HAS NO COMPLAINTS OF. IV AND DIEZ CATHETER ARE NOTED AND ARE PATENT. PATIENT HAS NO COMPLAINTS OF PAIN. PATIENT INSTRUCTED TO CALL FOR ASSISTANCE. SAFETY MEASURES ARE IN PLACE. CALL LIGHT IS WITHIN REACH. WILL CONTINUE TO MONITOR.
[2017-02-27] MEDS: TAMSULOSIN HCL 0.4 MG CAP PO SCH (22:04)
[2017-02-27] MEDS: DOCUSATE SODIUM 100 MG CAPSULE PO SCH (22:05)
--- NOTE | 2017-02-27 22:15 | NUR ---
ROUNDS PATIENT WAS GIVEN APPLE JUICE.
[2017-02-27 23:48] VITALS: BP 114/67; PULSE 60; RESP 16; TEMP 98.3; O2SAT 97
--- NOTE | 2017-02-28 02:33 | NUR ---
KHADRA CARE PATIENT HAD A BOWEL MOVEMENT. KHADRA CARE WAS PERFORMED. PATIENT TOLERATED IT WELL.
[2017-02-28 04:30] VITALS: BP 123/52; PULSE 62; RESP 16; TEMP 98.3; O2SAT 97
--- NOTE | 2017-02-28 04:50 | NUR ---
ROUNDS PATIENT IS IN BED SLEEPING. NO SIGNS OF DISTRESS. BREATHING IS NON LABORED. WILL CONTINUE TO MONITOR.
--- NOTE | 2017-02-28 06:57 | NUR ---
CLOSING NOTES PATIENT IS IN BED SLEEPING. NO SIGNS OF DISTRESS. BREATHING IS NON LABORED. IV AND DIEZ CATHETER ARE PATENT AND SHOW NO SIGNS OF COMPLICATIONS. WILL ENDORSE ALL CARE TO THE MORNING NURSE.
[2017-02-28 07:01] LABS: BASOPHILS % (AUTO) 0.1 % (0.0-2.0); EOSINOPHILS % (AUTO) 0.2 % (0.0-4.0); HEMATOCRIT 25.1 % (36-54); HEMOGLOBIN 8.1 g/dL (14.0-18.0); LYMPHOCYTES % (AUTO) 19.1 % (20.5-51.5); MEAN CORPUSCULAR HEMOGLOBIN 29 pg (27-31); MEAN CORPUSCULAR HGB CONC 33 % (32-36); MEAN CORPUSCULAR VOLUME 88 fL (79.0-98.0); MONOCYTES # (AUTO) 0.3 K/uL (0.0-1.0); MONOCYTES % (AUTO) 3.4 % (1.7-9.3); NEUTROPHILS % (AUTO) 77.2 % (40.0-70.0); PLATELET COUNT (AUTO) 99 K/uL (130-430); RED BLOOD CELL COUNT(AUTO) 2.84 MIL/uL (4.2-6.2); RED CELL DISTRIBUTION WIDTH 14.1 % (9.0-15.0); WHITE BLOOD COUNT (AUTO) 10.3 K/uL (4.8-10.8)
[2017-02-28 07:17] LABS: ANION GAP 4 (5-15); CALCIUM 7.6 mg/dL (8.4-11.0); CHLORIDE 104 mmol/L (98-107); CREATININE 0.64 mg/dL (0.55-1.30); GLUCOSE 119 mg/dL (70-99); POTASSIUM 4.1 mmol/L (3.5-5.1); SODIUM SERUM 135 mmol/L (136-145); UREA NITROGEN, BLOOD 17 mg/dL (8-21)
[2017-02-28] MEDS: CARVEDILOL 12.5 MG TABLET (COREG) PO SCH (08:00)
--- NOTE | 2017-02-28 08:00 | NUR ---
Initial Notes Patient A/O x4. Respirations even and unlabored. IV access patent. Patient denies discomfort at this time. Dressing to right hip clean dry intact. Lancaster catheter secured and draining to gravity.Patient able to eat independently. Fall and safety precautions in place. Encouraged patient to use call light for assistance.
[2017-02-28] MEDS: NACL 0.9% 1,000 ML IV SCH (08:05)
[2017-02-28] MEDS: FLUTICASONE PROPIONATE 50 mCg/SPRAY 16 GM NS SCH (08:44)
[2017-02-28] MEDS: OMEPRAZOLE 20 MG CAPSULE.DR (PriLOSEC) PO SCH (08:44)
[2017-02-28] MEDS: POLYETHYLENE GLYCOL 3350, 17 GM/ POWD.PACK PO SCH (08:44)
[2017-02-28] MEDS: DESMOPRESSIN 0.1 MG TAB (DDAVP) PO SCH (08:51)
[2017-02-28] MEDS: FERROUS SULFATE 325 MG TABLET.DR PO SCH (08:51)
[2017-02-28] MEDS: DOCUSATE SODIUM 100 MG CAPSULE PO SCH (08:51)
[2017-02-28] MEDS: PREDNISONE 20 MG TABLET PO SCH (08:51)
[2017-02-28] MEDS: HEPARIN SODIUM,PORCINE 5000 UNITS/ML VIAL SUBCUT SCH (08:56)
--- NOTE | 2017-02-28 10:35 | NUR ---
DISCHARGE PLANNING Faxed SNF referral to [facility] [phone] [phone] for possible discharge back to [facility] today. Will follow up. Addendum: 02/28/17 at 1154 by Serena Lei DP Spoke with Jordan in admitting at [facility] patient assigned to room 19A RN to report [phone] bed available anytime. DOM Nagel made aware. Spoke with patient cousin William [phone] who was agreeable with patient discharge back to SNF today. Called [facility] ambulance [phone] spoke with Benito valencia S transport picker tender 4pm. Placed transportation packet in nurse station.
[2017-02-28 12:00] VITALS: BP 119/56; PULSE 60; RESP 20; TEMP 97.8; O2SAT 97
--- NOTE | 2017-02-28 12:52 | NUR ---
Notes Per Doctor Dc, patient can be transferred to SNF and cramer catheter to remain in place.
[2017-02-28 13:00] VITALS: BP 105/57; PULSE 63
[2017-02-28 15:44] VITALS: BP 149/78; PULSE 85; RESP 20; TEMP 98.2; O2SAT 97
--- NOTE | 2017-02-28 16:05 | NUR ---
PT TRANSFERRED Report given to Carmen at [facility]. Transfer packet with Transfer Orders and Medication Reconciliation form given to EMT with report. Exitcare provided. [facility] ID band removed, replaced with ID band with pt's name and . IV catheter removed, intact and dressing applied, no active bleeding. All belongings sent with patient. Patient left floor via gurney escorted by EMT in no distress.
[2017-02-28 17:43] VITALS: BP 148/78; PULSE 85; RESP 20; TEMP 98.2; O2SAT 98
== END 2017-02-28 16:05 | DRG 853 ==
LOC: SED 18:06 → STU 19:52 → SMU 02-20 20:10
PROVIDERS: ADMIT Internal Medicine; ATTEND Internal Medicine
PROC: 30233N1 Transfusion of Nonautologous Red Blood Cells into Peripheral Vein, Percutaneous Approach (ICD-10-PCS; principal; 2017-02-17)
PROC: 0SRR0JA Replacement of Right Hip Joint, Femoral Surface with Synthetic Substitute, Uncemented, Open Approach (ICD-10-PCS; 2017-02-25)
DX: A41.9 Sepsis, unspecified organism (principal); E43 Unspecified severe protein-calorie malnutrition; N17.0 Acute kidney failure with tubular necrosis; D62 Acute posthemorrhagic anemia; C91.10 Chronic lymphocytic leukemia of B-cell type not having achieved remission; E87.1 Hypo-osmolality and hyponatremia; N13.8 Other obstructive and reflux uropathy; N39.0 Urinary tract infection, site not specified; I42.9 Cardiomyopathy, unspecified; M84.551A Pathological fracture in neoplastic disease, right femur, initial encounter for fracture; N40.1 Benign prostatic hyperplasia with lower urinary tract symptoms; I25.10 Atherosclerotic heart disease of native coronary artery without angina pectoris; I48.2 Chronic atrial fibrillation; I50.9 Heart failure, unspecified; Z79.01 Long term (current) use of anticoagulants; Z79.899 Other long term (current) drug therapy; Z80.42 Family history of malignant neoplasm of prostate; Z87.891 Personal history of nicotine dependence; Z87.01 Personal history of pneumonia (recurrent); Z95.810 Presence of automatic (implantable) cardiac defibrillator; Z68.26 Body mass index [BMI] 26.0-26.9, adult
CPT/HCPCS: 36415; 71010; 72170-TC; 73502; 73552; 80048; 80053; 81000-TC; 82607; 82728; 83540-TC; 83550-TC; 83605; 85018-TC; 85025; 85384-TC; 85610-TC; 85730-TC; 86886; 86900; 86901; 86920; 87040-TC; 87081; 87086; 88305; 88311; 93005; 93306; 94010; 96361; 96365; 97110-GP; 97116-GP; 97530-GP; 99291; C1776; J0690; J0696; J1170; J1644; J2250; J2274; J2405; J3010; J3480; J3490; J7030; J7040; J7042; J7050; J7060; J7120; J7512; P9021; S0017

== ENCOUNTER 2017-05-14 12:13 | Inpatient (IN) | payer OTHER, MEDICARE ==
[~2017-05-14] VITALS: Ht 188 cm; Wt 93.9 kg
[~2017-05-14 12:13] MED LIST changes: +ACET325T53 PO; +DULR10 RC; +FERR-57 PO; +FLUT16SP16 NS; +MAGN400O4 PO; +MONT10TA25 PO; +NA P118E RC; +PRED20TA PO; +TAMS-11 PO; +TRAM50TA92 PO
[2017-05-14] MEDS ORDERED: NS 500 ML IV SCH (12:18)
[2017-05-14 12:38] VITALS: BP_SYST 99
[2017-05-14 13:13] LABS: LYMPHOCYTES # (AUTO) 2.7 K/uL (1.0-5.5); MEAN CORPUSCULAR HEMOGLOBIN 29 pg (27-31); MONOCYTES # (AUTO) 0.7 K/uL (0.0-1.0); WHITE BLOOD COUNT (AUTO) 8.5 K/uL (4.8-10.8)
[2017-05-14 13:22] LABS: ALANINE AMINOTRANSFERASE 49 U/L (12-78); ALBUMIN 2.8 g/dL (3.4-4.8); ANION GAP 7 (5-15); ASPARTATE AMINOTRANSFERASE 23 U/L (10-37); BASOPHILS % (AUTO) 0.4 % (0.0-2.0); CALCIUM 8.9 mg/dL (8.4-11.0); CHLORIDE 102 mmol/L (98-107); CREATININE 0.82 mg/dL (0.55-1.30); EOSINOPHILS # (AUTO) 0.1 K/uL (0.0-0.4); EOSINOPHILS % (AUTO) 0.8 % (0.0-4.0); GLUCOSE 114 mg/dL (70-99); HEMATOCRIT 36.7 % (36-54); HEMOGLOBIN 12.1 g/dL (14.0-18.0); LYMPHOCYTES % (AUTO) 31.8 % (20.5-51.5); MEAN CORPUSCULAR HGB CONC 33 % (32-36); MEAN CORPUSCULAR VOLUME 89 fL (79.0-98.0); MONOCYTES % (AUTO) 8.5 % (1.7-9.3); NEUTROPHILS % (AUTO) 58.5 % (40.0-70.0); PLATELET COUNT (AUTO) 110 K/uL (130-430); POTASSIUM 4.1 mmol/L (3.5-5.1); RED BLOOD CELL COUNT(AUTO) 4.11 MIL/uL (4.2-6.2); RED CELL DISTRIBUTION WIDTH 19.1 % (9.0-15.0); SODIUM SERUM 137 mmol/L (136-145); TOTAL BILIRUBIN 0.4 mg/dL (0.0-1.0); TOTAL PROTEIN, SERUM 5.9 g/dL (6.4-8.3); UREA NITROGEN, BLOOD 26 mg/dL (8-21)
[2017-05-14 13:39] LABS: PROTHROMBIN TIME 10.4 SECS (9.5-12.5)
[2017-05-14] MEDS ORDERED: ASPIRIN 81 MG TAB.CHEW PO ONE (13:45)
[2017-05-14 15:11] LABS: BILIRUBIN,URINE NEGATIVE (NEGATIVE); BLOOD, URINE 3+ (NEGATIVE); CLARITY/URINE CLOUDY (CLEAR); GLUCOSE,URINE NEGATIVE (NEGATIVE); KETONES,URINE NEGATIVE (NEGATIVE); LEUKOCYTE ESTERASE ,URINE 3+ (NEGATIVE); NITRITE, URINE POSITIVE (NEGATIVE); PH,URINE 8.5 (5.0-8.0); PROTEIN URINE 3+ (NEGATIVE); UROBILINOGEN,URINE 0.2 (0.2-1.0)
[2017-05-14 15:15] LABS: COLOR,URINE RED (YELLOW)
[2017-05-14 15:48] LABS: BACTERIA,URINE MANY /HPF (None Seen); RBC,URINE >100 /HPF (0-3)
[2017-05-14 15:49] LABS: MUCUS,URINE None Seen /LPF (None Seen); TRIPLE PHOSPHATE CRYSTAL,UR 30-50 /HPF (None Seen)
[2017-05-14] MEDS ORDERED: INSULIN REGULAR, HUMAN 100 UNITS/ML, 10 ML VIAL (novoLIN R) SUBCUT PRN (16:15)
[2017-05-14] MEDS ORDERED: ACETAMINOPHEN 325 MG TABLET PO PRN ×2 (16:15)
[2017-05-14] MEDS ORDERED: BISACODYL 10 MG/SUPPOSITORY RC PRN ×2 (16:15→21:30)
[2017-05-14] MEDS ORDERED: DEXTROSE 50% JECT 50 ML DISP.SYRIN IVP PRN (16:15)
[2017-05-14] MEDS ORDERED: MORPHINE 2 MG/ML INJ. SYRINGE IVP PRN (16:15)
[2017-05-14] MEDS ORDERED: ACETAMINOPHEN 500 MG TABLET PO SCH (16:15)
[2017-05-14] MEDS ORDERED: traMADol HCL HCL 50 MG TABLET (ULTRAM) PO PRN (16:15)
[2017-05-14 17:10] VITALS: BP_SYST 129
[2017-05-14 17:45] VITALS: BP_SYST 129
[2017-05-14] MEDS ORDERED: VANCOMYCIN HCL 1,000 MG in NS 250 ML IV SCH (17:45)
[2017-05-14] MEDS ORDERED: PIPERACILLIN/TAZO 3.375/DEX-IS 50 ML IV SCH (18:00)
[2017-05-14] MEDS ORDERED: MONTELUKAST 10 MG TABLET PO SCH (18:00)
[2017-05-14] MEDS ORDERED: CARVEDILOL 12.5 MG TABLET (COREG) PO SCH (18:00)
[2017-05-14 19:30] VITALS: BP_SYST 126
[2017-05-14] MEDS ORDERED: PREDNISONE 20 MG TABLET PO SCH (21:00)
[2017-05-14] MEDS ORDERED: FLUTICASONE PROPIONATE 50 mCg/SPRAY 16 GM NS SCH (21:00)
[2017-05-14] MEDS ORDERED: TAMSULOSIN HCL 0.4 MG CAP PO SCH (21:00)
[2017-05-14] MEDS ORDERED: ACETAMINOPHEN 650 MG/20.3 ML UDC PO PRN (21:30)
[2017-05-14] MEDS ORDERED: MILK OF MAGNESIA 30 ML UDC PO PRN (21:30)
[2017-05-14] MEDS ORDERED: CARVEDILOL 12.5 MG TABLET (COREG) PO ONE (22:15)
[2017-05-14] MEDS ORDERED: cefTRIAXone 1 GM IVPB PREMIX 50 ML IV ONE (22:45)
[2017-05-14] MEDS ORDERED: HEPARIN SODIUM,PORCINE 5000 UNITS/ML VIAL SUBCUT ONE (23:45)
[2017-05-14] MEDS ORDERED: TAMSULOSIN HCL 0.4 MG CAP PO ONE (23:45)
[2017-05-14] MEDS ORDERED: PREDNISONE 20 MG TABLET PO ONE (23:45)
[2017-05-15] VITALS: BP_SYST 116
[2017-05-15] MEDS: CARVEDILOL 12.5 MG TABLET (COREG) PO SCH ×3 (00:13→21:06)
[2017-05-15] MEDS: TAMSULOSIN HCL 0.4 MG CAP PO SCH ×2 (00:13→21:06)
[2017-05-15] MEDS: PREDNISONE 20 MG TABLET PO SCH ×3 (00:14→21:06)
[2017-05-15] MEDS: HEPARIN SODIUM,PORCINE 5000 UNITS/ML VIAL SUBCUT SCH ×2 (00:14→09:00)
[2017-05-15] MEDS ORDERED: cefTRIAXone 1 GM IVPB PREMIX 50 ML IV ONE (01:01)
[2017-05-15 04:00] VITALS: BP_SYST 127
[2017-05-15 07:48] VITALS: BP_SYST 118
[2017-05-15] MEDS ORDERED: IOHEXOL 100 ML IV ONE (08:55)
[2017-05-15] MEDS ORDERED: LISINOPRIL 5 MG TABLET PO SCH ×2 (09:00)
[2017-05-15] MEDS ORDERED: OMEPRAZOLE 20 MG CAPSULE.DR (PriLOSEC) PO SCH (09:00)
[2017-05-15] MEDS: POLYETHYLENE GLYCOL 3350, 17 GM/ POWD.PACK PO SCH (09:25)
[2017-05-15] MEDS: OMEPRAZOLE 20 MG CAPSULE.DR (PriLOSEC) PO SCH (09:25)
[2017-05-15] MEDS: FERROUS SULFATE 325 MG TABLET.DR PO SCH ×3 (09:26→21:06)
[2017-05-15] MEDS: ASCORBIC ACID 500 MG TABLET PO SCH (09:26)
[2017-05-15] MEDS: DOCUSATE SODIUM 100 MG CAPSULE PO SCH ×2 (09:26→21:06)
[2017-05-15] MEDS: FUROSEMIDE 20 MG TABLET PO SCH (09:27)
[2017-05-15] MEDS: POTASSIUM CHLORIDE 10 MEQ TAB.PRT.SR PO SCH (09:27)
[2017-05-15] MEDS: FLUTICASONE PROPIONATE 50 mCg/SPRAY 16 GM NS SCH ×2 (10:30→21:07)
[2017-05-15 12:01] VITALS: BP_SYST 111
[2017-05-15 16:00] VITALS: BP_SYST 157
[2017-05-15] MEDS: MONTELUKAST 10 MG TABLET PO SCH (17:05)
[2017-05-15] MEDS ORDERED: COMMUNICATION ORDER XX ONE (18:00)
[2017-05-15 20:00] VITALS: BP_SYST 124
[2017-05-15] MEDS: APIXABAN 2.5 MG TABLET PO SCH (21:05)
[2017-05-15] MEDS: cefTRIAXone 1 GM IVPB PREMIX 50 ML IV SCH (21:07)
[2017-05-16] VITALS: BP_SYST 124
[2017-05-16 04:00] VITALS: BP_SYST 119
[2017-05-16 07:40] LABS: BASOPHILS % (AUTO) 0.5 % (0.0-2.0); EOSINOPHILS % (AUTO) 0.2 % (0.0-4.0); HEMATOCRIT 35.3 % (36-54); HEMOGLOBIN 11.4 g/dL (14.0-18.0); LYMPHOCYTES # (AUTO) 3.2 K/uL (1.0-5.5); LYMPHOCYTES % (AUTO) 44.2 % (20.5-51.5); MEAN CORPUSCULAR HEMOGLOBIN 29 pg (27-31); MEAN CORPUSCULAR HGB CONC 32 % (32-36); MEAN CORPUSCULAR VOLUME 90 fL (79.0-98.0); MONOCYTES # (AUTO) 0.5 K/uL (0.0-1.0); MONOCYTES % (AUTO) 6.4 % (1.7-9.3); NEUTROPHILS # (AUTO) 3.6 K/uL (1.8-7.7); NEUTROPHILS % (AUTO) 48.7 % (40.0-70.0); RED BLOOD CELL COUNT(AUTO) 3.92 MIL/uL (4.2-6.2); RED CELL DISTRIBUTION WIDTH 19.4 % (9.0-15.0); WHITE BLOOD COUNT (AUTO) 7.3 K/uL (4.8-10.8)
[2017-05-16] MEDS ORDERED: IMBRUVICA 140 MG PO SCH (09:00)
[2017-05-16 10:07] LABS: PLATELET COUNT (AUTO) 96 K/uL (130-430)
[2017-05-16] MEDS: OMEPRAZOLE 20 MG CAPSULE.DR (PriLOSEC) PO SCH (10:38)
[2017-05-16] MEDS: DOCUSATE SODIUM 100 MG CAPSULE PO SCH ×2 (10:38→21:32)
[2017-05-16] MEDS: APIXABAN 2.5 MG TABLET PO SCH ×2 (10:38→21:32)
[2017-05-16] MEDS: FERROUS SULFATE 325 MG TABLET.DR PO SCH ×3 (10:38→21:32)
[2017-05-16] MEDS: POTASSIUM CHLORIDE 10 MEQ TAB.PRT.SR PO SCH (10:39)
[2017-05-16] MEDS: PREDNISONE 20 MG TABLET PO SCH ×2 (10:39→21:32)
[2017-05-16] MEDS: ASCORBIC ACID 500 MG TABLET PO SCH (10:40)
[2017-05-16] MEDS: FLUTICASONE PROPIONATE 50 mCg/SPRAY 16 GM NS SCH ×2 (10:41→21:33)
[2017-05-16] MEDS: POLYETHYLENE GLYCOL 3350, 17 GM/ POWD.PACK PO SCH (10:41)
[2017-05-16] MEDS: CARVEDILOL 12.5 MG TABLET (COREG) PO SCH ×2 (10:41→21:39)
[2017-05-16] MEDS: FUROSEMIDE 20 MG TABLET PO SCH (10:41)
[2017-05-16 12:00] VITALS: BP_SYST 132
[2017-05-16] MEDS: MONTELUKAST 10 MG TABLET PO SCH (18:27)
[2017-05-16] MEDS: IMBRUVICA 140 MG PO SCH (18:28)
[2017-05-16 18:32] VITALS: BP_SYST 129
[2017-05-16 20:30] VITALS: BP_SYST 117
[2017-05-16] MEDS: cefTRIAXone 1 GM IVPB PREMIX 50 ML IV SCH (21:32)
[2017-05-16] MEDS: TAMSULOSIN HCL 0.4 MG CAP PO SCH (21:32)
[2017-05-16] MEDS: MUPIROCIN 2% TOPICAL OINTMENT 22 GM TP SCH (21:40)
[2017-05-17 00:18] VITALS: BP_SYST 141
[2017-05-17 04:21] VITALS: BP_SYST 138
[2017-05-17 07:24] LABS: BASOPHILS % (AUTO) 0.3 % (0.0-2.0); EOSINOPHILS % (AUTO) 0.1 % (0.0-4.0); HEMATOCRIT 37.9 % (36-54); HEMOGLOBIN 12.5 g/dL (14.0-18.0); LYMPHOCYTES # (AUTO) 3.6 K/uL (1.0-5.5); LYMPHOCYTES % (AUTO) 45.5 % (20.5-51.5); MEAN CORPUSCULAR HEMOGLOBIN 30 pg (27-31); MEAN CORPUSCULAR HGB CONC 33 % (32-36); MEAN CORPUSCULAR VOLUME 90 fL (79.0-98.0); MONOCYTES # (AUTO) 0.4 K/uL (0.0-1.0); MONOCYTES % (AUTO) 5.4 % (1.7-9.3); NEUTROPHILS # (AUTO) 3.9 K/uL (1.8-7.7); NEUTROPHILS % (AUTO) 48.7 % (40.0-70.0); PLATELET COUNT (AUTO) 102 K/uL (130-430); RED BLOOD CELL COUNT(AUTO) 4.22 MIL/uL (4.2-6.2); RED CELL DISTRIBUTION WIDTH 18.9 % (9.0-15.0); WHITE BLOOD COUNT (AUTO) 7.9 K/uL (4.8-10.8)
[2017-05-17 08:05] VITALS: BP_SYST 131
[2017-05-17] MEDS: MUPIROCIN 2% TOPICAL OINTMENT 22 GM TP SCH ×2 (08:18→22:37)
[2017-05-17] MEDS: POLYETHYLENE GLYCOL 3350, 17 GM/ POWD.PACK PO SCH (08:18)
[2017-05-17] MEDS: FLUTICASONE PROPIONATE 50 mCg/SPRAY 16 GM NS SCH ×2 (08:18→22:38)
[2017-05-17] MEDS: POTASSIUM CHLORIDE 10 MEQ TAB.PRT.SR PO SCH (08:19)
[2017-05-17] MEDS: DOCUSATE SODIUM 100 MG CAPSULE PO SCH ×2 (08:19→22:35)
[2017-05-17] MEDS: APIXABAN 2.5 MG TABLET PO SCH ×2 (08:19→22:37)
[2017-05-17] MEDS: OMEPRAZOLE 20 MG CAPSULE.DR (PriLOSEC) PO SCH (08:19)
[2017-05-17] MEDS: FERROUS SULFATE 325 MG TABLET.DR PO SCH ×3 (08:19→22:35)
[2017-05-17] MEDS: FUROSEMIDE 20 MG TABLET PO SCH (08:19)
[2017-05-17] MEDS: ASCORBIC ACID 500 MG TABLET PO SCH (08:19)
[2017-05-17] MEDS: CARVEDILOL 12.5 MG TABLET (COREG) PO SCH ×2 (08:19→22:36)
[2017-05-17] MEDS: PREDNISONE 20 MG TABLET PO SCH ×2 (08:19→22:35)
[2017-05-17 15:37] VITALS: BP_SYST 148
[2017-05-17] MEDS: MONTELUKAST 10 MG TABLET PO SCH (17:21)
[2017-05-17] MEDS: IMBRUVICA 140 MG PO SCH (17:22)
[2017-05-17 17:25] VITALS: BP_SYST 139
[2017-05-17 20:00] VITALS: BP_SYST 105
[2017-05-17] MEDS: TAMSULOSIN HCL 0.4 MG CAP PO SCH (22:36)
[2017-05-17] MEDS: cefTRIAXone 1 GM IVPB PREMIX 50 ML IV SCH (22:58)
[2017-05-18 01:00] VITALS: BP_SYST 126
[2017-05-18 03:46] VITALS: BP_SYST 120
[2017-05-18] MEDS ORDERED: LACTULOSE 20 GM/30 ML UDC PO ONE (07:45)
[2017-05-18 08:00] VITALS: BP_SYST 131
[2017-05-18] MEDS: DOCUSATE SODIUM 100 MG CAPSULE PO SCH ×2 (08:16→21:11)
[2017-05-18] MEDS: PREDNISONE 20 MG TABLET PO SCH ×2 (08:16→21:11)
[2017-05-18] MEDS: APIXABAN 2.5 MG TABLET PO SCH ×2 (08:16→21:10)
[2017-05-18] MEDS: OMEPRAZOLE 20 MG CAPSULE.DR (PriLOSEC) PO SCH (08:17)
[2017-05-18] MEDS: FERROUS SULFATE 325 MG TABLET.DR PO SCH ×3 (08:17→21:10)
[2017-05-18] MEDS: ASCORBIC ACID 500 MG TABLET PO SCH (08:18)
[2017-05-18] MEDS: POTASSIUM CHLORIDE 10 MEQ TAB.PRT.SR PO SCH (08:18)
[2017-05-18] MEDS: POLYETHYLENE GLYCOL 3350, 17 GM/ POWD.PACK PO SCH (08:19)
[2017-05-18] MEDS: MUPIROCIN 2% TOPICAL OINTMENT 22 GM TP SCH ×2 (08:19→21:15)
[2017-05-18] MEDS: FLUTICASONE PROPIONATE 50 mCg/SPRAY 16 GM NS SCH ×2 (08:20→21:14)
[2017-05-18] MEDS: CARVEDILOL 12.5 MG TABLET (COREG) PO SCH ×2 (08:21→21:11)
[2017-05-18] MEDS: FUROSEMIDE 20 MG TABLET PO SCH (08:21)
[2017-05-18 12:20] VITALS: BP_SYST 124
[2017-05-18 16:06] VITALS: BP_SYST 127
[2017-05-18] MEDS: MONTELUKAST 10 MG TABLET PO SCH (17:09)
[2017-05-18] MEDS: IMBRUVICA 140 MG PO SCH (17:10)
[2017-05-18 20:04] VITALS: BP_SYST 128
[2017-05-18] MEDS: TAMSULOSIN HCL 0.4 MG CAP PO SCH (21:10)
[2017-05-18] MEDS: cefTRIAXone 1 GM IVPB PREMIX 50 ML IV SCH (21:14)
[2017-05-19 03:16] VITALS: BP_SYST 131
[2017-05-19 06:42] LABS: CALCIUM 8.2 mg/dL (8.4-11.0); CHLORIDE 105 mmol/L (98-107); CREATININE 0.81 mg/dL (0.55-1.30); GLUCOSE 124 mg/dL (70-99); POTASSIUM 4.6 mmol/L (3.5-5.1); SODIUM SERUM 136 mmol/L (136-145); UREA NITROGEN, BLOOD 20 mg/dL (8-21)
[2017-05-19 06:52] LABS: BASOPHILS % (AUTO) 0.4 % (0.0-2.0); EOSINOPHILS % (AUTO) 0.1 % (0.0-4.0); HEMATOCRIT 36.1 % (36-54); HEMOGLOBIN 11.8 g/dL (14.0-18.0); LYMPHOCYTES # (AUTO) 3.7 K/uL (1.0-5.5); MEAN CORPUSCULAR HEMOGLOBIN 30 pg (27-31); MEAN CORPUSCULAR HGB CONC 33 % (32-36); MEAN CORPUSCULAR VOLUME 91 fL (79.0-98.0); MONOCYTES # (AUTO) 0.5 K/uL (0.0-1.0); MONOCYTES % (AUTO) 5.5 % (1.7-9.3); NEUTROPHILS # (AUTO) 5.7 K/uL (1.8-7.7); PLATELET COUNT (AUTO) 102 K/uL (130-430); RED BLOOD CELL COUNT(AUTO) 3.98 MIL/uL (4.2-6.2); RED CELL DISTRIBUTION WIDTH 19.6 % (9.0-15.0); WHITE BLOOD COUNT (AUTO) 9.9 K/uL (4.8-10.8)
[2017-05-19 08:02] LABS: ANION GAP < 3 (5-15)
[2017-05-19 08:31] VITALS: BP_SYST 135
[2017-05-19] MEDS: FLUTICASONE PROPIONATE 50 mCg/SPRAY 16 GM NS SCH ×2 (08:33→21:08)
[2017-05-19] MEDS: FERROUS SULFATE 325 MG TABLET.DR PO SCH ×3 (08:34→20:55)
[2017-05-19] MEDS: ASCORBIC ACID 500 MG TABLET PO SCH (08:34)
[2017-05-19] MEDS: OMEPRAZOLE 20 MG CAPSULE.DR (PriLOSEC) PO SCH (08:34)
[2017-05-19] MEDS: POTASSIUM CHLORIDE 10 MEQ TAB.PRT.SR PO SCH (08:34)
[2017-05-19] MEDS: APIXABAN 2.5 MG TABLET PO SCH ×2 (08:34→20:56)
[2017-05-19] MEDS: FUROSEMIDE 20 MG TABLET PO SCH (08:35)
[2017-05-19] MEDS: CARVEDILOL 12.5 MG TABLET (COREG) PO SCH ×2 (08:35→20:56)
[2017-05-19] MEDS: PREDNISONE 20 MG TABLET PO SCH ×2 (08:35→20:56)
[2017-05-19] MEDS: MUPIROCIN 2% TOPICAL OINTMENT 22 GM TP SCH ×2 (08:36→20:58)
[2017-05-19] MEDS: DOCUSATE SODIUM 100 MG CAPSULE PO SCH ×2 (08:36→20:56)
[2017-05-19] MEDS: POLYETHYLENE GLYCOL 3350, 17 GM/ POWD.PACK PO SCH (08:38)
[2017-05-19 12:22] VITALS: BP_SYST 128
[2017-05-19 16:14] VITALS: BP_SYST 132
[2017-05-19] MEDS: IMBRUVICA 140 MG PO SCH (18:03)
[2017-05-19] MEDS: MONTELUKAST 10 MG TABLET PO SCH (18:03)
[2017-05-19 19:20] VITALS: BP_SYST 130
[2017-05-19] MEDS: TAMSULOSIN HCL 0.4 MG CAP PO SCH (20:55)
[2017-05-19] MEDS: cefTRIAXone 1 GM IVPB PREMIX 50 ML IV SCH (20:56)
[2017-05-20 00:59] VITALS: BP_SYST 138
[2017-05-20 03:31] VITALS: BP_SYST 132
[2017-05-20 06:46] LABS: LYMPHOCYTES % (AUTO) 40.9 % (20.5-51.5); MEAN CORPUSCULAR HGB CONC 33 % (32-36); PLATELET COUNT (AUTO) 103 K/uL (130-430)
[2017-05-20 07:07] LABS: BASOPHILS % (AUTO) 0.4 % (0.0-2.0); EOSINOPHILS % (AUTO) 0.2 % (0.0-4.0); HEMATOCRIT 36.5 % (36-54); LYMPHOCYTES # (AUTO) 3.8 K/uL (1.0-5.5); MEAN CORPUSCULAR HEMOGLOBIN 30 pg (27-31); MEAN CORPUSCULAR VOLUME 90 fL (79.0-98.0); MONOCYTES # (AUTO) 0.5 K/uL (0.0-1.0); MONOCYTES % (AUTO) 4.9 % (1.7-9.3); NEUTROPHILS # (AUTO) 5.1 K/uL (1.8-7.7); NEUTROPHILS % (AUTO) 53.6 % (40.0-70.0); RED BLOOD CELL COUNT(AUTO) 4.04 MIL/uL (4.2-6.2); RED CELL DISTRIBUTION WIDTH 19.5 % (9.0-15.0); WHITE BLOOD COUNT (AUTO) 9.4 K/uL (4.8-10.8)
[2017-05-20 08:56] VITALS: BP_SYST 123
[2017-05-20] MEDS: FERROUS SULFATE 325 MG TABLET.DR PO SCH ×3 (09:49→20:33)
[2017-05-20] MEDS: OMEPRAZOLE 20 MG CAPSULE.DR (PriLOSEC) PO SCH (09:49)
[2017-05-20] MEDS: DOCUSATE SODIUM 100 MG CAPSULE PO SCH ×2 (09:49→20:35)
[2017-05-20] MEDS: PREDNISONE 20 MG TABLET PO SCH ×2 (09:49→20:33)
[2017-05-20] MEDS: APIXABAN 2.5 MG TABLET PO SCH ×2 (09:49→20:35)
[2017-05-20] MEDS: FLUTICASONE PROPIONATE 50 mCg/SPRAY 16 GM NS SCH ×2 (09:49→21:00)
[2017-05-20] MEDS: POTASSIUM CHLORIDE 10 MEQ TAB.PRT.SR PO SCH (09:49)
[2017-05-20] MEDS: ASCORBIC ACID 500 MG TABLET PO SCH (09:50)
[2017-05-20] MEDS: FUROSEMIDE 20 MG TABLET PO SCH (09:50)
[2017-05-20] MEDS: CARVEDILOL 12.5 MG TABLET (COREG) PO SCH ×2 (09:50→20:35)
[2017-05-20] MEDS: POLYETHYLENE GLYCOL 3350, 17 GM/ POWD.PACK PO SCH (09:50)
[2017-05-20] MEDS: MUPIROCIN 2% TOPICAL OINTMENT 22 GM TP SCH ×2 (09:51→20:37)
[2017-05-20 11:51] VITALS: BP_SYST 113; BP_SYST 141
[2017-05-20 16:49] VITALS: BP_SYST 127
[2017-05-20] MEDS: IMBRUVICA 140 MG PO SCH (17:59)
[2017-05-20] MEDS: MONTELUKAST 10 MG TABLET PO SCH (17:59)
[2017-05-20] MEDS: TAMSULOSIN HCL 0.4 MG CAP PO SCH (20:34)
[2017-05-20] MEDS: cefTRIAXone 1 GM IVPB PREMIX 50 ML IV SCH (20:36)
[2017-05-21] VITALS: BP_SYST 127
[2017-05-21 04:00] VITALS: BP_SYST 135
[2017-05-21 08:00] VITALS: BP_SYST 146
[2017-05-21] MEDS: PREDNISONE 20 MG TABLET PO SCH ×2 (08:32→21:05)
[2017-05-21] MEDS: POLYETHYLENE GLYCOL 3350, 17 GM/ POWD.PACK PO SCH (08:33)
[2017-05-21] MEDS: POTASSIUM CHLORIDE 10 MEQ TAB.PRT.SR PO SCH (08:33)
[2017-05-21] MEDS: APIXABAN 2.5 MG TABLET PO SCH ×2 (08:33→21:06)
[2017-05-21] MEDS: OMEPRAZOLE 20 MG CAPSULE.DR (PriLOSEC) PO SCH (08:33)
[2017-05-21] MEDS: ASCORBIC ACID 500 MG TABLET PO SCH (08:33)
[2017-05-21] MEDS: FERROUS SULFATE 325 MG TABLET.DR PO SCH ×3 (08:33→21:10)
[2017-05-21] MEDS: DOCUSATE SODIUM 100 MG CAPSULE PO SCH ×2 (08:33→21:04)
[2017-05-21] MEDS: CARVEDILOL 12.5 MG TABLET (COREG) PO SCH ×2 (08:33→21:03)
[2017-05-21] MEDS: FUROSEMIDE 20 MG TABLET PO SCH (08:45)
[2017-05-21] MEDS: MUPIROCIN 2% TOPICAL OINTMENT 22 GM TP SCH ×2 (08:46→21:21)
[2017-05-21] MEDS: FLUTICASONE PROPIONATE 50 mCg/SPRAY 16 GM NS SCH ×2 (11:50→21:22)
[2017-05-21 12:20] VITALS: BP_SYST 115
[2017-05-21 16:21] VITALS: BP_SYST 122
[2017-05-21] MEDS: MONTELUKAST 10 MG TABLET PO SCH (18:09)
[2017-05-21] MEDS: IMBRUVICA 140 MG PO SCH (18:10)
[2017-05-21 19:29] VITALS: BP_SYST 138
[2017-05-21] MEDS: TAMSULOSIN HCL 0.4 MG CAP PO SCH (21:09)
[2017-05-21] MEDS: cefTRIAXone 1 GM IVPB PREMIX 50 ML IV SCH (21:12)
[2017-05-22] VITALS (7 sets, daily range): BP systolic 120–137
[2017-05-22 07:11] LABS: BASOPHILS % (AUTO) 0.4 % (0.0-2.0); EOSINOPHILS % (AUTO) 0.1 % (0.0-4.0); HEMATOCRIT 34.4 % (36-54); HEMOGLOBIN 11.3 g/dL (14.0-18.0); LYMPHOCYTES # (AUTO) 3.8 K/uL (1.0-5.5); LYMPHOCYTES % (AUTO) 39.2 % (20.5-51.5); MEAN CORPUSCULAR HEMOGLOBIN 29 pg (27-31); MEAN CORPUSCULAR HGB CONC 33 % (32-36); MEAN CORPUSCULAR VOLUME 89 fL (79.0-98.0); MONOCYTES # (AUTO) 0.5 K/uL (0.0-1.0); NEUTROPHILS # (AUTO) 5.5 K/uL (1.8-7.7); NEUTROPHILS % (AUTO) 55.3 % (40.0-70.0); PLATELET COUNT (AUTO) 101 K/uL (130-430); RED BLOOD CELL COUNT(AUTO) 3.86 MIL/uL (4.2-6.2); RED CELL DISTRIBUTION WIDTH 19.3 % (9.0-15.0); WHITE BLOOD COUNT (AUTO) 9.8 K/uL (4.8-10.8)
[2017-05-22] MEDS: POLYETHYLENE GLYCOL 3350, 17 GM/ POWD.PACK PO SCH (10:16)
[2017-05-22] MEDS: FERROUS SULFATE 325 MG TABLET.DR PO SCH ×4 (10:16→20:23)
[2017-05-22] MEDS: DOCUSATE SODIUM 100 MG CAPSULE PO SCH ×2 (10:16→20:23)
[2017-05-22] MEDS: POTASSIUM CHLORIDE 10 MEQ TAB.PRT.SR PO SCH (10:16)
[2017-05-22] MEDS: OMEPRAZOLE 20 MG CAPSULE.DR (PriLOSEC) PO SCH (10:16)
[2017-05-22] MEDS: ASCORBIC ACID 500 MG TABLET PO SCH (10:17)
[2017-05-22] MEDS: PREDNISONE 20 MG TABLET PO SCH ×2 (10:17→20:23)
[2017-05-22] MEDS: APIXABAN 2.5 MG TABLET PO SCH ×2 (10:17→20:23)
[2017-05-22] MEDS: FUROSEMIDE 20 MG TABLET PO SCH (10:17)
[2017-05-22] MEDS: FLUTICASONE PROPIONATE 50 mCg/SPRAY 16 GM NS SCH ×2 (10:18→20:24)
[2017-05-22] MEDS: CARVEDILOL 12.5 MG TABLET (COREG) PO SCH ×2 (10:18→20:23)
[2017-05-22] MEDS: MUPIROCIN 2% TOPICAL OINTMENT 22 GM TP SCH ×2 (10:19→20:24)
[2017-05-22] MEDS: IMBRUVICA 140 MG PO SCH (18:55)
[2017-05-22] MEDS: MONTELUKAST 10 MG TABLET PO SCH (18:55)
[2017-05-22] MEDS: TAMSULOSIN HCL 0.4 MG CAP PO SCH (20:23)
[2017-05-23 03:54] VITALS: BP_SYST 136
[2017-05-23 08:30] VITALS: BP_SYST 131
[2017-05-23] MEDS ORDERED: cefTRIAXone 1 GM IVPB PREMIX 50 ML IV SCH (10:00)
[2017-05-23] MEDS: FLUTICASONE PROPIONATE 50 mCg/SPRAY 16 GM NS SCH (10:28)
[2017-05-23] MEDS: POLYETHYLENE GLYCOL 3350, 17 GM/ POWD.PACK PO SCH (10:28)
[2017-05-23] MEDS: APIXABAN 2.5 MG TABLET PO SCH (10:31)
[2017-05-23] MEDS: ASCORBIC ACID 500 MG TABLET PO SCH (10:32)
[2017-05-23] MEDS: CARVEDILOL 12.5 MG TABLET (COREG) PO SCH (10:32)
[2017-05-23] MEDS: FERROUS SULFATE 325 MG TABLET.DR PO SCH ×2 (10:32→14:49)
[2017-05-23] MEDS: POTASSIUM CHLORIDE 10 MEQ TAB.PRT.SR PO SCH (10:32)
[2017-05-23] MEDS: DOCUSATE SODIUM 100 MG CAPSULE PO SCH (10:32)
[2017-05-23] MEDS: PREDNISONE 20 MG TABLET PO SCH (10:32)
[2017-05-23] MEDS: OMEPRAZOLE 20 MG CAPSULE.DR (PriLOSEC) PO SCH (10:32)
[2017-05-23] MEDS: MUPIROCIN 2% TOPICAL OINTMENT 22 GM TP SCH (10:33)
[2017-05-23] MEDS: FUROSEMIDE 20 MG TABLET PO SCH (10:33)
[2017-05-23 12:00] VITALS: BP_SYST 123
[2017-05-23 16:49] VITALS: BP_SYST 132
[2017-05-23 16:52] VITALS: BP_SYST 132
[2017-05-23] MEDS: MONTELUKAST 10 MG TABLET PO SCH (18:15)
[2017-05-23] MEDS: IMBRUVICA 140 MG PO SCH (18:16)
== END 2017-05-23 20:10 | DRG 281 ==
LOC: SED 12:13 → STU 14:32 → SMU 16:55
PROVIDERS: ADMIT Internal Medicine; ATTEND Internal Medicine
DX: I21.3 ST elevation (STEMI) myocardial infarction of unspecified site (principal); N39.0 Urinary tract infection, site not specified; C91.10 Chronic lymphocytic leukemia of B-cell type not having achieved remission; I42.9 Cardiomyopathy, unspecified; E44.0 Moderate protein-calorie malnutrition; I25.10 Atherosclerotic heart disease of native coronary artery without angina pectoris; N40.0 Benign prostatic hyperplasia without lower urinary tract symptoms; I48.2 Chronic atrial fibrillation; I50.9 Heart failure, unspecified; N13.9 Obstructive and reflux uropathy, unspecified; D64.9 Anemia, unspecified; D69.6 Thrombocytopenia, unspecified; R53.81 Other malaise; I11.0 Hypertensive heart disease with heart failure; Z95.810 Presence of automatic (implantable) cardiac defibrillator; Z79.01 Long term (current) use of anticoagulants; Z87.01 Personal history of pneumonia (recurrent); Z79.899 Other long term (current) drug therapy; Z95.2 Presence of prosthetic heart valve; Z87.81 Personal history of (healed) traumatic fracture
CPT/HCPCS: 36415; 71010; 71020-TC; 80048; 80053; 81000-TC; 82550-TC; 83605; 84484; 85025; 85610-TC; 85730-TC; 87040-TC; 87081; 87086; 87186-TC; 93005; 96360; 97110-GP; 97116-GP; 97530-GP; 99285; J0696; J1644; J1815; J2543; J3370; J7030; J7050; J7512; Q9967

== ENCOUNTER 2017-07-02 16:52 | Inpatient (IN) | payer OTHER, MEDICARE ==
[~2017-07-02] VITALS: Ht 188 cm; Wt 101.6 kg
[2017-07-02 16:54] VITALS: BP_SYST 109
[2017-07-02] MEDS ORDERED: NACL 0.9% 1,000 ML IV SCH (16:59)
[2017-07-02] MEDS ORDERED: cefTRIAXone 1 GM IVPB PREMIX 50 ML IV ONE (17:00)
[2017-07-02 17:28] LABS: BASOPHILS % (AUTO) 0.3 % (0.0-2.0); HEMATOCRIT 35.9 % (36-54); HEMOGLOBIN 11.8 g/dL (14.0-18.0); LYMPHOCYTES # (AUTO) 5.3 K/uL (1.0-5.5); LYMPHOCYTES % (AUTO) 33.1 % (20.5-51.5); MEAN CORPUSCULAR HEMOGLOBIN 31 pg (27-31); MEAN CORPUSCULAR HGB CONC 33 % (32-36); MEAN CORPUSCULAR VOLUME 93 fL (79.0-98.0); MONOCYTES # (AUTO) 0.6 K/uL (0.0-1.0); MONOCYTES % (AUTO) 3.9 % (1.7-9.3); NEUTROPHILS # (AUTO) 10.2 K/uL (1.8-7.7); NEUTROPHILS % (AUTO) 62.7 % (40.0-70.0); PLATELET COUNT (AUTO) 141 K/uL (130-430); RED BLOOD CELL COUNT(AUTO) 3.87 MIL/uL (4.2-6.2); RED CELL DISTRIBUTION WIDTH 17.3 % (9.0-15.0); WHITE BLOOD COUNT (AUTO) 16.1 K/uL (4.8-10.8)
[2017-07-02] MEDS ORDERED: PIPERACILLIN/TAZO 4.5 GM in NS 100 ML IV ONE (17:30)
[2017-07-02] MEDS ORDERED: VANCOMYCIN HCL 1,000 MG in NS 250 ML IV ONE (17:30)
[2017-07-02 17:33] LABS: ANION GAP 4 (5-15); CALCIUM 8.9 mg/dL (8.4-11.0); CHLORIDE 103 mmol/L (98-107); CREATININE 0.98 mg/dL (0.55-1.30); GLUCOSE 160 mg/dL (70-99); POTASSIUM 4.2 mmol/L (3.5-5.1); SODIUM SERUM 137 mmol/L (136-145); UREA NITROGEN, BLOOD 30 mg/dL (8-21)
[2017-07-02 17:37] LABS: PROTHROMBIN TIME 10.6 SECS (9.5-12.5)
[2017-07-02 17:38] LABS: ALANINE AMINOTRANSFERASE 36 U/L (12-78); ALBUMIN 2.5 g/dL (3.4-4.8); ASPARTATE AMINOTRANSFERASE 15 U/L (10-37); TOTAL BILIRUBIN 0.4 mg/dL (0.0-1.0)
[2017-07-02] MEDS ORDERED: PIPERACILLIN/TAZOBACTAM 4.5 GM/VIAL (ZOSYN) IV ONE (17:50)
[2017-07-02] MEDS ORDERED: VANCOMYCIN HCL 1000 MG/VIAL IV ONE (17:50)
[2017-07-02 18:01] LABS: COLOR,URINE YELLOW (YELLOW)
[2017-07-02 18:02] LABS: BILIRUBIN,URINE NEGATIVE (NEGATIVE); BLOOD, URINE 3+ (NEGATIVE); CLARITY/URINE TURBID (CLEAR); GLUCOSE,URINE NEGATIVE (NEGATIVE); KETONES,URINE NEGATIVE (NEGATIVE); LEUKOCYTE ESTERASE ,URINE 3+ (NEGATIVE); NITRITE, URINE POSITIVE (NEGATIVE); PH,URINE 7.5 (5.0-8.0); PROTEIN URINE 2+ (NEGATIVE); UROBILINOGEN,URINE 0.2 (0.2-1.0)
[2017-07-02 18:09] LABS: BACTERIA,URINE MANY /HPF (None Seen); MUCUS,URINE None Seen /LPF (None Seen); RBC,URINE 20-50 /HPF (0-3); URINE AMORPHOUS PHOSPHATES 2+ /HPF (None Seen); WBC,URINE >100 /HPF (0-3)
[2017-07-02 19:35] VITALS: BP_SYST 134
[2017-07-02] MEDS ORDERED: MILK OF MAGNESIA 30 ML UDC PO PRN (23:15)
[2017-07-02] MEDS ORDERED: ACETAMINOPHEN 325 MG TABLET PO PRN (23:15)
[2017-07-02] MEDS ORDERED: NA PHOS,M-B/NA PHOS,DI-BA 118 ML (FLEET ENEMA) RC PRN (23:15)
[2017-07-02] MEDS ORDERED: BISACODYL 10 MG/SUPPOSITORY RC PRN (23:15)
[2017-07-02 23:30] VITALS: BP_SYST 133
[2017-07-03] MEDS: CARVEDILOL 12.5 MG TABLET (COREG) PO SCH ×3 (00:39→17:13)
[2017-07-03] MEDS: NACL 0.9% 1,000 ML IV SCH ×3 (00:40→20:37)
[2017-07-03] MEDS ORDERED: VANCOMYCIN HCL 1000 MG/VIAL IV ONE (01:18)
[2017-07-03] MEDS ORDERED: VANCOMYCIN HCL 500 MG/VIAL IV ONE (01:18)
[2017-07-03] MEDS ORDERED: PIPERACILLIN/TAZOBACTAM 3.375 GM/VIAL (ZOSYN) IV ONE ×2 (01:18→05:48)
[2017-07-03] MEDS: PIPERACILLIN/TAZO 3.375/DEX-IS 50 ML IV SCH ×4 (01:32→17:12)
[2017-07-03 03:40] VITALS: BP_SYST 122
[2017-07-03] MEDS ORDERED: VANCOMYCIN HCL 1,250 MG in NS 250 ML IV SCH (06:30)
[2017-07-03 08:26] VITALS: BP_SYST 126
[2017-07-03] MEDS: FLUTICASONE PROPIONATE 50 mCg/SPRAY 16 GM NS SCH ×2 (08:30→21:24)
[2017-07-03] MEDS: DESMOPRESSIN 0.1 MG TAB (DDAVP) PO SCH (08:30)
[2017-07-03] MEDS: PREDNISONE 20 MG TABLET PO SCH ×2 (08:31→21:25)
[2017-07-03] MEDS: OMEPRAZOLE 20 MG CAPSULE.DR (PriLOSEC) PO SCH (08:32)
[2017-07-03] MEDS: FERROUS SULFATE 325 MG TABLET.DR PO SCH ×3 (08:32→21:25)
[2017-07-03 12:25] VITALS: BP_SYST 109
[2017-07-03 16:06] VITALS: BP_SYST 112
[2017-07-03] MEDS: MONTELUKAST 10 MG TABLET PO SCH (17:12)
[2017-07-03] MEDS ORDERED: CEFEPIME 1 GM in D5W 50 ML IV SCH (17:30)
[2017-07-03] MEDS: CEFEPIME 1 GM in D5W 50 ML IV SCH (18:08)
[2017-07-03 20:00] VITALS: BP_SYST 125
[2017-07-03] MEDS: GENTAMICIN SULFATE 140 MG in NS 100 ML IV SCH (20:30)
[2017-07-03] MEDS ORDERED: IBRUTINIB 140 MG PO SCH (21:00)
[2017-07-03] MEDS: TAMSULOSIN HCL 0.4 MG CAP PO SCH (21:25)
[2017-07-03] MEDS: APIXABAN 2.5 MG TABLET PO SCH (21:25)
[2017-07-04 00:20] VITALS: BP_SYST 138
[2017-07-04 03:33] VITALS: BP_SYST 130
[2017-07-04] MEDS: NACL 0.9% 1,000 ML IV SCH ×2 (05:17→14:43)
[2017-07-04] MEDS: CEFEPIME 1 GM in D5W 50 ML IV SCH ×2 (05:17→17:53)
[2017-07-04 07:35] LABS: EOSINOPHILS % (AUTO) 0.3 % (0.0-4.0); HEMATOCRIT 32.9 % (36-54); HEMOGLOBIN 10.9 g/dL (14.0-18.0); LYMPHOCYTES # (AUTO) 3.6 K/uL (1.0-5.5); LYMPHOCYTES % (AUTO) 31.2 % (20.5-51.5); MEAN CORPUSCULAR HEMOGLOBIN 31 pg (27-31); MEAN CORPUSCULAR HGB CONC 33 % (32-36); MEAN CORPUSCULAR VOLUME 93 fL (79.0-98.0); MONOCYTES # (AUTO) 0.5 K/uL (0.0-1.0); MONOCYTES % (AUTO) 4.5 % (1.7-9.3); NEUTROPHILS # (AUTO) 7.6 K/uL (1.8-7.7); PLATELET COUNT (AUTO) 117 K/uL (130-430); RED BLOOD CELL COUNT(AUTO) 3.56 MIL/uL (4.2-6.2); RED CELL DISTRIBUTION WIDTH 16.6 % (9.0-15.0)
[2017-07-04 07:36] LABS: ANION GAP 7 (5-15); CALCIUM 8.6 mg/dL (8.4-11.0); CHLORIDE 106 mmol/L (98-107); CREATININE 0.65 mg/dL (0.55-1.30); GLUCOSE 124 mg/dL (70-99); POTASSIUM 4.2 mmol/L (3.5-5.1); SODIUM SERUM 138 mmol/L (136-145); UREA NITROGEN, BLOOD 19 mg/dL (8-21); VANCOMYCIN,TROUGH 4.2 ug/mL (5.0-10.0)
[2017-07-04 07:47] LABS: WHITE BLOOD COUNT (AUTO) 11.7 K/uL (4.8-10.8)
[2017-07-04 08:00] VITALS: BP_SYST 136
[2017-07-04] MEDS: GENTAMICIN SULFATE 140 MG in NS 100 ML IV SCH ×2 (08:23→21:45)
[2017-07-04] MEDS: FERROUS SULFATE 325 MG TABLET.DR PO SCH ×3 (08:24→21:46)
[2017-07-04] MEDS: DESMOPRESSIN 0.1 MG TAB (DDAVP) PO SCH (08:24)
[2017-07-04] MEDS: APIXABAN 2.5 MG TABLET PO SCH ×2 (08:24→21:46)
[2017-07-04] MEDS: CARVEDILOL 12.5 MG TABLET (COREG) PO SCH ×2 (08:24→17:22)
[2017-07-04] MEDS: OMEPRAZOLE 20 MG CAPSULE.DR (PriLOSEC) PO SCH (08:24)
[2017-07-04] MEDS: PREDNISONE 20 MG TABLET PO SCH ×2 (08:24→21:46)
[2017-07-04] MEDS: FLUTICASONE PROPIONATE 50 mCg/SPRAY 16 GM NS SCH ×2 (08:24→21:45)
[2017-07-04 12:34] VITALS: BP_SYST 128
[2017-07-04] MEDS ORDERED: IBRU140C PO ×2 (13:04)
[2017-07-04 16:07] VITALS: BP_SYST 129
[2017-07-04] MEDS: MONTELUKAST 10 MG TABLET PO SCH (17:21)
[2017-07-04] MEDS: TAMSULOSIN HCL 0.4 MG CAP PO SCH (21:46)
[2017-07-04 21:49] VITALS: BP_SYST 127
[2017-07-05] VITALS (7 sets, daily range): BP systolic 123–160
[2017-07-05] MEDS: NACL 0.9% 1,000 ML IV SCH ×3 (02:37→22:11)
[2017-07-05] MEDS: CEFEPIME 1 GM in D5W 50 ML IV SCH ×2 (05:11→17:39)
[2017-07-05 07:26] LABS: BASOPHILS % (AUTO) 0.2 % (0.0-2.0); EOSINOPHILS % (AUTO) 0.1 % (0.0-4.0); HEMATOCRIT 33.3 % (36-54); HEMOGLOBIN 11.2 g/dL (14.0-18.0); LYMPHOCYTES # (AUTO) 4.8 K/uL (1.0-5.5); LYMPHOCYTES % (AUTO) 37.9 % (20.5-51.5); MEAN CORPUSCULAR HEMOGLOBIN 31 pg (27-31); MEAN CORPUSCULAR HGB CONC 34 % (32-36); MEAN CORPUSCULAR VOLUME 92 fL (79.0-98.0); MONOCYTES # (AUTO) 0.6 K/uL (0.0-1.0); MONOCYTES % (AUTO) 4.5 % (1.7-9.3); NEUTROPHILS # (AUTO) 7.3 K/uL (1.8-7.7); NEUTROPHILS % (AUTO) 57.3 % (40.0-70.0); PLATELET COUNT (AUTO) 117 K/uL (130-430); RED BLOOD CELL COUNT(AUTO) 3.61 MIL/uL (4.2-6.2); RED CELL DISTRIBUTION WIDTH 16.8 % (9.0-15.0); WHITE BLOOD COUNT (AUTO) 12.7 K/uL (4.8-10.8)
[2017-07-05 07:53] LABS: ANION GAP 3 (5-15); CALCIUM 8.6 mg/dL (8.4-11.0); CHLORIDE 107 mmol/L (98-107); CREATININE 0.71 mg/dL (0.55-1.30); GLUCOSE 129 mg/dL (70-99); POTASSIUM 4.3 mmol/L (3.5-5.1); SODIUM SERUM 138 mmol/L (136-145); UREA NITROGEN, BLOOD 18 mg/dL (8-21)
[2017-07-05] MEDS: APIXABAN 2.5 MG TABLET PO SCH ×2 (08:19→20:50)
[2017-07-05] MEDS: OMEPRAZOLE 20 MG CAPSULE.DR (PriLOSEC) PO SCH (08:19)
[2017-07-05] MEDS: PREDNISONE 20 MG TABLET PO SCH ×2 (08:19→20:50)
[2017-07-05] MEDS: GENTAMICIN SULFATE 140 MG in NS 100 ML IV SCH ×2 (08:20→20:50)
[2017-07-05] MEDS: CARVEDILOL 12.5 MG TABLET (COREG) PO SCH ×2 (08:20→17:41)
[2017-07-05] MEDS: FERROUS SULFATE 325 MG TABLET.DR PO SCH ×4 (08:20→20:50)
[2017-07-05] MEDS: DESMOPRESSIN 0.1 MG TAB (DDAVP) PO SCH (08:21)
[2017-07-05] MEDS: FLUTICASONE PROPIONATE 50 mCg/SPRAY 16 GM NS SCH ×2 (08:21→20:50)
[2017-07-05] MEDS: MONTELUKAST 10 MG TABLET PO SCH (17:39)
[2017-07-05] MEDS: TAMSULOSIN HCL 0.4 MG CAP PO SCH (20:50)
[2017-07-06] VITALS (7 sets, daily range): BP systolic 117–143
[2017-07-06] MEDS: CEFEPIME 1 GM in D5W 50 ML IV SCH ×2 (05:07→18:00)
[2017-07-06 06:58] LABS: BASOPHILS % (AUTO) 0.1 % (0.0-2.0); EOSINOPHILS % (AUTO) 0.3 % (0.0-4.0); HEMATOCRIT 32.2 % (36-54); HEMOGLOBIN 10.6 g/dL (14.0-18.0); LYMPHOCYTES # (AUTO) 5.2 K/uL (1.0-5.5); LYMPHOCYTES % (AUTO) 34.2 % (20.5-51.5); MEAN CORPUSCULAR HEMOGLOBIN 31 pg (27-31); MEAN CORPUSCULAR HGB CONC 33 % (32-36); MEAN CORPUSCULAR VOLUME 93 fL (79.0-98.0); MONOCYTES # (AUTO) 0.7 K/uL (0.0-1.0); MONOCYTES % (AUTO) 4.6 % (1.7-9.3); NEUTROPHILS # (AUTO) 9.2 K/uL (1.8-7.7); NEUTROPHILS % (AUTO) 60.8 % (40.0-70.0); PLATELET COUNT (AUTO) 123 K/uL (130-430); RED BLOOD CELL COUNT(AUTO) 3.48 MIL/uL (4.2-6.2); RED CELL DISTRIBUTION WIDTH 16.8 % (9.0-15.0); WHITE BLOOD COUNT (AUTO) 15.1 K/uL (4.8-10.8)
[2017-07-06 07:13] LABS: ANION GAP 3 (5-15); CALCIUM 8.6 mg/dL (8.4-11.0); CHLORIDE 108 mmol/L (98-107); CREATININE 0.75 mg/dL (0.55-1.30); GLUCOSE 128 mg/dL (70-99); SODIUM SERUM 138 mmol/L (136-145); UREA NITROGEN, BLOOD 24 mg/dL (8-21)
[2017-07-06] MEDS: GENTAMICIN SULFATE 140 MG in NS 100 ML IV SCH ×2 (08:51→21:27)
[2017-07-06] MEDS: OMEPRAZOLE 20 MG CAPSULE.DR (PriLOSEC) PO SCH (09:30)
[2017-07-06] MEDS: FERROUS SULFATE 325 MG TABLET.DR PO SCH ×3 (09:30→21:28)
[2017-07-06] MEDS: PREDNISONE 20 MG TABLET PO SCH ×2 (09:31→21:28)
[2017-07-06] MEDS: CARVEDILOL 12.5 MG TABLET (COREG) PO SCH ×2 (09:32→18:34)
[2017-07-06] MEDS: FLUTICASONE PROPIONATE 50 mCg/SPRAY 16 GM NS SCH ×2 (09:32→21:27)
[2017-07-06] MEDS: DESMOPRESSIN 0.1 MG TAB (DDAVP) PO SCH (09:33)
[2017-07-06] MEDS: NACL 0.9% 1,000 ML IV SCH ×2 (09:37→21:29)
[2017-07-06] MEDS: traMADol HCL HCL 50 MG TABLET (ULTRAM) PO PRN (10:23)
[2017-07-06] MEDS: APIXABAN 2.5 MG TABLET PO SCH ×2 (16:14→21:28)
[2017-07-06] MEDS: MONTELUKAST 10 MG TABLET PO SCH (18:35)
[2017-07-06] MEDS ORDERED: CEFEPIME 1 GM/VIAL (MAXIPIME) ONE ×2 (19:41→22:10)
[2017-07-06] MEDS: TAMSULOSIN HCL 0.4 MG CAP PO SCH (21:28)
[2017-07-07 04:44] VITALS: BP_SYST 134
[2017-07-07] MEDS: CEFEPIME 1 GM in D5W 50 ML IV SCH ×2 (05:48→17:33)
[2017-07-07] MEDS: NACL 0.9% 1,000 ML IV SCH ×3 (05:49→22:26)
[2017-07-07 07:53] LABS: BASOPHILS % (AUTO) 0.1 % (0.0-2.0); EOSINOPHILS % (AUTO) 0.1 % (0.0-4.0); HEMATOCRIT 31.9 % (36-54); HEMOGLOBIN 10.8 g/dL (14.0-18.0); LYMPHOCYTES # (AUTO) 5.3 K/uL (1.0-5.5); LYMPHOCYTES % (AUTO) 35.1 % (20.5-51.5); MEAN CORPUSCULAR HEMOGLOBIN 31 pg (27-31); MEAN CORPUSCULAR HGB CONC 34 % (32-36); MEAN CORPUSCULAR VOLUME 93 fL (79.0-98.0); MONOCYTES # (AUTO) 0.8 K/uL (0.0-1.0); MONOCYTES % (AUTO) 5.1 % (1.7-9.3); NEUTROPHILS # (AUTO) 8.9 K/uL (1.8-7.7); PLATELET COUNT (AUTO) 121 K/uL (130-430); RED BLOOD CELL COUNT(AUTO) 3.43 MIL/uL (4.2-6.2); RED CELL DISTRIBUTION WIDTH 16.9 % (9.0-15.0)
[2017-07-07 08:21] LABS: ANION GAP 6 (5-15); CALCIUM 8.8 mg/dL (8.4-11.0); CHLORIDE 106 mmol/L (98-107); CREATININE 0.69 mg/dL (0.55-1.30); GLUCOSE 121 mg/dL (70-99); POTASSIUM 3.9 mmol/L (3.5-5.1); SODIUM SERUM 137 mmol/L (136-145); UREA NITROGEN, BLOOD 20 mg/dL (8-21)
[2017-07-07 08:23] VITALS: BP_SYST 131
[2017-07-07] MEDS: CARVEDILOL 12.5 MG TABLET (COREG) PO SCH ×2 (08:44→17:32)
[2017-07-07] MEDS: FERROUS SULFATE 325 MG TABLET.DR PO SCH ×3 (08:44→22:24)
[2017-07-07] MEDS: PREDNISONE 20 MG TABLET PO SCH ×2 (08:44→22:25)
[2017-07-07] MEDS: OMEPRAZOLE 20 MG CAPSULE.DR (PriLOSEC) PO SCH (08:44)
[2017-07-07] MEDS: APIXABAN 2.5 MG TABLET PO SCH ×2 (08:44→22:24)
[2017-07-07] MEDS: FLUTICASONE PROPIONATE 50 mCg/SPRAY 16 GM NS SCH ×2 (08:46→22:25)
[2017-07-07] MEDS: DESMOPRESSIN 0.1 MG TAB (DDAVP) PO SCH (08:47)
[2017-07-07] MEDS: GENTAMICIN SULFATE 140 MG in NS 100 ML IV SCH ×2 (08:47→22:24)
[2017-07-07 10:53] LABS: NEUTROPHILS % (AUTO) 59.6 % (40.0-70.0)
[2017-07-07 12:00] VITALS: BP_SYST 131
[2017-07-07 16:00] VITALS: BP_SYST 137
[2017-07-07] MEDS: MONTELUKAST 10 MG TABLET PO SCH (17:32)
[2017-07-07 20:05] VITALS: BP_SYST 138
[2017-07-07] MEDS: TAMSULOSIN HCL 0.4 MG CAP PO SCH (22:24)
[2017-07-08 00:05] VITALS: BP_SYST 145
[2017-07-08 03:11] VITALS: BP_SYST 144
[2017-07-08] MEDS: CEFEPIME 1 GM in D5W 50 ML IV SCH (05:30)
[2017-07-08 08:14] VITALS: BP_SYST 146
[2017-07-08] MEDS: GENTAMICIN SULFATE 140 MG in NS 100 ML IV SCH (09:20)
[2017-07-08] MEDS: DESMOPRESSIN 0.1 MG TAB (DDAVP) PO SCH (09:21)
[2017-07-08] MEDS: CARVEDILOL 12.5 MG TABLET (COREG) PO SCH ×2 (09:21→17:56)
[2017-07-08] MEDS: FLUTICASONE PROPIONATE 50 mCg/SPRAY 16 GM NS SCH ×2 (09:21→20:51)
[2017-07-08] MEDS: APIXABAN 2.5 MG TABLET PO SCH ×2 (09:22→20:51)
[2017-07-08] MEDS: OMEPRAZOLE 20 MG CAPSULE.DR (PriLOSEC) PO SCH (09:22)
[2017-07-08] MEDS: PREDNISONE 20 MG TABLET PO SCH ×2 (09:22→20:51)
[2017-07-08] MEDS: FERROUS SULFATE 325 MG TABLET.DR PO SCH ×3 (09:22→20:52)
[2017-07-08] MEDS: NACL 0.9% 1,000 ML IV SCH ×2 (09:31→17:56)
[2017-07-08 12:56] VITALS: BP_SYST 132
[2017-07-08 16:56] VITALS: BP_SYST 140
[2017-07-08] MEDS: cefTRIAXone 1 GM in D5W 50 ML IV SCH (17:55)
[2017-07-08] MEDS: MONTELUKAST 10 MG TABLET PO SCH (17:55)
[2017-07-08 20:13] VITALS: BP_SYST 141
[2017-07-08] MEDS: TAMSULOSIN HCL 0.4 MG CAP PO SCH (20:51)
[2017-07-09 00:05] VITALS: BP_SYST 130
[2017-07-09 04:07] VITALS: BP_SYST 132
[2017-07-09] MEDS: NACL 0.9% 1,000 ML IV SCH ×2 (06:30→14:24)
[2017-07-09 07:25] LABS: BASOPHILS % (AUTO) 0.2 % (0.0-2.0); EOSINOPHILS % (AUTO) 0.1 % (0.0-4.0); HEMATOCRIT 30.1 % (36-54); HEMOGLOBIN 10.1 g/dL (14.0-18.0); LYMPHOCYTES # (AUTO) 4.6 K/uL (1.0-5.5); MEAN CORPUSCULAR HEMOGLOBIN 31 pg (27-31); MEAN CORPUSCULAR HGB CONC 34 % (32-36); MEAN CORPUSCULAR VOLUME 93 fL (79.0-98.0); MONOCYTES # (AUTO) 0.9 K/uL (0.0-1.0); NEUTROPHILS # (AUTO) 9.2 K/uL (1.8-7.7); NEUTROPHILS % (AUTO) 62.7 % (40.0-70.0); PLATELET COUNT (AUTO) 121 K/uL (130-430); RED BLOOD CELL COUNT(AUTO) 3.24 MIL/uL (4.2-6.2); RED CELL DISTRIBUTION WIDTH 17.1 % (9.0-15.0); WHITE BLOOD COUNT (AUTO) 14.8 K/uL (4.8-10.8)
[2017-07-09 08:00] VITALS: BP_SYST 147
[2017-07-09] MEDS: FERROUS SULFATE 325 MG TABLET.DR PO SCH ×3 (08:21→20:53)
[2017-07-09] MEDS: FLUTICASONE PROPIONATE 50 mCg/SPRAY 16 GM NS SCH ×2 (08:21→20:53)
[2017-07-09] MEDS: PREDNISONE 20 MG TABLET PO SCH ×2 (08:21→20:53)
[2017-07-09] MEDS: OMEPRAZOLE 20 MG CAPSULE.DR (PriLOSEC) PO SCH (08:21)
[2017-07-09] MEDS: DESMOPRESSIN 0.1 MG TAB (DDAVP) PO SCH (08:21)
[2017-07-09] MEDS: APIXABAN 2.5 MG TABLET PO SCH ×2 (08:21→20:53)
[2017-07-09] MEDS: CARVEDILOL 12.5 MG TABLET (COREG) PO SCH ×2 (08:22→17:15)
[2017-07-09 12:51] VITALS: BP_SYST 133
[2017-07-09] MEDS ORDERED: FUROSEMIDE 20 MG TABLET PO ONE (13:45)
[2017-07-09] MEDS ORDERED: POTASSIUM CHLORIDE 10 MEQ TAB.PRT.SR PO ONE (14:00)
[2017-07-09 16:31] VITALS: BP_SYST 127
[2017-07-09] MEDS: cefTRIAXone 1 GM in D5W 50 ML IV SCH (17:15)
[2017-07-09] MEDS: MONTELUKAST 10 MG TABLET PO SCH (17:15)
[2017-07-09 20:18] VITALS: BP_SYST 125
[2017-07-09] MEDS: TAMSULOSIN HCL 0.4 MG CAP PO SCH (20:53)
[2017-07-10] VITALS: BP_SYST 140
[2017-07-10] MEDS: NACL 0.9% 1,000 ML IV SCH ×3 (01:25→23:12)
[2017-07-10] MEDS: traMADol HCL HCL 50 MG TABLET (ULTRAM) PO PRN (03:44)
[2017-07-10 04:00] VITALS: BP_SYST 148
[2017-07-10 08:02] VITALS: BP_SYST 163
[2017-07-10] MEDS: OMEPRAZOLE 20 MG CAPSULE.DR (PriLOSEC) PO SCH (08:28)
[2017-07-10] MEDS: PREDNISONE 20 MG TABLET PO SCH ×2 (08:28→23:11)
[2017-07-10] MEDS: FERROUS SULFATE 325 MG TABLET.DR PO SCH ×3 (08:28→23:11)
[2017-07-10] MEDS: CARVEDILOL 12.5 MG TABLET (COREG) PO SCH ×2 (08:29→17:05)
[2017-07-10] MEDS: APIXABAN 2.5 MG TABLET PO SCH ×2 (08:29→23:11)
[2017-07-10] MEDS: DESMOPRESSIN 0.1 MG TAB (DDAVP) PO SCH (08:30)
[2017-07-10] MEDS: FLUTICASONE PROPIONATE 50 mCg/SPRAY 16 GM NS SCH ×2 (08:30→23:10)
[2017-07-10 13:13] VITALS: BP_SYST 142
[2017-07-10] MEDS: cefTRIAXone 1 GM in D5W 50 ML IV SCH (17:04)
[2017-07-10] MEDS: MONTELUKAST 10 MG TABLET PO SCH (17:04)
[2017-07-10 17:17] VITALS: BP_SYST 139
[2017-07-10] MEDS ORDERED: POTASSIUM CHLORIDE 20 MEQ TAB.PRT.SR PO ONE (18:15)
[2017-07-10] MEDS ORDERED: FUROSEMIDE 40 MG/4 ML VIAL IVP ONE (18:15)
[2017-07-10 19:45] VITALS: BP_SYST 148
[2017-07-10] MEDS: TAMSULOSIN HCL 0.4 MG CAP PO SCH (23:11)
[2017-07-11 00:53] VITALS: BP_SYST 135
[2017-07-11 04:50] VITALS: BP_SYST 135
[2017-07-11 07:50] LABS: BASOPHILS % (AUTO) 0.2 % (0.0-2.0); EOSINOPHILS % (AUTO) 0.1 % (0.0-4.0); HEMOGLOBIN 10.1 g/dL (14.0-18.0); LYMPHOCYTES # (AUTO) 4.5 K/uL (1.0-5.5); LYMPHOCYTES % (AUTO) 33.6 % (20.5-51.5); MEAN CORPUSCULAR HEMOGLOBIN 32 pg (27-31); MEAN CORPUSCULAR HGB CONC 34 % (32-36); MEAN CORPUSCULAR VOLUME 94 fL (79.0-98.0); MONOCYTES # (AUTO) 0.8 K/uL (0.0-1.0); NEUTROPHILS % (AUTO) 60.1 % (40.0-70.0); PLATELET COUNT (AUTO) 107 K/uL (130-430); RED BLOOD CELL COUNT(AUTO) 3.19 MIL/uL (4.2-6.2); RED CELL DISTRIBUTION WIDTH 17.4 % (9.0-15.0); WHITE BLOOD COUNT (AUTO) 13.3 K/uL (4.8-10.8)
[2017-07-11 08:03] VITALS: BP_SYST 132
[2017-07-11] MEDS: CARVEDILOL 12.5 MG TABLET (COREG) PO SCH ×2 (09:00→17:58)
[2017-07-11] MEDS: APIXABAN 2.5 MG TABLET PO SCH ×2 (09:00→20:41)
[2017-07-11] MEDS: FLUTICASONE PROPIONATE 50 mCg/SPRAY 16 GM NS SCH ×2 (09:00→20:41)
[2017-07-11] MEDS: DESMOPRESSIN 0.1 MG TAB (DDAVP) PO SCH (09:00)
[2017-07-11] MEDS: FERROUS SULFATE 325 MG TABLET.DR PO SCH ×3 (09:00→20:44)
[2017-07-11] MEDS: PREDNISONE 20 MG TABLET PO SCH ×2 (09:00→20:41)
[2017-07-11] MEDS: OMEPRAZOLE 20 MG CAPSULE.DR (PriLOSEC) PO SCH (09:00)
[2017-07-11] MEDS: NACL 0.9% 1,000 ML IV SCH ×2 (09:00→17:59)
[2017-07-11 09:19] LABS: ANION GAP 5 (5-15); CALCIUM 8.6 mg/dL (8.4-11.0); CHLORIDE 105 mmol/L (98-107); GLUCOSE 119 mg/dL (70-99); POTASSIUM 3.9 mmol/L (3.5-5.1); SODIUM SERUM 138 mmol/L (136-145); UREA NITROGEN, BLOOD 21 mg/dL (8-21)
[2017-07-11 12:01] VITALS: BP_SYST 135
[2017-07-11 16:01] VITALS: BP_SYST 127
[2017-07-11] MEDS: MONTELUKAST 10 MG TABLET PO SCH (17:57)
[2017-07-11] MEDS: cefTRIAXone 1 GM in D5W 50 ML IV SCH (17:57)
[2017-07-11 19:40] VITALS: BP_SYST 151
[2017-07-11] MEDS: TAMSULOSIN HCL 0.4 MG CAP PO SCH (20:41)
[2017-07-12 00:34] VITALS: BP_SYST 142
[2017-07-12 04:02] VITALS: BP_SYST 141
[2017-07-12] MEDS: NACL 0.9% 1,000 ML IV SCH ×2 (04:35→14:42)
[2017-07-12 08:07] VITALS: BP_SYST 151
[2017-07-12] MEDS: PREDNISONE 20 MG TABLET PO SCH ×2 (08:20→21:27)
[2017-07-12] MEDS: FLUTICASONE PROPIONATE 50 mCg/SPRAY 16 GM NS SCH ×2 (08:20→21:27)
[2017-07-12] MEDS: CARVEDILOL 12.5 MG TABLET (COREG) PO SCH ×2 (08:20→17:11)
[2017-07-12] MEDS: APIXABAN 2.5 MG TABLET PO SCH ×2 (08:20→21:27)
[2017-07-12] MEDS: OMEPRAZOLE 20 MG CAPSULE.DR (PriLOSEC) PO SCH (08:20)
[2017-07-12] MEDS: DESMOPRESSIN 0.1 MG TAB (DDAVP) PO SCH (08:21)
[2017-07-12] MEDS: FERROUS SULFATE 325 MG TABLET.DR PO SCH ×3 (08:21→21:00)
[2017-07-12 12:09] VITALS: BP_SYST 122
[2017-07-12 16:04] VITALS: BP_SYST 144
[2017-07-12] MEDS: POTASSIUM CHLORIDE 20 MEQ TAB.PRT.SR PO SCH (17:10)
[2017-07-12] MEDS: FUROSEMIDE 40 MG/4 ML VIAL IVP SCH (17:11)
[2017-07-12] MEDS: MONTELUKAST 10 MG TABLET PO SCH (17:11)
[2017-07-12] MEDS ORDERED: POTASSIUM CHLORIDE 20 MEQ TAB.PRT.SR ONE (17:12)
[2017-07-12] MEDS ORDERED: FUROSEMIDE 40 MG/4 ML VIAL ONE (17:13)
[2017-07-12] MEDS: cefTRIAXone 1 GM in D5W 50 ML IV SCH (17:55)
[2017-07-12 20:00] VITALS: BP_SYST 129
[2017-07-12] MEDS: TAMSULOSIN HCL 0.4 MG CAP PO SCH (21:27)
[2017-07-13 00:21] VITALS: BP_SYST 144
[2017-07-13] MEDS: NACL 0.9% 1,000 ML IV SCH ×3 (01:39→19:15)
[2017-07-13 04:30] VITALS: BP_SYST 133
[2017-07-13 07:09] LABS: BASOPHILS % (AUTO) 0.2 % (0.0-2.0); HEMATOCRIT 30.2 % (36-54); MONOCYTES # (AUTO) 0.6 K/uL (0.0-1.0); MONOCYTES % (AUTO) 5.8 % (1.7-9.3)
[2017-07-13 07:14] LABS: EOSINOPHILS % (AUTO) 0.1 % (0.0-4.0); HEMOGLOBIN 9.9 g/dL (14.0-18.0); LYMPHOCYTES # (AUTO) 3.7 K/uL (1.0-5.5); LYMPHOCYTES % (AUTO) 34.9 % (20.5-51.5); MEAN CORPUSCULAR HEMOGLOBIN 31 pg (27-31); MEAN CORPUSCULAR HGB CONC 33 % (32-36); MEAN CORPUSCULAR VOLUME 95 fL (79.0-98.0); NEUTROPHILS # (AUTO) 6.4 K/uL (1.8-7.7); PLATELET COUNT (AUTO) 100 K/uL (130-430); RED BLOOD CELL COUNT(AUTO) 3.18 MIL/uL (4.2-6.2); RED CELL DISTRIBUTION WIDTH 18.2 % (9.0-15.0); WHITE BLOOD COUNT (AUTO) 10.7 K/uL (4.8-10.8)
[2017-07-13 07:20] LABS: ANION GAP 4 (5-15); CALCIUM 8.5 mg/dL (8.4-11.0); CHLORIDE 106 mmol/L (98-107); CREATININE 0.71 mg/dL (0.55-1.30); GLUCOSE 125 mg/dL (70-99); SODIUM SERUM 140 mmol/L (136-145); UREA NITROGEN, BLOOD 20 mg/dL (8-21)
[2017-07-13] MEDS: FERROUS SULFATE 325 MG TABLET.DR PO SCH ×4 (09:11→21:40)
[2017-07-13] MEDS: POTASSIUM CHLORIDE 20 MEQ TAB.PRT.SR PO SCH (09:11)
[2017-07-13] MEDS: PREDNISONE 20 MG TABLET PO SCH ×2 (09:11→21:39)
[2017-07-13] MEDS: OMEPRAZOLE 20 MG CAPSULE.DR (PriLOSEC) PO SCH (09:11)
[2017-07-13] MEDS: APIXABAN 2.5 MG TABLET PO SCH ×2 (09:11→21:39)
[2017-07-13] MEDS: CARVEDILOL 12.5 MG TABLET (COREG) PO SCH ×2 (09:12→19:42)
[2017-07-13] MEDS: FUROSEMIDE 40 MG/4 ML VIAL IVP SCH (09:13)
[2017-07-13] MEDS: FLUTICASONE PROPIONATE 50 mCg/SPRAY 16 GM NS SCH ×2 (09:14→21:39)
[2017-07-13 12:05] VITALS: BP_SYST 123
[2017-07-13] MEDS: cefTRIAXone 1 GM in D5W 50 ML IV SCH (15:28)
[2017-07-13] MEDS: DESMOPRESSIN 0.1 MG TAB (DDAVP) PO SCH (15:46)
[2017-07-13 15:52] VITALS: BP_SYST 152
[2017-07-13] MEDS: MONTELUKAST 10 MG TABLET PO SCH (19:42)
[2017-07-13 20:00] VITALS: BP_SYST 142
[2017-07-13] MEDS: TAMSULOSIN HCL 0.4 MG CAP PO SCH (21:40)
[2017-07-14 00:13] VITALS: BP_SYST 126
[2017-07-14 04:39] VITALS: BP_SYST 127
[2017-07-14] MEDS: NACL 0.9% 1,000 ML IV SCH (05:41)
[2017-07-14 07:13] LABS: BASOPHILS % (AUTO) 0.1 % (0.0-2.0); HEMATOCRIT 30.4 % (36-54); LYMPHOCYTES % (AUTO) 34.5 % (20.5-51.5); MEAN CORPUSCULAR HEMOGLOBIN 32 pg (27-31); MEAN CORPUSCULAR HGB CONC 33 % (32-36); MEAN CORPUSCULAR VOLUME 96 fL (79.0-98.0); MONOCYTES # (AUTO) 0.5 K/uL (0.0-1.0); MONOCYTES % (AUTO) 4.3 % (1.7-9.3); NEUTROPHILS # (AUTO) 7.2 K/uL (1.8-7.7); NEUTROPHILS % (AUTO) 61.1 % (40.0-70.0); PLATELET COUNT (AUTO) 92 K/uL (130-430); RED BLOOD CELL COUNT(AUTO) 3.18 MIL/uL (4.2-6.2); RED CELL DISTRIBUTION WIDTH 18.5 % (9.0-15.0); WHITE BLOOD COUNT (AUTO) 11.7 K/uL (4.8-10.8)
[2017-07-14 07:20] LABS: THYROID STIMULATING HORMONE 0.74 uIu/mL (0.34-4.82)
[2017-07-14 08:11] LABS: FREE T4 (FREE THYROXINE) 1.1 ng/dL (0.6-1.6)
[2017-07-14] MEDS: APIXABAN 2.5 MG TABLET PO SCH (08:11)
[2017-07-14] MEDS: POTASSIUM CHLORIDE 20 MEQ TAB.PRT.SR PO SCH (08:11)
[2017-07-14] MEDS: PREDNISONE 20 MG TABLET PO SCH (08:11)
[2017-07-14] MEDS: FERROUS SULFATE 325 MG TABLET.DR PO SCH (08:11)
[2017-07-14] MEDS: FUROSEMIDE 40 MG/4 ML VIAL IVP SCH (08:11)
[2017-07-14] MEDS: OMEPRAZOLE 20 MG CAPSULE.DR (PriLOSEC) PO SCH (08:12)
[2017-07-14] MEDS: DESMOPRESSIN 0.1 MG TAB (DDAVP) PO SCH (08:12)
[2017-07-14] MEDS: FLUTICASONE PROPIONATE 50 mCg/SPRAY 16 GM NS SCH (08:12)
[2017-07-14] MEDS: CARVEDILOL 12.5 MG TABLET (COREG) PO SCH (08:12)
[2017-07-14 11:52] VITALS: BP_SYST 124
[2017-07-14 13:15] VITALS: BP_SYST 124
== END 2017-07-14 14:45 | DRG 871 ==
LOC: SED 16:52 → STU 18:40 → SMU 07-04 13:00
PROVIDERS: ADMIT Internal Medicine; ATTEND Internal Medicine
DX: A41.9 Sepsis, unspecified organism (principal); E43 Unspecified severe protein-calorie malnutrition; C91.10 Chronic lymphocytic leukemia of B-cell type not having achieved remission; D69.6 Thrombocytopenia, unspecified; I50.9 Heart failure, unspecified; N39.0 Urinary tract infection, site not specified; E86.0 Dehydration; M25.041 Hemarthrosis, right hand; G89.29 Other chronic pain; M54.9 Dorsalgia, unspecified; I48.91 Unspecified atrial fibrillation; D64.9 Anemia, unspecified; N40.1 Benign prostatic hyperplasia with lower urinary tract symptoms; I25.10 Atherosclerotic heart disease of native coronary artery without angina pectoris; Z16.24 Resistance to multiple antibiotics; R33.8 Other retention of urine; Z95.810 Presence of automatic (implantable) cardiac defibrillator; N20.0 Calculus of kidney; Z87.440 Personal history of urinary (tract) infections; Z79.01 Long term (current) use of anticoagulants; Z68.28 Body mass index [BMI] 28.0-28.9, adult; Z79.899 Other long term (current) drug therapy
CPT/HCPCS: 36415; 80048; 80053; 80170-TC; 80202-TC; 81000-TC; 83605; 83880; 84439; 84443-TC; 85025; 85610-TC; 85730-TC; 87040-TC; 87081; 87086; 87186-TC; 93970; 96365; 97110-GP; 97116-GP; 97530-GP; 99285; J0692; J0696; J1580; J1940; J2543; J3370; J7030; J7050; J7060; J7512